=== PATIENT | female | born 1940 | race Caucasian/White ===

== ENCOUNTER → 2017-03-11 | Outpatient (CLI) | payer OTHER, MEDICARE ==
[~2017-03-11] MED LIST: ALL100 PO; ATEN-175 PO; FELO10TA2 PO; LISI40TA PO; LSX20 PO
--- NOTE | 2017-03-11 08:13 | MAMMOGRAPHY REPORT ---
BILATERAL DIGITAL SCREENING MAMMOGRAM WITH CAD: 03/11/2017 CLINICAL HISTORY: Routine screening. Patient has no complaints. TECHNIQUE: Bilateral CC and MLO views were obtained. Current study was also evaluated with a Compute r Aided Detection (CAD) system. COMPARISON: Comparison is made to exams dated: 03/10/2016 mammogram, 03/07/2015 mammogram, 02/24/2013 m ammogram, 02/23/2012 mammogram, 02/13/2011 mammogram, and 02/07/2010 mammogram - [facility]. BREAST COMPOSITION: There are scattered areas of fibroglandular density in both breasts. FINDINGS: There are benign coarse calcifications in the breasts, and a stable intramammary lymph node in the right upper outer quadrant. No new suspicious mass, architectural distortion or cluster of m icrocalcifications is seen. IMPRESSION: ACR BI-RADS CATEGORY 1: NEGATIVE There is no mammographic evidence of malignancy. A 1 year screening mammogram is recommended. The pa tient will receive written notification of the results. Approximately 10% of breast cancers are not detected with mammography. A negative mammographic report should not delay biopsy if a clinically suggestive mass is present. Dixie Romero M.D. ay/:03/11/2017 07:36:32 Intellectual Property Manager: Chrissy MCCRAY(R)(Xi), [facility] letter sent: Normal 1/2 BI-RADS Code: ACR BI-RADS Category 1: Negative
== END | disposition home or self-care (01) ==
LOC: C.MAMM 07:09
PROVIDERS: ATTEND Family Medicine
DX: Z12.31 Encounter for screening mammogram for malignant neoplasm of breast (principal)

== ENCOUNTER 2020-12-21 12:10 | Inpatient (IN) ==
[2020-12-21 14:36] LABS: Basophils # (auto) 0.03 K/uL (0-0.2); Basophils % (auto) 0.3 %; Eosinophils # (auto) 0.02 K/uL (0-0.5); Eosinophils % (auto) 0.2 %; Hematocrit (blood only) 38.6 % (37-47); Hemoglobin 13.1 g/dL (12.0-16.0); Immature Granulocytes # (auto) 0.02 K/uL (0.00-0.02); Immature Granulocytes % (auto) 0.2 %; Lymphocytes # (auto) 1.32 K/uL (1.2-3.4); Lymphocytes % (auto) 13.6 %; Mean Corpuscular Hgb Conc 33.9 g/dL (32-36); Mean Corpuscular Volume 97.2 fL (80-100); Mean Platelet Volume 10.3 fL (7.4-10.4); Monocytes # (auto) 1.03 K/uL (0.11-0.59); Monocytes % (auto) 10.6 %; Neutrophils # (auto) 7.32 K/uL (1.4-6.5); Neutrophils % (auto) 75.1 %; Platelet Count 167 K/uL (130-400); RDW Coefficient of Variation 14.5 % (11.5-14.5); RDW Standard Deviation 51.6 fL (36.4-46.3); Red Blood Count 3.97 M/uL (4.2-5.4); White Blood Count 9.74 K/uL (4.8-10.8)
[2020-12-21 15:02] LABS: Albumin Globulin Ratio 0.8 (0.9-2); BUN Creatinine Ratio 28.2 (10-20); Bilirubin,Total 0.5 mg/dl (0.2-1); Creatinine Clr Calc Pharmacy 26.8 ml/min; Est GFR (African American) 41.5 ml/min; Est GFR (Non-African American) 35.8 ml/min; Globulin 3.9 gm/dl (2.5-4.0); Total Protein 6.9 gm/dl (6.4-8.2)
--- NOTE | 2020-12-21 15:23 | Surgery Consultation ---
Date of Consultation December 21, 2020 Assessment & Plan (1) SBO (small bowel obstruction): 80 yo female with 1 month history of intermittent vomiting, decreased appetite, early satiety, and weight loss. Outpatient CT scan showing history of Billroth II procedure with distended stomach and distended efferent loop of bowel. - afebrile, vitals stable - abdomen is soft and benign Plan: Recommend medicine admit for conservative treatment with NGT decompression, bowel rest, and IV fluid hydration. She likely will feel much better with NGT insertion given amount of stomach distention She may need outpatient follow-up with Surgeon in [place] if her symptoms persists given her Billroth II procedure and complex abdominal history Will follow along. Dr. Obregon has seen and examined patient, discussed CT scan findings with patient. Please see addendum for further recommendations/plan. Supervising Physician Co-Signing Physician Notes Pt personally seen and examined. Agree with history and physical as per SUNIL Jules. Symptoms have been going on for last month, minimal pain but intermittent nausea and vomiting. CT scan done today (personally reviewed) shows partial SBO of efferent limb. She had quite a complicated course following her Billroth 2 with fistula formation, poor wound healing. Agree with medical admission, ng decompression, bowel rest. History of Present Illness Reason for Consultation: SBO Requesting Physician: Dr. Aguirre History of Present Illness Bette is a pleasant 80 yo female who presented to ED due to 1 month history of intermittent vomiting with associated low appetite and 15 pound weight loss. 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 difficile infection. She was seen at her pcp office earlier this week and had labs and CT scan of abdomen and pelvis with oral contrast only due to the intermittent vomiting and weight loss, fatigue, and anorexia. Bette states that these symptoms have been intermittent and no progressing. Some days are good some days are better. No vomiting blood. No significant abdominal pain with these symptoms either. CT scan of abdomen and pelvis showing postsurgical changes of Billroth II procedure with distended debris and fluid filled stomach and distention of efferent loop of bowel crossing over the abdominal aorta. There is contrast seen in distal bowel to this transition point likely a partial bowel obstruction. She has no leukocytosis. Her creatinine slightly elevated but improved compared to outpatient labs 1.6 two days ago. Allergies Allergy/AdvReac Type Severity Reaction Status Date / Time No Known Allergies Allergy Unknown Verified 12/21/20 15:16 Home Medications Medication Instructions Recorded Confirmed Type allopurinol 100 mg tablet 100 mg PO QAM 05/04/18 12/21/20 History clonidine HCl 0.1 mg tablet 0.1 mg PO QAM 05/04/18 12/21/20 History furosemide 20 mg tablet 20 mg PO QAM PRN 05/04/18 12/21/20 History lisinopril 40 mg tablet 40 mg PO QAM 05/04/18 12/21/20 History multivitamin 1 tab PO QAM 05/04/18 12/21/20 History vit C,E,zinc,copper-zmuhk4l 250 1 cap PO QAM 09/02/20 12/21/20 History mg-lutein 5 mg-zeaxanthin 1 mg capsule (Ocuvite Adult 50 Plus) Patient History Medical History (Updated 12/21/20 @ 15:20 by Perlita Armas PA-C) GI bleed Gout Hypertension Poor historian Surgical History (Updated 12/21/20 @ 15:15 by Perlita Armas PA-C) History of abdominal surgery R/T GI BLEED History of Billroth II operation History of cataract surgery RT History of cholecystectomy History of tooth extraction History of total knee replacement BL Social History (Updated 08/30/20 @ 15:22 by Ammon Delgadillo) Smoking Status: Never smoker Second Hand Exposure: No; Hx Alcohol Use: Yes Alcohol type: wine Hx Substance Use: No Preferred Language: Icelandic Communication Ability: Effective 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 Beliefs That Will Affect Care: None marital status: / Current Living Situation: Alone current occupational status: retired Feels Safe at Home: Yes Assistive Devices: Denture - Lower and Glasses Review of Systems Review of Systems: as per HPI Physical Exam Constitutional: well developed and well nourished; no acute distress in no acute distress Respiratory: normal respiratory effort, lungs clear to auscultation normal respiratory effort; no respiratory distress and no labored breathing Cardiovascular: Rate/Rhythm: regular rate and regular rhythm Gastrointestinal (Abdomen): Inspection/Auscultation: abdomen normal to inspection, + abdomen distended, normal bowel sounds and + abdominal surgical scar (cholecystectomy scar RUQ, upper midline scar) Percussion/Palpation: + abdomen tender (appropriate post op at incision sites), abdomen soft and + hernia (supraumbilical , reducible, defect measures about 2 cm) Skin: no rashes, warm and dry Neurologic: awake Psychiatric: A+Ox3, euthymic affect Results & Data ([place]) Vital Signs (Past 12 Hours) Vital Signs Temp Pulse Pulse Resp BP BP Pulse Ox 12/21/20 14:07 88 20 94 12/21/20 13:25 85 20 133/85 12/21/20 12:17 37 C 111 H 18 102/58 L 96 Laboratory Results 12/21/20 12/21/20 Range/Units 14:24 14:24 WBC 9.74 (4.8-10.8) K/uL RBC 3.97 L (4.2-5.4) M/uL Hgb 13.1 (12.0-16.0) g/dL Hct 38.6 (37-47) % MCV 97.2 (80-100) fL MCH 33.0 (25-34) pg MCHC 33.9 (32-36) g/dL RDW Std Deviation 51.6 H (36.4-46.3) fL RDW Coeff of Robert 14.5 (11.5-14.5) % Plt Count 167 (130-400) K/uL MPV 10.3 (7.4-10.4) fL Immature Gran % (Auto) 0.2 % Neut % (Auto) 75.1 % Lymph % (Auto) 13.6 % [place] % (Auto) 10.6 % Eos % (Auto) 0.2 % Baso % (Auto) 0.3 % Neut # (Auto) 7.32 H (1.4-6.5) K/uL Lymph # (Auto) 1.32 (1.2-3.4) K/uL [place] # (Auto) 1.03 H (0.11-0.59) K/uL Eos # (Auto) 0.02 (0-0.5) K/uL Baso # (Auto) 0.03 (0-0.2) K/uL Immature Gran # (Auto) 0.02 (0.00-0.02) K/uL Sodium 136 (136-145) mmol/L Potassium (3.5-5.1) mmol/L Chloride 105 (98-107) mmol/L Carbon Dioxide 24 (21-32) mmol/L Anion Gap 7.0 (3-11) BUN 39 H (7-18) mg/dl Creatinine 1.37 H (0.6-1.2) mg/dl Est Cr Clr Drug Dosing 26.8 ml/min Est GFR ( Amer) 41.5 ml/min Est GFR (Non-Af Amer) 35.8 ml/min BUN/Creatinine Ratio 28.2 H (10-20) Glucose 110 H (70-99) mg/dl Calcium 9.0 (8.5-10.1) mg/dl Total Bilirubin 0.5 (0.2-1) mg/dl AST (15-37) U/L ALT 18 (12-78) U/L Alkaline Phosphatase 90 (45-117) U/L Total Protein 6.9 (6.4-8.2) gm/dl Albumin 3.0 L (3.4-5.0) gm/dl Globulin 3.9 (2.5-4.0) gm/dl Albumin/Globulin Ratio 0.8 L (0.9-2) Lipase 230 (73-393) U/L Diagnostic Findings Ct scan of abdomen and pelvis with oral contrast only at [facility]: postsurgical changes of Billroth II procedure with distended fluid and debris filled stomach with distention of efferent limb of bowel which decompressed around aorta and contrast was seen in distal bowel.
--- NOTE | 2020-12-21 16:44 | History & Physical Report ---
Date of Service December 21, 2020 Assessment & Plan (1) SBO (small bowel obstruction): Plan: Pt is 80 y/o F with PMH HTN, dyslipidemia, LE edema, CKD III, gout presented to ER with complaint of intermittent nausea and vomiting x1 month. Outpatient CT abdomen pelvis with oral contrast Impression: 1. Postsurgical changes of Billroth II procedure. The stomach is distended with fluid and food debris. There is dilation of the efferent limb of the small bowel with focal transition point as the small bowel crosses anterior to the aorta and posterior to the stomach. This likely represents a partial obstruction. 2. 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 3. Partially visualized calcified mass arising from the coccyx incompletely evaluated on this exam. Dedicated pelvic radiographs are recommended for further evaluation In ER patient afebrile, no leukocytosis. NG tube was placed and over 500 mL output initially. KUB after NG tube placement shows NG tube within distal body of stomach N.p.o. Gentle IVF KUB in a.m. General surgery consult, saw patient in ER recommends conservative measures at this time CBC, BMP in a.m. (2) Hypertension: Plan: Will convert oral clonidine to clonidine patch while n.p.o. Hold lisinopril, Lasix (3) CKD (chronic kidney disease), stage III: Plan: Cr: 1.37. Baseline Cr: ~1.6 Monitor renal functions, avoid nephrotoxic agents when possible (4) Leg edema: Plan: Chronic BLE edema. Denies any worsening Hold Lasix currently (5) Gout: Plan: Hold allopurinol for now n.p.o. DVT Prophylaxis -SCDs Full Code as per discussion with pt Follows with Dr Love for routine care Pt was seen and care coordinated with Dr Tate. See addendum History of Present Illness Chief Complaint: Abnormal CT scan Primary Care Provider: Daniel Love, Pt is 80 y/o F with PMH HTN, dyslipidemia, LE edema, CKD III, gout presented to ER with complaint of intermittent nausea and vomiting x1 month. Reports episodes of vomiting after eating for the past month. Patient denies abdominal discomfort. Reports last bowel movement several days ago. Does not feel like she has been passing flatus. Denies fever, chills, hematemesis, diarrhea, melena, hematochezia, JASSO, dizziness, syncope, vision changes, neck pain, CP, SOB, orthopnea, palpitations, cough, sore throat, choking, otalgia, rhinorrhea, paresthesias, weakness, extremity weakness, extremity edema, rashes, urinary symptoms. Pt followed up with PCP had outpatient CT abdomen/pelvis today and was referred to ER. CT abdomen pelvis with oral contrast Impression: 1. Postsurgical changes of Billroth II procedure. The stomach is distended with fluid and food debris. There is dilation of the efferent limb of the small bowel with focal transition point as the small bowel crosses anterior to the aorta and posterior to the stomach. This likely represents a partial obstruction. 2. 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 3. Partially visualized calcified mass arising from the coccyx incompletely evaluated on this exam. Dedicated pelvic radiographs are recommended for further evaluation In ER patient afebrile, no leukocytosis. NG tube was placed and over 500 mL output initially. KUB after NG tube placement shows NG tube within distal body of stomach. Patient being admitted for further evaluation and treatment Allergies Allergy/AdvReac Type Severity Reaction Status Date / Time No Known Allergies Allergy Unknown Verified 12/21/20 15:16 Home Medications Medication Instructions Recorded Confirmed Type allopurinol 100 mg tablet 100 mg PO QAM 05/04/18 12/21/20 History clonidine HCl 0.1 mg tablet 0.1 mg PO QAM 05/04/18 12/21/20 History furosemide 20 mg tablet 20 mg PO QAM PRN 05/04/18 12/21/20 History lisinopril 40 mg tablet 40 mg PO QAM 05/04/18 12/21/20 History multivitamin 1 tab PO QAM 05/04/18 12/21/20 History vit C,E,zinc,copper-intpw4y 250 1 cap PO QAM 09/02/20 12/21/20 History mg-lutein 5 mg-zeaxanthin 1 mg capsule (Ocuvite Adult 50 Plus) Past Med/Surg History Medical History CKD (chronic kidney disease), stage III Dyslipidemia GI bleed Gout Hypertension Leg edema Poor historian Surgical History History of abdominal surgery R/T GI BLEED History of Billroth II operation History of cataract surgery RT History of cholecystectomy History of tooth extraction History of total knee replacement BL Family History (Updated 12/21/20 @ 20:29 by Carolina Cornell PA-C) Father Cancer Brother Heart disease Mother Hypertension Social History Smoking Status: Never smoker Second Hand Exposure: No; Do You Dip or Chew Tobacco: No; Hx Alcohol Use: No Hx Substance Use: No Preferred Language: P[place] Communication Ability: Effective 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 Beliefs That Will Affect Care: None marital status: / Current Living Situation: Alone current occupational status: retired Other Information That Helps Us Care for You: No Feels Safe at Home: Yes Safety Concerns: Feels Safe At This Time Assistive Devices: None and Walker Assistive Devices Comment: Cane out of house Medical History CKD (chronic kidney disease), stage III Dyslipidemia GI bleed Gout Hypertension Leg edema Poor historian Surgical History History of abdominal surgery R/T GI BLEED History of Billroth II operation History of cataract surgery RT History of cholecystectomy History of tooth extraction History of total knee replacement BL Family History (Updated 12/21/20 @ 20:29 by Carolina Cornell PA-C) Father Cancer Brother Heart disease Mother Hypertension Social History Smoking Status: Never smoker Second Hand Exposure: No; Do You Dip or Chew Tobacco: No; Hx Alcohol Use: No Hx Substance Use: No Preferred Language: P[place] Communication Ability: Effective 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 Beliefs That Will Affect Care: None marital status: / Current Living Situation: Alone current occupational status: retired Other Information That Helps Us Care for You: No Feels Safe at Home: Yes Safety Concerns: Feels Safe At This Time Assistive Devices: None and Walker Assistive Devices Comment: Cane out of house Review of Systems Review of Systems: All systems reviewed & are unremarkable except as noted in HPI & below Physical Exam Physical Exam: General: no distress, WDWN Head: normocephalic, atraumatic Eyes: conjunctiva non-injected, anicteric ENT: hard of hearing, normal inspection external ears, nose, mucous membranes moist, +NG tube in place Neck: supple, trachea midline Lungs: clear, no respiratory distress, no wheezing/rhonchi/rales CV: RRR, no murmur Abd: hypoactive BS, distended, soft, non-tender Ext: no cyanosis, no calf tenderness, +edema BLE Neuro: A&O x 3, no focal deficits noted, normal affect Skin: warm, dry Results & Data Results & Data ([facility]) Vital Signs (Past 12 Hours) Vital Signs Temp Pulse Pulse Resp BP BP Pulse Ox 12/21/20 15:00 86 20 159/93 H 99 12/21/20 14:07 88 20 94 12/21/20 13:25 85 20 133/85 12/21/20 12:17 37 C 111 H 18 102/58 L 96 Laboratory Results Short CBC 12/21/20 Range/Units 14:24 WBC 9.74 (4.8-10.8) K/uL Hgb 13.1 (12.0-16.0) g/dL Hct 38.6 (37-47) % Plt Count 167 (130-400) K/uL BMP 12/21/20 14:24 Sodium 136 Potassium Chloride 105 Carbon Dioxide 24 BUN 39 H Creatinine 1.37 H Glucose 110 H Calcium 9.0 Liver Function 12/21/20 Range/Units 14:24 Total Bilirubin 0.5 (0.2-1) mg/dl AST (15-37) U/L ALT 18 (12-78) U/L Alkaline Phosphatase 90 (45-117) U/L Albumin 3.0 L (3.4-5.0) gm/dl Diagnostic Findings KUB X-Ray 12/21/20 16:21 KUB CLINICAL HISTORY: assess NG tube placement COMPARISON STUDY: CT of the abdomen and pelvis September 02, 2020. FINDINGS: The tip of the nasogastric tube projects over the distal body of the stomach. Ingested contents within the stomach are incidentally noted. Visualized bowel gas pattern is normal. IMPRESSION: Tip of nasogastric tube within the distal body of the stomach. ACT 112: Negative or not required by law. Electronically signed by: Dick Lackey M.D. 12/21/2020 5:15 PM Code Status & VTE Plan VTE Prophylaxis Plan VTE Prophylaxis will be ordered: Yes Supervising Physician Co-Signing Physician Notes Pt was seen and examined. Agreed with Carolina GARCIA exam, assessment and Plan. 80 y/o F with PMH HTN, dyslipidemia, LE edema, CKD III, gout presented to ER with complaint of intermittent nausea and vomiting x1 month. Pt said that she has been having episodes of N/V after each meal. He said that she has not had a bowel movement for days. Denies fever, chills, hematemesis, diarrhea, melena, h ematochezia, JASSO, dizziness, syncope, vision changes, neck pain, CP, SOB, orthopnea, palpitations, cough, sore throat. In the ER CT abd/pelvis showed ilation of the efferent limb of the small bowel with focal transition point as the small bowel crosses anterior to the aorta and posterior to the stomach. This likely represents a partial obstruction. NGT was placed in the ER and over 500 mL output initially. KUB after NG tube placement shows NG tube within distal body of stomach. Surgery was consulted and recommended conservative management. Continue gently IVF hydration. Will keep NPO. Will check KUB in am. Continue monitor electrolytes. Will monitor closely during the hospital course. MD Bebeto
--- NOTE | 2020-12-21 17:17 | XRay Report ---
KUB CLINICAL HISTORY: assess NG tube placement COMPARISON STUDY: CT of the abdomen and pelvis September 02, 2020. FINDINGS: The tip of the nasogastric tube projects over the distal body of the stomach. Ingested cont ents within the stomach are incidentally noted. Visualized bowel gas pattern is normal. IMPRESSION: Tip of nasogastric tube within the distal body of the stomach. ACT 112: Negative or not required by law. Electronically signed by: Dick Lackey M.D. 12/21/2020 5:15 PM
[2020-12-21] MEDS ORDERED: cloNIDine HCL 0.1 MG/24 HR TRANSDERM SYS TD SCH (21:09)
[2020-12-21] MEDS ORDERED: ONDANSETRON INJ 2 MG/ML 2 ML VIAL IV PRN (21:09)
[2020-12-21] MEDS ORDERED: ACETAMINOPHEN 1000 MG/100 ML IV IV PRN (21:09)
[2020-12-21] MEDS ORDERED: SODIUM CHLORIDE 0.9% 1000ML 1,000 ML IV SCH (21:09)
[2020-12-22] MEDS: CHECK CLONIDINE PATCH PLACEMENT SCH ×3 (00:15→17:13)
[2020-12-22 07:46] LABS: Hematocrit (blood only) 39.4 % (37-47); Hemoglobin 13.4 g/dL (12.0-16.0); Mean Corpuscular Hemoglobin 33.3 pg (25-34); Mean Platelet Volume 10.2 fL (7.4-10.4); Platelet Count 172 K/uL (130-400); RDW Coefficient of Variation 14.4 % (11.5-14.5); RDW Standard Deviation 51.6 fL (36.4-46.3); Red Blood Count 4.02 M/uL (4.2-5.4)
[2020-12-22 08:16] LABS: BUN Creatinine Ratio 29.6 (10-20); Calcium 8.4 mg/dl (8.5-10.1); Creatinine Clr Calc Pharmacy 34.2 ml/min; Est GFR (African American) 54.7 ml/min; Est GFR (Non-African American) 47.2 ml/min; Potassium 3.9 mmol/L (3.5-5.1)
--- NOTE | 2020-12-22 08:35 | XRay Report ---
KUB HISTORY: Small bowel obstruction. Follow-up. COMPARISON: KUB 12/21/2020. FINDINGS: Nasogastric tube terminates in the stomach. This remains unchanged. Residual contrast withi n the colon. There is moderate well-formed stool seen within the colon and rectum. No dilated loops o f small bowel identified at this time. The lung bases are clear. No renal calculi. No ureteral calcu li. No pneumoperitoneum or pneumatosis. IMPRESSION: 1. Nasogastric tube terminates in the stomach. 2. No dilated loops of bowel. ACT 112: Negative or not required by law. Electronically signed by: Tyler Kaplan M.D. 12/22/2020 8:34 AM
--- NOTE | 2020-12-22 11:10 | Surgery Progress Note ---
Date of Service December 22, 2020 Assessment & Plan (1) SBO (small bowel obstruction): Plan: 80 yo female with 1 month history of intermittent vomiting, decreased appetite, early satiety, and weight loss. Outpatient CT scan showing history of Billroth II procedure with distended stomach and distended efferent loop of bowel. AXR following ng tube placement shows resolution of bowel dilation. Abdomen remains benign. Plan:Improving with conservative treatment. Continue ng decompression until tomorrow. If passes gas/ bowel movement, OK to remove ng and slowly advance diet. May benefit from small bowel followthrough at some point given chronicity of her symptoms. She may need outpatient follow-up with Surgeon in [place] if her symptoms persists given her Billroth II procedure and complex abdominal history Present on Admission?: Yes Admission and Anticipated Discharge Date Admission Date: December 21, 2020 Subjective Feels better. NG with 100 cc output overnight. No further nausea/ vomiting. No abdominal pain. No bowel movement yet. Physical Exam Constitutional: well developed and well nourished; no acute distress Respiratory: normal respiratory effort, lungs clear to auscultation normal respiratory effort; no respiratory distress and no labored breathing Cardiovascular: Rate/Rhythm: regular rate and regular rhythm Gastrointestinal (Abdomen): Inspection/Auscultation: abdomen normal to inspection, + abdomen distended, normal bowel sounds and + abdominal surgical scar (cholecystectomy scar RUQ, upper midline scar) Percussion/Palpation: + abdomen tender (appropriate post op at incision sites), abdomen soft and + hernia (supraumbilical , reducible, defect measures about 2 cm) Skin: no rashes, warm and dry Neurologic: awake Psychiatric: A+Ox3, euthymic affect Results & Data ([facility]) Vital Signs (Past 12 Hours) Vital Signs Temp Pulse Pulse Resp BP Pulse Ox 12/22/20 07:57 37 C 80 18 142/84 H 95 12/22/20 07:25 86 12/22/20 03:40 37.1 C 68 18 125/77 97 12/22/20 00:24 86 Laboratory Results Abnormal lab results 12/21/20 12/21/20 12/22/20 Range/Units 14:24 14:24 07:00 RBC 3.97 L 4.02 L (4.2-5.4) M/uL RDW Std Deviation 51.6 H 51.6 H (36.4-46.3) fL Neut # (Auto) 7.32 H (1.4-6.5) K/uL [place] # (Auto) 1.03 H (0.11-0.59) K/uL BUN 39 H (7-18) mg/dl Creatinine 1.37 H (0.6-1.2) mg/dl BUN/Creatinine Ratio 28.2 H (10-20) Glucose 110 H (70-99) mg/dl Calcium (8.5-10.1) mg/dl Albumin 3.0 L (3.4-5.0) gm/dl Albumin/Globulin Ratio 0.8 L (0.9-2) 12/22/20 Range/Units 07:00 RBC (4.2-5.4) M/uL RDW Std Deviation (36.4-46.3) fL Neut # (Auto) (1.4-6.5) K/uL [place] # (Auto) (0.11-0.59) K/uL BUN 32 H (7-18) mg/dl Creatinine (0.6-1.2) mg/dl BUN/Creatinine Ratio 29.6 H (10-20) Glucose (70-99) mg/dl Calcium 8.4 L (8.5-10.1) mg/dl Albumin (3.4-5.0) gm/dl Albumin/Globulin Ratio (0.9-2)
[2020-12-22] MEDS ORDERED: MICONAZOLE NITRATE POWDER 43 GM EXT PRN (13:52)
--- NOTE | 2020-12-22 15:25 | Hospitalist Progress Note ---
Date of Service December 22, 2020 Assessment & Plan (1) SBO (small bowel obstruction): Plan: Pt is 80 y/o F with PMH HTN, dyslipidemia, LE edema, CKD III, gout presented to ER with complaint of intermittent nausea and vomiting x1 month. Outpatient CT abdomen pelvis with oral contrast Impression: 1. Postsurgical changes of Billroth II procedure. The stomach is distended with fluid and food debris. There is dilation of the efferent limb of the small bowel with focal transition point as the small bowel crosses anterior to the aorta and posterior to the stomach. This likely represents a partial obstruction. 2. 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 3. Partially visualized calcified mass arising from the coccyx incompletely evaluated on this exam. Dedicated pelvic radiographs are recommended for further evaluation KUB showed the tip of the nasogastric tube projects over the distal body of the stomach. Ingested contents within the stomach are incidentally noted. Visualized bowel gas pattern is normal. Continue NGT tube with low suction Surgery on board recommended to continue ng decompression until tomorrow. If passes gas/ bowel movement, OK to remove ng and slowly advance diet. Will need outpatient follow-up with Surgeon in [place] if her symptoms persists given her Billroth II procedure and complex abdominal history Keep NPO for now Will continue gentle hydration (2) Hypertension: Plan: Continue clonidine patch while n.p.o. Continue to hold lisinopril, Lasix (3) CKD (chronic kidney disease), stage III: Plan: Creatinine 1.09, Baseline Cr: ~1.6 Monitor renal functions, avoid nephrotoxic agents when possible (4) Leg edema: Plan: Chronic BLE edema. Denies any worsening Continue to hold Lasix currently Will monitor closely (5) Gout: Plan: Continue to hold allopurinol for now while n.p.o. DVT Prophylaxis SCDs Full Code Admission and Anticipated Discharge Date Admission Date: December 21, 2020 Subjective Pt was seen and examined for follow of SBO Lying in bed with no distress Pt said that she feels a little better She said that she is not having any abdominal pain She said that her abdomen feels less distended today Denies any chest pain, palpitation, dizziness and SOB Physical Exam Physical Exam: General- No acute distress Head- atraumatic Eyes- PERRL, EOMI, ENT- NG tube in place Neck- supple, no JVD Lungs- clear to auscultation Heart- regular rhythm; no murmur Abdomen- abdomen soft and + hernia, hypoactive bowel sound Extremities- no calf tenderness Neuro- alert, oriented, PERRL, EOMI; no facial palsy; no dysarthria Skin- warm & dry Results & Data Results & Data ([facility]) Vital Signs (Past 12 Hours) Vital Signs Temp Pulse Pulse Resp BP Pulse Ox 12/22/20 12:00 37 C 67 18 132/60 100 12/22/20 07:57 37 C 80 18 142/84 H 95 12/22/20 07:25 86 12/22/20 03:40 37.1 C 68 18 125/77 97
--- NOTE | 2020-12-22 17:19 | Emergency Department Note ---
Impression & Plan SBO (small bowel obstruction), CKD (chronic kidney disease), stage III ED Provider Note NAME: ORA JARVIS AGE: 80 SEX: F : 1940 ARRIVES VIA: Walk-In INFORMANT: Patient, ED PROVIDER(S): Daryn Aguirre MD CHIEF COMPLAINT: Abnomal CT scan HPI: This is a 80-year-old female who was sent in by the primary care physician over concerns of an abnormal CAT scan. The patient reports she has been unable to eat a normal meal for the past month. She reports only eating small amounts unless she has to vomit. She reports a weight loss with this. She denies any abdominal pain. She went to her primary care doctor's office who had a CAT scan performed. She knows that she has some sort of bowel obstruction on the CAT scan . ROS: See above HPI for pertinent positives & negatives. A total of 10 systems reviewed and were otherwise negative. PAST MEDICAL HISTORY: See Below PAST SURGICAL HISTORY: See Below FAMILY HISTORY: See Below SOCIAL HISTORY: See Below HOME MEDICATIONS: See Below ALLERGIES: See Below VITALS: See Below PHYSICAL EXAMINATION: VITAL SIGNS - Vital signs and nursing notes were reviewed. GENERAL - 80-year-old female appearing stated age who is in no acute distress. Communicates well with provider and answers questions appropriately. SKIN - Without rashes. HEAD - NC/AT. EYES - PERRL with EOMI bilaterally. Sclera anicteric. Palpebral conjunctiva pink and moist with no injection noted. EARS - No deformities of external structures noted on gross examination bilaterally. NOSE - Midline and without cyanosis. No epistaxis or purulent drainage noted. Septum midline without deviation or septal hematoma noted. MOUTH/OROPHARYNX - Without perioral cyanosis. Buccal mucosa pink and moist and without leukoplakia. Tongue midline with equal elevation of palate bilaterally. No tonsillar hypertrophy, erythema, or exudates noted. NECK - Neck with FROM. Supple to palpation. No nuchal rigidity. LUNGS - Chest wall symmetric without accessory muscle use, intercostals retractions, or central cyanosis. Normal vesicular breath sounds CTA B/L. No wheezes, rales, or rhonchi appreciated. CARDIAC - RRR with S1/S2. No murmur, rubs, or gallops appreciated. ABDOMEN - Abdominal contour without pulsations or visible masses. BS normoactive all four quadrants. No tenderness, palpable masses, hepatosplenomegaly, or ascites noted. EXTREMITIES - No clubbing or peripheral cyanosis. No pretibial edema present. +3/5 radial, posterior tibial, and dorsalis pedis pulses palpated throughout. +5/5 strength noted in UE/LE bilaterally. NEUROLOGIC - Cranial nerves II through XII grossly intact. Sensory intact to light touch throughout. Patellar reflexes +2/4. PSYCH - A&Ox3 and cooperates fully with examiner. Pt is very pleasant and interacts well with examiner. MEDICAL DECISION MAKING: Patient was seen and evaluated as above in room B2. Review was performed of nursing notes and vital signs. I did review pertinent previous visits and patient history. After obtaining a thorough history and physical examination the above work up was performed. This is a 1-year-old female who presents emergency department over concerns that she has a bowel obstruction on the CAT scan of the abdomen pelvis. I did discuss the case with surgery who asked that the patient be admitted to the medicine service and that a NG tube be placed. In the meanwhile the patient was given a normal saline bolus. I did discuss the case with the medicine service who did agree to admit the patient. I will note that the patient does not have an elevation in her white blood cell count has a normal renal profile. An order was placed for continuous cardiac monitoring. The monitor shows a rate of 88 with NormalSinus rhythm. The patient was evaluated during a period of high volume and high acuity during the global COVID-19 pandemic, and that diagnosis was suspected/considered upon their initial presentation. Their evaluation, treatment and testing was consistent with current guidelines for patients who present with complaints or symptoms that may be related to COVID-19. Patient was seen while provider was wearing PPE. Triage Nursing notes reviewed. Prior medical records reviewed Vital Signs: reviewed and remarkable for no significant abnormalities Differential diagnosis: Appendicitis, ovarian cyst, ovarian torsion, ectopic , TOA, PID, infe ctions, diverticulitis, UTI, obstruction, mesenteric ischemia, aortic pathology, inflammatory bowel disease, renal colic, PUD, pancreatitis, biliary pathology, hernia, volvulus, constipation, as well as other pathologies. ER treatment provided: See below Laboratory studies: As stated above and show below. Imaging studies: See below Consultation(s): Gen Surgery InternalMedicine Past Med/Surg History Medical History CKD (chronic kidney disease), stage III Dyslipidemia GI bleed Gout Hypertension Leg edema Poor historian Surgical History History of abdominal surgery R/T GI BLEED History of Billroth II operation History of cataract surgery RT History of cholecystectomy History of tooth extraction History of total knee replacement BL Family History (Updated 12/21/20 @ 20:29 by Carolina Cornell PA-C) Father Cancer Brother Heart disease Mother Hypertension Social History Smoking Status: Never smoker Second Hand Exposure: No; Do You Dip or Chew Tobacco: No; Hx Alcohol Use: No Hx Substance Use: No Preferred Language: Tristanian Communication Ability: Effective Technical Services Specialist Required: No Beliefs That Will Affect Care: None marital status: / Current Living Situation: Alone current occupational status: retired Other Information That Helps Us Care for You: No Feels Safe at Home: Yes Safety Concerns: Feels Safe At This Time Assistive Devices: None Assistive Devices Comment: Cane out of house Allergies Allergies Allergy/AdvReac Type Severity Reaction Status Date / Time No Known Allergies Allergy Unknown Verified 12/21/20 15:16 Home Meds Home Medications Medication Instructions Recorded Confirmed allopurinol 100 mg tablet 100 mg PO QAM 05/04/18 12/21/20 clonidine HCl 0.1 mg tablet 0.1 mg PO QAM 05/04/18 12/21/20 furosemide 20 mg tablet 20 mg PO QAM PRN 05/04/18 12/21/20 lisinopril 40 mg tablet 40 mg PO QAM 05/04/18 12/21/20 multivitamin 1 tab PO QAM 05/04/18 12/21/20 vit C,E,zinc,copper-lcpxd7q 250 1 cap PO QAM 09/02/20 12/21/20 mg-lutein 5 mg-zeaxanthin 1 mg capsule (Ocuvite Adult 50 Plus) Results & Data (ED) Laboratory Data Result diagrams: 12/22/20 07:00 12/22/20 07:00 Lab Results 07/16/21 07/16/21 07/16/21 Range/Units 14:24 14:24 16:00 WBC 9.74 (4.8-10.8) K/uL RBC 3.97 L (4.2-5.4) M/uL Hgb 13.1 (12.0-16.0) g/dL Hct 38.6 (37-47) % MCV 97.2 (80-100) fL MCH 33.0 (25-34) pg MCHC 33.9 (32-36) g/dL RDW Std Deviation 51.6 H (36.4-46.3) fL RDW Coeff of Robert 14.5 (11.5-14.5) % Plt Count 167 (130-400) K/uL MPV 10.3 (7.4-10.4) fL Immature Gran % (Auto) 0.2 % Neut % (Auto) 75.1 % Lymph % (Auto) 13.6 % Terrell % (Auto) 10.6 % Eos % (Auto) 0.2 % Baso % (Auto) 0.3 % Neut # (Auto) 7.32 H (1.4-6.5) K/uL Lymph # (Auto) 1.32 (1.2-3.4) K/uL Terrell # (Auto) 1.03 H (0.11-0.59) K/uL Eos # (Auto) 0.02 (0-0.5) K/uL Baso # (Auto) 0.03 (0-0.2) K/uL Immature Gran # (Auto) 0.02 (0.00-0.02) K/uL Sodium 136 (136-145) mmol/L Potassium (3.5-5.1) mmol/L Chloride 105 (98-107) mmol/L Carbon Dioxide 24 (21-32) mmol/L Anion Gap 7.0 (3-11) BUN 39 H (7-18) mg/dl Creatinine 1.37 H (0.6-1.2) mg/dl Est Cr Clr Drug Dosing 26.8 ml/min Est GFR ( Amer) 41.5 ml/min Est GFR (Non-Af Amer) 35.8 ml/min BUN/Creatinine Ratio 28.2 H (10-20) Glucose 110 H (70-99) mg/dl Calcium 9.0 (8.5-10.1) mg/dl Total Bilirubin 0.5 (0.2-1) mg/dl AST (15-37) U/L ALT 18 (12-78) U/L Alkaline Phosphatase 90 (45-117) U/L Total Protein 6.9 (6.4-8.2) gm/dl Albumin 3.0 L (3.4-5.0) gm/dl Globulin 3.9 (2.5-4.0) gm/dl Albumin/Globulin Ratio 0.8 L (0.9-2) Lipase 230 (73-393) U/L COVID-19 Eval Order Covid19 at [facility] SARS-CoV-2 (PCR) (Negative) 12/21/20 Range/Units 16:00 WBC (4.8-10.8) K/uL RBC (4.2-5.4) M/uL Hgb (12.0-16.0) g/dL Hct (37-47) % MCV (80-100) fL MCH (25-34) pg MCHC (32-36) g/dL RDW Std Deviation (36.4-46.3) fL RDW Coeff of Robert (11.5-14.5) % Plt Count (130-400) K/uL MPV (7.4-10.4) fL Immature Gran % (Auto) % Neut % (Auto) % Lymph % (Auto) % Terrell % (Auto) % Eos % (Auto) % Baso % (Auto) % Neut # (Auto) (1.4-6.5) K/uL Lymph # (Auto) (1.2-3.4) K/uL Terrell # (Auto) (0.11-0.59) K/uL Eos # (Auto) (0-0.5) K/uL Baso # (Auto) (0-0.2) K/uL Immature Gran # (Auto) (0.00-0.02) K/uL Sodium (136-145) mmol/L Potassium (3.5-5.1) mmol/L Chloride (98-107) mmol/L Carbon Dioxide (21-32) mmol/L Anion Gap (3-11) BUN (7-18) mg/dl Creatinine (0.6-1.2) mg/dl Est Cr Clr Drug Dosing ml/min Est GFR ( Amer) ml/min Est GFR (Non-Af Amer) ml/min BUN/Creatinine Ratio (10-20) Glucose (70-99) mg/dl Calcium (8.5-10.1) mg/dl Total Bilirubin (0.2-1) mg/dl AST (15-37) U/L ALT (12-78) U/L Alkaline Phosphatase (45-117) U/L Total Protein (6.4-8.2) gm/dl Albumin (3.4-5.0) gm/dl Globulin (2.5-4.0) gm/dl Albumin/Globulin Ratio (0.9-2) Lipase (73-393) U/L COVID-19 Eval Order SARS-CoV-2 (PCR) NEGATIVE (Negative) Administered Medications Clonidine HCl (Clonidine Hcl 0.1 Mg/24 Hr Transderm Sys) 1 patch TD Q7D IRENE Stop: 01/20/21 21:08 Last Admin: 12/21/20 22:31 Dose: 1 patch Documented by: [id number] Miscellaneous (Remove Clonidine Patch) 1 ea N/A CQWK IRENE Stop: 01/20/21 21:08 Last Admin: 12/21/20 21:25 Dose: Not Given Documented by: [id number] Miscellaneous (Check Clonidine Patch Placement) 1 ea N/A QS IRENE Stop: 01/21/21 00:00 Last Admin: 12/22/20 17:13 Dose: 1 ea Documented by: [id number] Admin: 12/22/20 08:25 Dose: 1 ea Documented by: [id number] Admin: 12/22/20 00:15 Dose: 1 ea Documented by: [id number] Discontinued Medications Sodium Chloride (Nss 1000ml) 1,000 mls @ 80 mls/hr IV .[id number] IRENE Stop: 12/22/20 09:38 Last Infusion: 12/22/20 09:47 Dose: 0 mls/hr Documented by: [id number] Admin: 12/21/20 21:25 Dose: 80 mls/hr Documented by: [id number] Discharge Plan Visit Data Chief Complaint: GI Assessment Stated Complaint: CANT EAT, OBSTRUCTED BOWEL- DOC REF ED Provider: Daryn Aguirre Discharge Problem: SBO (small bowel obstruction), CKD (chronic kidney disease), stage III Patient Disposition: Admitted As Inpatient Discharge Instructions Interventions: ED Discharge Assessment Last Done: 12/21/20 20:45 Discharge Problem: CKD (chronic kidney disease), stage III Qualifiers: Chronic kidney disease stage 3 subtype: unspecified whether 3a or 3b Qualified Code(s): N18.30 - Chronic kidney disease, stage 3 unspecified
[2020-12-23] MEDS: CHECK CLONIDINE PATCH PLACEMENT SCH ×3 (01:05→16:13)
[2020-12-23 06:49] LABS: BUN Creatinine Ratio 29.4 (10-20); Creatinine Clr Calc Pharmacy 40.2 ml/min; Est GFR (Non-African American) 59.5 ml/min; Magnesium 1.8 mg/dl (1.8-2.4); Potassium 3.9 mmol/L (3.5-5.1)
[2020-12-23 06:50] LABS: Phosphorus 2.6 mg/dl (2.5-4.9)
--- NOTE | 2020-12-23 10:54 | Surgery Progress Note ---
Date of Service December 23, 2020 Assessment & Plan (1) SBO (small bowel obstruction): Plan: 80 yo female with 1 month history of intermittent vomiting, decreased appetite, early satiety, and weight loss. Outpatient CT scan showing history of Billroth II procedure with distended stomach and distended efferent loop of bowel. AXR following ng tube placement shows resolution of bowel dilation. Abdomen remains benign. Now with return of bowel function. Plan: Improved. OK to advance diet (clears and then advance as tolerated). If tolerates diet, can be discharged. If persistent/ recurrent symptoms in future, consider SBFT. Admission and Anticipated Discharge Date Admission Date: December 21, 2020 Subjective NG tube pulled out accidentally overnight. Feels well with no abdominal pain or nausea. She is hungry and thirsty. Tearful about possibly needing surgery to prevent this from occurring again. Review of Systems Review of Systems: All systems reviewed & are unremarkable except as noted in HPI & below Physical Exam Constitutional: well developed and well nourished; no acute distress Respiratory: no respiratory distress and no labored breathing Gastrointestinal (Abdomen): Inspection/Auscultation: abdomen normal to inspection, normal bowel sounds and + abdominal surgical scar (cholecystectomy s car RUQ, upper midline scar); abdomen not distended Percussion/Palpation: abdomen soft and + hernia (supraumbilical , reducible, defect measures about 2 cm); abdomen nontender Neurologic: awake; no focal motor deficits Psychiatric: Orientation: alert and oriented x 3 Results & Data ([facility]) Vital Signs (Past 12 Hours) Vital Signs Temp Pulse Pulse Resp BP Pulse Ox 12/23/20 07:49 37.1 C 88 18 150/82 H 97 12/23/20 07:10 87 12/23/20 03:03 37.2 C 86 18 125/76 94 12/23/20 01:00 85 Laboratory Results Abnormal lab results 12/23/20 Range/Units 05:53 Chloride 112 H (98-107) mmol/L BUN 27 H (7-18) mg/dl BUN/Creatinine Ratio 29.4 H (10-20) Calcium 8.0 L (8.5-10.1) mg/dl Diagnostic Findings KUB shows resolution of dilated loops of bowel
--- NOTE | 2020-12-23 15:14 | Hospitalist Progress Note ---
Date of Service December 23, 2020 Assessment & Plan (1) SBO (small bowel obstruction): Plan: Pt is 80 y/o F with PMH HTN, dyslipidemia, LE edema, CKD III, gout presented to ER with complaint of intermittent nausea and vomiting x1 month. Outpatient CT abdomen pelvis with oral contrast Impression: 1. Postsurgical changes of Billroth II procedure. The stomach is distended with fluid and food debris. There is dilation of the efferent limb of the small bowel with focal transition point as the small bowel crosses anterior to the aorta and posterior to the stomach. This likely represents a partial obstruction. 2. 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 3. Partially visualized calcified mass arising from the coccyx incompletely evaluated on this exam. Dedicated pelvic radiographs are recommended for further evaluation KUB showed the tip of the nasogastric tube projects over the distal body of the stomach. Ingested contents within the stomach are incidentally noted. Visualized bowel gas pattern is normal. Surgery on board recommended to continue ng decompression until tomorrow. NGT tube was clamped and accidentally removed yesterday Abdominal is soft today Started on clear liquid diet today and will advance in am if tolerated Will need outpatient follow-up with Surgeon in [place] if her symptoms persists given her Billroth II procedure and complex abdominal history (2) Hypertension: Plan: On clonidine patch, will transition to PO if able to tolerate clear liquid diet Continue to hold lisinopril, Lasix (3) CKD (chronic kidney disease), stage III: Plan: Creatinine 1.09, Baseline Cr: ~1.6 Monitor renal functions, avoid nephrotoxic agents when possible (4) Leg edema: Plan: Chronic BLE edema. Denies any worsening Lasix on hold, Will plan to resume Lasix in am Will monitor closely (5) Gout: Plan: Will resume in allopurinol if able to tolerate diet DVT Prophylaxis SCDs Full Code Admission and Anticipated Discharge Date Admission Date: December 21, 2020 Subjective Pt was seen and examined for follow of SBO Lying in bed with no distress NGT was clamped yesterday and NGT was removed accidentally She said that she is not having any abdominal pain and feels better Denies any chest pain, palpitation, dizziness and SOB Physical Exam Physical Exam: General- No acute distress Head- atraumatic Eyes- PERRL, EOMI, ENT- NG tube in place Neck- supple, no JVD Lungs- clear to auscultation Heart- regular rhythm; no murmur Abdomen- abdomen soft and + hernia, hypoactive bowel sound Extremities- no calf tenderness Neuro- alert, oriented, PERRL, EOMI; no facial palsy; no dysarthria Skin- warm & dry Results & Data Results & Data ([facility]) Vital Signs (Past 12 Hours) Vital Signs Temp Pulse Pulse Resp BP Pulse Ox 12/23/20 11:53 36.7 C 87 18 149/86 H 96 12/23/20 07:49 37.1 C 88 18 150/82 H 97 12/23/20 07:10 87 12/23/20 03:03 37.2 C 86 18 125/76 94 (1) CKD (chronic kidney disease), stage III Chronic kidney disease stage 3 subtype: unspecified whether 3a or 3b Qualified Code(s): N18.30 - Chronic kidney disease, stage 3 unspecified
[2020-12-24] MEDS: CHECK CLONIDINE PATCH PLACEMENT SCH ×3 (01:03→15:31)
[2020-12-24 07:22] LABS: BUN Creatinine Ratio 24.1 (10-20); Creatinine Clr Calc Pharmacy 41.3 ml/min; Est GFR (African American) 70.9 ml/min; Est GFR (Non-African American) 61.2 ml/min; Magnesium 1.8 mg/dl (1.8-2.4); Potassium 3.7 mmol/L (3.5-5.1)
[2020-12-24] MEDS: cloNIDine HCL 0.1 MG TAB PO SCH (12:04)
[2020-12-24] MEDS: allopurinoL 100 MG TAB PO SCH (12:05)
--- NOTE | 2020-12-24 13:17 | Progress Note ---
Date of Service December 24, 2020 F/U SBO, pt is doing fine, no abdominal pain, no nausea, no vomiting, tolerated clear diet, Assessment & Plan (1) SBO (small bowel obstruction): Plan: 80 yo female with 1 month history of intermittent vomiting, decreased appetite, early satiety, and weight loss. Outpatient CT scan showing history of Billroth II procedure with distended stomach and distended efferent loop of bowel. AXR following ng tube placement shows resolution of bowel dilation. Abdomen remains benign. Now with return of bowel function. Plan: Improved. OK to advance diet (clears and then advance as tolerated). If tolerates diet, can be discharged. If persistent/ recurrent symptoms in future, consider SBFT. 12/24/2020 1:16PM. SBO resolved advance diet, possible go home tomorrow, Admission and Anticipated Discharge Date Admission Date: December 21, 2020 Supervising Physician Co-Signing Physician Notes Pt personally seen and examined. Agree with history and physical as per SUNIL Patterson. Symptoms have been going on for last month, minimal pain but intermittent nausea and vomiting. CT scan done today (personally reviewed) shows partial SBO of efferent limb. She had quite a complicated course following her Billroth 2 with fistula formation, poor wound healing. Agree with medical admission, ng decompression, bowel rest. Subjective Pt was seen and examined for follow of SBO Lying in bed with no distress NGT was clamped yesterday and NGT was removed accidentally She said that she is not having any abdominal pain and feels better Denies any chest pain, palpitation, dizziness and SOB Review of Systems Review of Systems: as per HPI Physical Exam Respiratory: normal respiratory effort, lungs clear to auscultation Chest (Breasts): Additional Comments: soft, NT, ND, BS + Musculoskeletal: no edema on legs Neurologic: patellar DTR's 2+ bilat, sensation intact Psychiatric: A+Ox3, euthymic affect Results & Data ([facility]) Vital Signs (Past 12 Hours) Vital Signs Temp Pulse Pulse Resp BP BP Pulse Ox 12/24/20 12:08 36.8 C 80 18 118/82 98 12/24/20 12:04 78 143/90 H 12/24/20 07:00 36.9 C 95 H 81 16 130/84 95 12/24/20 03:36 37.1 C 84 18 127/85 96
--- NOTE | 2020-12-24 15:19 | Hospitalist Progress Note ---
Date of Service December 24, 2020 Assessment & Plan (1) SBO (small bowel obstruction): Plan: Pt is 80 y/o F with PMH HTN, dyslipidemia, LE edema, CKD III, gout presented to ER with complaint of intermittent nausea and vomiting x1 month. Outpatient CT abdomen pelvis with oral contrast Impression: 1. Postsurgical changes of Billroth II procedure. The stomach is distended with fluid and food debris. There is dilation of the efferent limb of the small bowel with focal transition point as the small bowel crosses anterior to the aorta and posterior to the stomach. This likely represents a partial obstruction. 2. 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 3. Partially visualized calcified mass arising from the coccyx incompletely evaluated on this exam. Dedicated pelvic radiographs are recommended for further evaluation KUB showed the tip of the nasogastric tube projects over the distal body of the stomach. Ingested contents within the stomach are incidentally noted. Visualized bowel gas pattern is normal. Surgery on board recommended to continue ng decompression until tomorrow. NGT tube was clamped and accidentally removed yesterday Abdominal is soft and non tender Tolerated clear liquid diet early, will advance to low fiber soft diet ) Will need outpatient follow-up with Surgeon in [place] if her symptoms persists given her Billroth II procedure and complex abdominal history (2) Hypertension: Plan: Discontinued clonidine patch Transition to PO if able to tolerate clear liquid diet Continue to hold lisinopril, Lasix (3) CKD (chronic kidney disease), stage III: Plan: Doubt about Acute kidney failure since Baseline Cr: ~btw 1.4 to 1.6 for the last few months Creatinine 0.88 Monitor renal functions, avoid nephrotoxic agents when possible (4) Leg edema: Plan: Chronic BLE edema. Denies any worsening Lasix on hold, Will plan to resume Lasix in am Will monitor closely (5) Gout: Plan: Allopurinol resumed DVT Prophylaxis SCDs Full Code Disposition Will discharge home tomorrow Admission and Anticipated Discharge Date Admission Date: December 21, 2020 Subjective Pt was seen and examined for follow of SBO Lying in bed with no distress Pt said that she feels fine She tolerates full liquid diet She said that she is passing gas Denies any chest pain, palpitation, dizziness, SOB, N/V Physical Exam Physical Exam: General- No acute distress Head- atraumatic Eyes- PERRL, EOMI, ENT- NG tube in place Neck- supple, no JVD Lungs- clear to auscultation Heart- regular rhythm; no murmur Abdomen- abdomen soft , Nontender, +BS Extremities- no calf tenderness Neuro- alert, oriented, PERRL, EOMI; no facial palsy; no dysarthria Skin- warm & dry Results & Data Results & Data ([facility]) Vital Signs (Past 12 Hours) Vital Signs Temp Pulse Pulse Resp BP BP Pulse Ox 12/24/20 15:15 36.6 C 88 18 124/68 98 12/24/20 12:08 36.8 C 80 18 118/82 98 12/24/20 12:04 78 143/90 H 12/24/20 07:00 36.9 C 95 H 81 16 130/84 95 12/24/20 03:36 37.1 C 84 18 127/85 96 (1) CKD (chronic kidney disease), stage III Chronic kidney disease stage 3 subtype: unspecified whether 3a or 3b Qualified Code(s): N18.30 - Chronic kidney disease, stage 3 unspecified
[2020-12-25] MEDS: CHECK CLONIDINE PATCH PLACEMENT SCH ×2 (00:44→08:13)
[2020-12-25] MEDS: cloNIDine HCL 0.1 MG TAB PO SCH (08:11)
[2020-12-25] MEDS: allopurinoL 100 MG TAB PO SCH (08:11)
[2020-12-25] MEDS ORDERED: POTASSIUM CHLORIDE CRTAB 20 MEQ TABCR PO STA (08:37)
[2020-12-25] MEDS: FUROSEMIDE 20 MG in SYRINGE 0 ML IV ONE ×2 (09:35→10:14)
[2020-12-25] MEDS ORDERED: FUROSEMIDE 40 MG TAB PO ONE (10:13)
--- NOTE | 2020-12-25 14:33 | Discharge Summary ---
Date of Service December 25, 2020 Admission HPI Per Admitting Provider Pt is 80 y/o F with PMH HTN, dyslipidemia, LE edema, CKD III, gout presented to ER with complaint of intermittent nausea and vomiting x1 month. Reports episodes of vomiting after eating for the past month. Patient denies abdominal discomfort. Reports last bowel movement several days ago. Does not feel like she has been passing flatus. Denies fever, chills, hematemesis, diarrhea, melena, hematochezia, JASSO, dizziness, syncope, vision changes, neck pain, CP, SOB, orthopnea, palpitations, cough, sore throat, choking, otalgia, rhinorrhea, paresthesias, weakness, extremity weakness, extremity edema, rashes, urinary symptoms. Pt followed up with PCP had outpatient CT abdomen/pelvis today and was referred to ER. CT abdomen pelvis with oral contrast Impression: 1. Postsurgical changes of Billroth II procedure. The stomach is distended with fluid and food debris. There is dilation of the efferent limb of the small bowel with focal transition point as the small bowel crosses anterior to the aorta and posterior to the stomach. This likely represents a partial obstruction. 2. 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 3. Partially visualized calcified mass arising from the coccyx incompletely evaluated on this exam. Dedicated pelvic radiographs are recommended for further evaluation In ER patient afebrile, no leukocytosis. NG tube was placed and over 500 mL output initially. KUB after NG tube placement shows NG tube within distal body of stomach. Patient being admitted for further evaluation and treatment Admission Exam Per Admitting Provider General: no distress, WDWN Head: normocephalic, atraumatic Eyes: conjunctiva non-injected, anicteric ENT: hard of hearing, normal inspection external ears, nose, mucous membranes moist, +NG tube in place Neck: supple, trachea midline Lungs: clear, no respiratory distress, no wheezing/rhonchi/rales CV: RRR, no murmur Abd: hypoactive BS, distended, soft, non-tender Ext: no cyanosis, no calf tenderness, +edema BLE Neuro: A&O x 3, no focal deficits noted, normal affect Skin: warm, dry Principal Diagnosis 35 minutes Discharge Exam General- No acute distress Head- atraumatic Eyes- PERRL, EOMI, ENT- NG tube in place Neck- supple, no JVD Lungs- clear to auscultation Heart- regular rhythm; no murmur Abdomen- abdomen soft , Nontender, +BS Extremities- no calf tenderness Neuro- alert, oriented, PERRL, EOMI; no facial palsy; no dysarthria Skin- warm & dry Discharge Data Allergies Allergy/AdvReac Type Severity Reaction Status Date / Time No Known Allergies Allergy Unknown Verified 12/21/20 15:16 Consultations 12/21/20 15:30 Consult General Surgery Stat 12/21/20 15:50 ED Decision to Admit Stat 12/21/20 21:09 Consult General Surgery Routine Ordered Studies KUB CLINICAL HISTORY: assess NG tube placement COMPARISON STUDY: CT of the abdomen and pelvis September 02, 2020. FINDINGS: The tip of the nasogastric tube projects over the distal body of the stomach. Ingested contents within the stomach are incidentally noted. Visualized bowel gas pattern is normal. IMPRESSION: Tip of nasogastric tube within the distal body of the stomach. ACT 112: Negative or not required by law. Electronically signed by: Dick Lackey M.D. 12/21/2020 5:15 PM Dictated: 12/21/201713Transcribed: 12/21/201713 KUB HISTORY: Small bowel obstruction. Follow-up. COMPARISON: KUB 12/21/2020. FINDINGS: Nasogastric tube terminates in the stomach. This remains unchanged. Residual contrast within the colon. There is moderate well-formed stool seen within the colon and rectum. No dilated loops of small bowel identified at this time. The lung bases are clear. No renal calculi. No ureteral calculi. No pneumoperitoneum or pneumatosis. IMPRESSION: 1. Nasogastric tube terminates in the stomach. 2. No dilated loops of bowel. ACT 112: Negative or not required by law. Electronically signed by: Tyler Kaplan M.D. 12/22/2020 8:34 AM Dictated: 12/22/20 08Transcribed: 12/22/20832 Hospital Course (1) SBO (small bowel obstruction): Pt is 80 y/o F with PMH HTN, dyslipidemia, LE edema, CKD III, gout presented to ER with complaint of intermittent nausea and vomiting x1 month. Outpatient CT abdomen pelvis with oral contrast Impression: 1. Postsurgical changes of Billroth II procedure. The stomach is distended with fluid and food debris. There is dilation of the efferent limb of the small bowel with focal transition point as the small bowel crosses anterior to the aorta and posterior to the stomach. This likely represents a partial obstruction. 2. 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 3. Partially visualized calcified mass arising from the coccyx incompletely evaluated on this exam. Dedicated pelvic radiographs are recommended for f urther evaluation KUB showed the tip of the nasogastric tube projects over the distal body of the stomach. Ingested contents within the stomach are incidentally noted. Visualized bowel gas pattern is normal. Surgery on board recommended to continue ng decompression until tomorrow. NGT tube was clamped and accidentally removed yesterday Abdominal is soft and non tender Tolerated clear liquid diet early, will advance to low fiber soft diet Tolerated Low fiber soft diet Will need outpatient follow-up with Surgeon in [place] if her symptoms persists given her Billroth II procedure and complex abdominal history (2) Hypertension: Discontinued clonidine patch Transition to PO if able to tolerate clear liquid diet Continue to hold lisinopril, Lasix (3) CKD (chronic kidney disease), stage III: Doubt about Acute kidney failure since Baseline Cr: ~btw 1.4 to 1.6 for the last few months Creatinine 0.88 Monitor renal functions, avoid nephrotoxic agents when possible (4) Leg edema: Chronic BLE edema. Denies any worsening Lasix on hold, Will plan to resume Lasix in am Will monitor closely (5) Gout: Allopurinol resumed DVT Prophylaxis SCDs Full Code Disposition Will discharge home Total Time Total Time Spent Total Time Spent (In Minutes): 35 minutes Discharge Plan Discharge Items Patient Disposition: Home - Self-Care Reason For Visit: SBO Discharge Diagnosis: SBO (small bowel obstruction): Hypertension: CKD (chronic kidney disease), stage III: Leg edema: Gout: Activity: Resume your previous activity Non-emergency contact: Primary Care Provider Call non-emergency contact if: you have any medication questions Follow-up/Referrals: Daniel Love DO [Primary Care Provider] - (Date & Time 12/31/2020 2:00 PM Provider Daniel Love DO Department [facility] ) Diet: Low Fiber Diet Texture: Easy to Chew Addtl Attending Provider Instructions: Follow up with your primary care provider Dr. Love on 12/31/2020 at 2:00 PM at the [facility] Continue low fiber and soft food for now Fall precaution Pending Studies at Discharge: No Stand-Alone Forms: My [facility], Smoking Cessation Medications and DC Order Prescriptions: Continued clonidine HCl 0.1 mg Tablet 0.1 mg PO QAM RF: 0 allopurinol 100 mg Tablet 100 mg PO QAM RF: 0 furosemide 20 mg Tablet 20 mg PO QAM PRN (Reason: swelling) RF: 0 lisinopril 40 mg Tablet 40 mg PO QAM RF: 0 multivitamin Tablet 1 tab PO QAM RF: 0 Ocuvite Adult 50 Plus 250-5-1 mg Capsule 1 cap PO QAM RF: 0 Discharge Orders: Discharge Order (Routine); Ordered 12/25/20 Ordered By: Jovanna Tate Admission Data Admit Date/Time: 12/21/20 16:21 Attending Provider: Jovanna Tate Admit Provider: Jovanna Tate Primary Care Provider: Daniel Love Other Providers: Luz Obregon ; Shravan Muñoz
== END 2020-12-25 15:06 | disposition home or self-care (01) | DRG 390 ==
LOC: ED 12:10 → 2N 16:21

== ENCOUNTER 2021-02-27 20:50 | Inpatient (IN) ==
[2021-02-27] MEDS ORDERED: SODIUM CHLORIDE 0.9% 1000ML 1,000 ML IV ONE ×2 (20:57→22:28)
[2021-02-27] MEDS ORDERED: STAT IV Infusion **Titration per Protocol STA ×2 (20:57→23:51)
[2021-02-27] MEDS ORDERED: dilTIAZem HCL 125 MG in DEXTROSE 5% 100 ML IV SCH (21:00)
--- NOTE | 2021-02-27 21:23 | Emergency Department Note ---
History of Present Illness General Chief complaint: Unresponsive Stated complaint: UNRESPONSIVE Time Seen by Provider: 02/27/21 20:57 Source: EMS Mode of arrival: EMS Limitations: altered mental status History of Present Illness Provider complaint: Unresponsive episode This is an 80-year-old female who presents via EMS for an unresponsive episode. Patient is from [facility] and staff there stated they found her in the bathroom, unresponsive. No evidence of trauma. They called 911 and when EMS arrived patient was tachycardic, hypotensive, and hypoxic. Concern based on abnormal EKGs for sinus tach versus A. fib. No known history based on limited paperwork that was sent with EMS. Patient was placed on oxygen via nonrebreather and oxygen saturations did improve and patient began to be slightly more alert by arrival here. Patient was able to answer some simple questions on arrival here, blood pressure was improved as EMS had started IV fluids. Pt seen during a time of high acuity and national emergency pandemic while wearing PPE. Home Medications Medication Instructions Recorded Confirmed Type allopurinol 100 mg tablet 100 mg PO QAM 05/04/18 02/27/21 History clonidine HCl 0.1 mg tablet 0.1 mg PO QAM 05/04/18 02/27/21 History vit C,E,zinc,copper-[id number] 250 1 cap PO QAM 09/02/20 02/27/21 History mg-lutein 5 mg-zeaxanthin 1 mg capsule (Ocuvite Adult 50 Plus) ascorbic acid (vitamin C) 1,000 mg 1 g PO QAM 02/27/21 02/27/21 History tablet (Vitamin C) cyanocobalamin (vitamin B-12) 500 500 mcg PO QAM 02/27/21 02/27/21 History mcg tablet (Vitamin B-12) melatonin 3 mg tablet 3 mg PO HS PRN 02/27/21 02/27/21 History metoclopramide HCl 5 mg tablet 5 mg PO ACHS 02/27/21 02/27/21 History mirtazapine 15 mg tablet 15 mg PO HS 02/27/21 02/27/21 History omeprazole 40 mg capsule,delayed 40 mg PO DAILYBB 02/27/21 02/27/21 History release ondansetron HCl 4 mg tablet 4 mg PO Q6H PRN 02/27/21 02/27/21 History polyethylene glycol 3350 17 gram 17 g PO BID 02/27/21 02/27/21 History oral powder packet (Miralax) Allergies Allergy/AdvReac Type Severity Reaction Status Date / Time No Known Allergies Allergy Unknown Verified 02/27/21 21:38 Past Med/Surg History Medical History CKD (chronic kidney disease), stage III Dyslipidemia GI bleed Gout Hypertension Leg edema Poor historian Surgical History History of abdominal surgery R/T GI BLEED History of [place] II operation History of cataract surgery RT History of cholecystectomy History of tooth extraction History of total knee replacement BL Family History (Updated 12/21/20 @ 20:29 by Carolina Cornell PA-C) Father Cancer Brother Heart disease Mother Hypertension Social History Smoking Status: Never smoker Second Hand Exposure: No; Hx Alcohol Use: No Hx Substance Use: No Preferred Language: Burkinan Communication Ability: Effective Slicing Machine Feeder Required: No Beliefs That Will Affect Care: None marital status: / Current Living Situation: Alone current occupational status: retired Feels Safe at Home: Yes Assistive Devices: None and Walker Review of Systems A total of 10 systems reviewed and were otherwise negative All systems reviewed & are unremarkable except as noted in HPI & below Physical Exam Vital Signs Vital Signs - 24 hr 02/27/21 20:44 02/27/21 20:55 02/27/21 21:12 Temperature 37.1 C Temperature Source Rectal Pulse Rate 154 H 162 H Pulse Rate [Forehead] Pulse Rate from SpO2 Sensor 74 Pulse Rhythm [Forehead] Respiratory Rate 24 24 Respiratory Effort / Characteristics Spontaneous Respiratory Depth Blood Pressure 154/46 H 154/46 H Blood Pressure [Left Arm] Blood Pressure Mean 82 82 Blood Pressure Mean [Left Arm] Blood Pressure Position Lying Blood Pressure Position [Left Arm] Pulse Oximetry 97 100 97 Oxygen Delivery Method Non-rebreather Non-rebreather Non-rebreather Oxygen Flow Rate 15 15 Sepsis Recent Fever Within 48 Hours No Sepsis New/Unexplained Change in Mental Status No Sepsis Action Taken by Nursing Physician Notified Oxygen Flow Rate - Titration Pulse Oximetry Post Tiitration 02/27/21 21:17 02/27/21 21:31 02/27/21 21:46 Temperature Temperature Source Pulse Rate 141 H 133 H 146 H Pulse Rate [Forehead] Pulse Rate from SpO2 Sensor 76 97 H Pulse Rhythm [Forehead] Respiratory Rate 22 24 21 Respiratory Effort / Characteristics Respiratory Depth Blood Pressure 95/74 L 93/53 L 101/71 Blood Pressure [Left Arm] Blood Pressure Mean 81 66 81 Blood Pressure Mean [Left Arm] Blood Pressure Position Blood Pressure Position [Left Arm] Pulse Oximetry 100 99 95 Oxygen Delivery Method Non-rebreather Non-rebreather Non-rebreather Oxygen Flow Rate 15 15 15 Sepsis Recent Fever Within 48 Hours Sepsis New/Unexplained Change in Mental Status Sepsis Action Taken by Nursing Oxygen Flow Rate - Titration Pulse Oximetry Post Tiitration 02/27/21 22:01 02/27/21 22:16 02/27/21 22:20 Temperature Temperature Source Pulse Rate 129 H 124 H 126 H Pulse Rate [Forehead] Pulse Rate from SpO2 Sensor Pulse Rhythm [Forehead] Respiratory Rate 19 19 19 Respiratory Effort / Characteristics Respiratory Depth Blood Pressure 80/62 L Blood Pressure [Left Arm] Blood Pressure Mean 68 Blood Pressure Mean [Left Arm] Blood Pressure Position Blood Pressure Position [Left Arm] Pulse Oximetry 97 100 100 Oxygen Delivery Method Non-rebreather Non-rebreather Non-rebreather Oxygen Flow Rate 15 15 15 Sepsis Recent Fever Within 48 Hours Sepsis New/Unexplained Change in Mental Status Sepsis Action Taken by Nursing Oxygen Flow Rate - Titration Pulse Oximetry Post Tiitration 02/27/21 22:28 02/27/21 22:31 02/27/21 22:50 Temperature Temperature Source Pulse Rate 151 H 127 H Pulse Rate [Forehead] 131 H Pulse Rate from SpO2 Sensor 62 Pulse Rhythm [Forehead] Irregular Respiratory Rate 15 18 18 Respiratory Effort / Characteristics Spontaneous Respiratory Depth Blood Pressure 97/56 L Blood Pressure [Left Arm] 99/57 L Blood Pressure Mean 69 Blood Pressure Mean [Left Arm] 71 Blood Pressure Position Blood Pressure Position [Left Arm] Lying Pulse Oximetry 100 100 100 Oxygen Delivery Method Nasal Cannula Nasal Cannula Nasal Cannula Oxygen Flow Rate 6 6 6 Sepsis Recent Fever Within 48 Hours Sepsis New/Unexplained Change in Mental Status Sepsis Action Taken by Nursing Oxygen Flow Rate - Titration Pulse Oximetry Post Tiitration 02/27/21 23:01 02/27/21 23:16 02/27/21 23:24 Temperature Temperature Source Pulse Rate 126 H 135 H Pulse Rate [Forehead] Pulse Rate from SpO2 Sensor 65 Pulse Rhythm [Forehead] Respiratory Rate 22 19 Respiratory Effort / Characteristics Respiratory Depth Blood Pressure 125/57 L 92/43 L Blood Pressure [Left Arm] Blood Pressure Mean 79 59 Blood Pressure Mean [Left Arm] Blood Pressure Position Blood Pressure Position [Left Arm] Pulse Oximetry 97 100 100 Oxygen Delivery Method Nasal Cannula Nasal Cannula Oxygen Flow Rate 6 6 6 Sepsis Recent Fever Within 48 Hours Sepsis New/Unexplained Change in Mental Status Sepsis Action Taken by Nursing Oxygen Flow Rate - Titration 4 Pulse Oximetry Post Tiitration 97 02/27/21 23:26 02/27/21 23:30 02/27/21 23:37 Temperature Temperature Source Pulse Rate 119 H 116 H Pulse Rate [Forehead] 118 H Pulse Rate from SpO2 Sensor Pulse Rhythm [Forehead] Respiratory Rate 20 19 18 Respiratory Effort / Characteristics Non-Labored Spontaneous Respiratory Depth Normal Blood Pressure 87/60 L 77/50 L Blood Pressure [Left Arm] 95/63 L Blood Pressure Mean 69 59 Blood Pressure Mean [Left Arm] 73 Blood Pressure Position Blood Pressure Position [Left Arm] Pulse Oximetry 96 100 100 Oxygen Delivery Method Nasal Cannula Nasal Cannula Nasal Cannula Oxygen Flow Rate 4 4 4 Sepsis Recent Fever Within 48 Hours Sepsis New/Unexplained Change in Mental Status Sepsis Action Taken by Nursing Oxygen Flow Rate - Titration Pulse Oximetry Post Tiitration 02/27/21 23:45 02/28/21 00:01 02/28/21 00:16 Temperature Temperature Source Pulse Rate 123 H 119 H 119 H Pulse Rate [Forehead] Pulse Rate from SpO2 Sensor 71 Pulse Rhythm [Forehead] Respiratory Rate 17 17 17 Respiratory Effort / Characteristics Respiratory Depth Blood Pressure 95/58 L 102/61 Blood Pressure [Left Arm] Blood Pressure Mean 70 86 74 Blood Pressure Mean [Left Arm] Blood Pressure Position Blood Pressure Position [Left Arm] Pulse Oximetry 100 95 95 Oxygen Delivery Method Nasal Cannula Nasal Cannula Oxygen Flow Rate 4 4 Sepsis Recent Fever Within 48 Hours Sepsis New/Unexplained Change in Mental Status Sepsis Action Taken by Nursing Oxygen Flow Rate - Titration Pulse Oximetry Post Tiitration GENERAL: alert, ill appearing, well nourished, no distress, non-toxic EYE EXAM: normal conjunctiva, PERRL and EOM's grossly intact OROPHARYNX: no exudate, no erythema, lips, buccal mucosa, and tongue normal and mucous membranes are dry, no mucocutaneous lesions NECK: supple, no nuchal rigidity, no adenopathy, non-tender LUNGS: Clear to auscultation. Normal chest wall mechanics, no w/r/r HEART: no murmurs, S1 normal and S2 normal, no chest wall tenderness with percussion ABDOMEN: abdomen soft, non-tender, normo-active bowel sounds, no masses, no rebound or guarding. BACK: Back is symmetrical on inspection and there is no deformity, no midline tenderness, no CVA tenderness. SKIN: no rashes and no bruising UPPER EXTREMITIES: upper extremities are grossly normal. FROM, nml pulses b/l. LOWER EXTREMITIES: No pitting edema. FROM, nml pulses b/l. Well-healed vertical midline incisions consistent with prior knee replacements. NEURO EXAM: Normal sensorium, cranial nerves II-XII grossly intact, normal speech, no gross weakness of arms, no gross weakness of legs. Gross sensation intact. Course Course 2106: Bp improved, HR elevated. 2114: BP holding, pt awake. 2119: Discussed with Pallavi Wooten, sister. States recent vomiting. Prior admit in [place] for bowel obstruction. Remote hx of stomach surgery. Hx of htn, no other cardiac history. Advises to call the [id number], Hanane, who is the POA. 2124: Left message for the sister in law/POA. 2129: Heart rate slightly improved on Cardizem drip, and updated the patient. She seems more alert and awake, answering questions. Has no complaints at this time. States she does not recall feeling dizzy or lightheaded earlier today. 2144: Heart rate slowly improving on Cardizem drip. Second IV established. 2210: Patient's sister now at bedside. Patient's range of heart rate continues to improve. Blood pressures slightly low but stable, patient awake and alert. We will begin titrating down oxygen. Difficulty maintaining oxygen reading, pulse ox has been moved to various sites to try and improve this. 5: Pt HR continues to improve. Blood pressure borderline. Patient maintaining oxygen saturations down to 4 L/min on nasal cannula. Administered Medications Lactated Ringer's (Lr) 1,000 mls @ 250 mls/hr IV .Q4H STA Stop: 02/28/21 04:04 Last Admin: 02/28/21 00:21 Dose: 250 mls/hr Documented by: [id number] Discontinued Medications Sodium Chloride (Nss 1000ml) 1,000 mls @ 999 mls/hr IV .Q1H1M ONE Stop: 02/27/21 21:57 Last Infusion: 02/27/21 22:54 Dose: 0 mls/hr Documented by: [id number] Admin: 02/27/21 21:40 Dose: 999 mls/hr Documented by: [id number] Diltiazem HCl 125 mg/ Dextrose 125 mls @ 5 mls/hr IV .Q24H IRENE; Protocol Stop: 03/29/21 20:59 Last Titration: 02/28/21 00:21 Dose: 0 mg/hr, 0 mls/hr Documented by: [id number] Cosigned by: [id number] Titration: 02/27/21 23:35 Dose: 5 mg/hr, 5 mls/hr Documented by: [id number] Cosigned by: [id number] Titration: 02/27/21 23:07 Dose: 7.5 mg/hr, 7.5 mls/hr Documented by: [id number] Cosigned by: [id number] Admin: 02/27/21 21:20 Dose: 5 mg/hr, 5 mls/hr Documented by: [id number] Cosigned by: [id number] Sodium Chloride (Nss 1000ml) 1,000 mls @ 999 mls/hr IV .Q1H1M ONE Stop: 02/27/21 23:28 Last Infusion: 02/28/21 00:06 Dose: 0 mls/hr Documented by: [id number] Admin: 02/27/21 23:05 Dose: 999 mls/hr Documented by: [id number] Magnesium Sulfate/Dextrose (Magnesium Sulfate / D5w) 1 gm in 100 mls @ 100 mls/hr IV NOW STA Stop: 02/27/21 23:28 Last Infusion: 02/28/21 00:04 Dose: 0 mls/hr Documented by: [id number] Admin: 02/27/21 23:04 Dose: 100 mls/hr Documented by: [id number] Cefepime HCl (Maxipime) 2,000 mg in 20 mls @ 5 mls/min IV NOW STA; Protocol Stop: 02/27/21 23:39 Last Admin: 02/28/21 00:12 Dose: 5 mls/min Documented by: [id number] Amiodarone HCl/Dextrose (Nexterone / D5w) 150 mg in 100 mls @ 600 mls/hr IV NOW STA Stop: 02/28/21 00:00 Last Admin: 02/28/21 00:20 Dose: 600 mls/hr Documented by: [id number] Cosigned by: [id number] Miscellaneous (Stat Iv Infusion Titration Per Protocol) 1 ea N/A NOW STA Stop: 02/27/21 20:58 Last Admin: 02/27/21 23:06 Dose: Not Given Documented by: [id number] Critical Care Time Critical Care Time: Yes Total Critical Care Time: 62 Critical care of 62 min performed to assess and manage high likelihood of life- threatening unresponsive episode and dysrhythmia, involving labs and imaging performed with assessment to evaluate unresponsive episode and dysrhythmia diagnosis with frequent reassessment. This time includes bedside time, treatment discussions with patient/family/consultants, documentation time and excludes procedure time. Medical Decision Making Differential Diagnosis Differential diagnoses includes but is not limited to toxic, metabolic, infectious, traumatic, cardiac, neurologic, hematologic, psychiatric and inflammatory etiologies. Medical Records Attestation: I reviewed the patient's medical records. Home Medications Current Medication List: was personally reviewed by me Laboratory Data Attestation: I reviewed the patient's lab results. Result diagrams: 02/27/21 21:35 02/27/21 21:35 Lab Results 02/27/21 02/27/21 02/27/21 Range/Units 21:35 21:35 21:36 WBC 15.90 H (4.8-10.8) K/uL RBC 3.53 L (4.2-5.4) M/uL Hgb 11.8 L (12.0-16.0) g/dL Hct 35.1 L (37-47) % MCV 99.4 (80-100) fL MCH 33.4 (25-34) pg MCHC 33.6 (32-36) g/dL RDW Std Deviation 61.5 H (36.4-46.3) fL RDW Coeff of Robert 16.9 H (11.5-14.5) % Plt Count 114 L (130-400) K/uL MPV 9.6 (7.4-10.4) fL Immature Gran % (Auto) 0.9 % Neut % (Auto) 89.1 % Lymph % (Auto) 4.5 % [place] % (Auto) 5.4 % Eos % (Auto) 0.0 % Baso % (Auto) 0.1 % Neut # (Auto) 14.16 H (1.4-6.5) K/uL Lymph # (Auto) 0.72 L (1.2-3.4) K/uL [place] # (Auto) 0.86 H (0.11-0.59) K/uL Eos # (Auto) 0.00 (0-0.5) K/uL Baso # (Auto) 0.01 (0-0.2) K/uL Immature Gran # (Auto) 0.15 H (0.00-0.02) K/uL Polychromasia 1+ Echinocytes 2+ Sodium 139 (136-145) mmol/L Potassium 4.0 (3.5-5.1) mmol/L Chloride 108 H (98-107) mmol/L Carbon Dioxide 17 L (21-32) mmol/L Anion Gap 14.0 H (3-11) BUN 85 H (7-18) mg/dl Creatinine 2.37 H (0.6-1.2) mg/dl Est Cr Clr Drug Dosing 16.1 ml/min Est GFR ( Amer) 21.4 ml/min Est GFR (Non-Af Amer) 18.5 ml/min BUN/Creatinine Ratio 35.9 H (10-20) Glucose 133 H (70-99) mg/dl Calcium 7.4 L (8.5-10.1) mg/dl Magnesium 1.6 L (1.8-2.4) mg/dl Total Bilirubin 0.7 (0.2-1) mg/dl AST 28 (15-37) U/L ALT 25 (12-78) U/L Alkaline Phosphatase 98 (45-117) U/L Troponin I 0.243 H* (0-0.045) ng/ml NT-Pro-B Natriuret Pep 9221 H (0-1800) pg/ml Total Protein 4.0 L (6.4-8.2) gm/dl Albumin 1.3 L (3.4-5.0) gm/dl Globulin 2.7 (2.5-4.0) gm/dl Albumin/Globulin Ratio 0.5 L (0.9-2) Lipase 40 L (73-393) U/L Procalcitonin 1.12 H (0-0.5) ng/ml TSH 2.330 (0.300-4.500) uIu/ml COVID-19 Eval Order SARS-CoV-2 (PCR) (Negative) 02/27/21 02/27/21 Range/Units 23:15 23:15 WBC (4.8-10.8) K/uL RBC (4.2-5.4) M/uL Hgb (12.0-16.0) g/dL Hct (37-47) % MCV (80-100) fL MCH (25-34) pg MCHC (32-36) g/dL RDW Std Deviation (36.4-46.3) fL RDW Coeff of Robert (11.5-14.5) % Plt Count (130-400) K/uL MPV (7.4-10.4) fL Immature Gran % (Auto) % Neut % (Auto) % Lymph % (Auto) % [place] % (Auto) % Eos % (Auto) % Baso % (Auto) % Neut # (Auto) (1.4-6.5) K/uL Lymph # (Auto) (1.2-3.4) K/uL [place] # (Auto) (0.11-0.59) K/uL Eos # (Auto) (0-0.5) K/uL Baso # (Auto) (0-0.2) K/uL Immature Gran # (Auto) (0.00-0.02) K/uL Polychromasia Echinocytes Sodium (136-145) mmol/L Potassium (3.5-5.1) mmol/L Chloride (98-107) mmol/L Carbon Dioxide (21-32) mmol/L Anion Gap (3-11) BUN (7-18) mg/dl Creatinine (0.6-1.2) mg/dl Est Cr Clr Drug Dosing ml/min Est GFR ( Amer) ml/min Est GFR (Non-Af Amer) ml/min BUN/Creatinine Ratio (10-20) Glucose (70-99) mg/dl Calcium (8.5-10.1) mg/dl Magnesium (1.8-2.4) mg/dl Total Bilirubin (0.2-1) mg/dl AST (15-37) U/L ALT (12-78) U/L Alkaline Phosphatase (45-117) U/L Troponin I (0-0.045) ng/ml NT-Pro-B Natriuret Pep (0-1800) pg/ml Total Protein (6.4-8.2) gm/dl Albumin (3.4-5.0) gm/dl Globulin (2.5-4.0) gm/dl Albumin/Globulin Ratio (0.9-2) Lipase (73-393) U/L Procalcitonin (0-0.5) ng/ml TSH (0.300-4.500) uIu/ml COVID-19 Eval Order Covid19 at [facility] SARS-CoV-2 (PCR) NEGATIVE (Negative) Imaging Data My Impression: X-ray: I interpreted the following studies. Chest: A single view study of the chest was reviewed and was negative for cardiomegaly, focal infiltrate, effusion, pulmonary edema, or wide mediastinum. Radiologist's Impression: CT head: No ICH, mass-effect or edema. No skull fracture. Involutional changes with small vessel disease. 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 Radiologist: Yumiko Strange MD ECG Data Attestation: I personally reviewed and interpreted this ECG as follows: Indication: + syncope Rate (beats per minute): 148 Rhythm: + atrial fibrillation ECG Intervals/blocks: + Normal QRS and + Normal QT ECG [place]: + Left axis deviation ECG ST segments: + Nonspecific ST abnormalities MDM Narrative This is an ill-appearing 80-year-old female who is brought in by EMS following an unresponsive episode. Patient initially found to be hypotensive, hypoxic, tachycardic. On arrival here patient was improving per EMS report, although found to be in atrial fibrillation with RVR. Initial blood pressure was stable, labs drawn and sent, chest x-ray performed, patient started on Cardene drip only. Bolus not given due to initial report by EMS of hypotension. Patient was started on IV fluids, as staff they reported to them she typically does not eat or drink much, patient did appear clinically dry. There was no reported trauma as patient remained seated on the toilet during this entire episode. Patient here complained of pain or dizziness. Patient denied any cardiac history other than high blood pressure. I did contact staff at [facility] as well as the patient's sister. I left a message for her [id number] in addition. I did review patient's EMR from prior visits here. Patient's blood pressure did remain stable while she was rehydrated, and Cardizem did seem to be helping her overall range of heart rate. Patient continued to report feeling improved. I discussed with patient risk of possible need for electrocardioversion and she stated she would not want this done. Patient's labs continue to return and patient found to have a leukocytosis of 15, at that point a procalcitonin was also added. Patient found to be in TIFFANY with a new elevated creatinine greater than 2 compared to her prior baseline of 1.6. Given this finding, patient's Cardizem cannot be converted to digoxin for better rate control and blood pressure stabilization. Patient's blood pressures continued to hover in the upper 90s and low 100s. After additional IV fluids patient's Cardizem was cautiously increased to 7.5. Patient's magnesium was also repleted. Patient was reexamined multiple times and denied any new or evolving symptoms. Patient sister eventually came to bedside and she was updated also. Case discussed with hospitalist for additional evaluation and management. Patient was able to be weaned down off to the 15 L on a nonrebreather that EMS had initially put her on down to 4 L/min on nasal cannula at time of my discussion with the hospitalist. UA was still pending at that time. Blood cultures and empiric cefepime were added after procalcitonin resulted elevated also. An order was placed for continuous cardiac monitoring. The monitor shows a rate of _136_ with _atrial fibrillation_ rhythm. Impression & Plan Unresponsive episode, Atrial fibrillation with RVR, TIFFANY (acute kidney injury), Hypomagnesemia Discharge Plan Visit Data Chief Complaint: Unresponsive Stated Complaint: UNRESPONSIVE ED Provider: Brenda Caruso Discharge Problem: Unresponsive episode, Atrial fibrillation with RVR, TIFFANY (acute kidney injury), Hypomagnesemia Forms Stand Alone Forms: My [facility] Prescriptions Prescriptions: No Action clonidine HCl 0.1 mg Tablet 0.1 mg PO QAM RF: 0 allopurinol 100 mg Tablet 100 mg PO QAM RF: 0 ascorbic acid (vitamin C) [Vitamin C] 1,000 mg Tablet 1 g PO QAM RF: 0 polyethylene glycol 3350 [Miralax] 17 gram powder in packet 17 g PO BID RF: 0 ondansetron HCl 4 mg tablet 4 mg PO Q6H PRN (Reason: Nausea) RF: 0 melatonin 3 mg Tablet 3 mg PO HS PRN (Reason: Insomnia) RF: 0 omeprazole 40 mg capsule,delayed release(DR/EC) 40 mg PO DAILYBB RF: 0 metoclopramide HCl 5 mg tablet 5 mg PO ACHS RF: 0 cyanocobalamin (vitamin B-12) [Vitamin B-12] 500 mcg Tablet 500 mcg PO QAM RF: 0 mirtazapine 15 mg tablet 15 mg PO HS RF: 0 Ocuvite Adult 50 Plus 250-5-1 mg Capsule 1 cap PO QAM RF: 0 Referrals Referrals: Daniel Love DO [Primary Care Provider] -
[2021-02-27 21:56] LABS: Hematocrit (blood only) 35.1 % (37-47); Hemoglobin 11.8 g/dL (12.0-16.0); Mean Corpuscular Hemoglobin 33.4 pg (25-34); Mean Corpuscular Hgb Conc 33.6 g/dL (32-36); Mean Corpuscular Volume 99.4 fL (80-100); Mean Platelet Volume 9.6 fL (7.4-10.4); Platelet Count 114 K/uL (130-400); RDW Coefficient of Variation 16.9 % (11.5-14.5); RDW Standard Deviation 61.5 fL (36.4-46.3); Red Blood Count 3.53 M/uL (4.2-5.4)
[2021-02-27 22:06] LABS: Albumin Level 1.3 gm/dl (3.4-5.0); BUN Creatinine Ratio 35.9 (10-20); Calcium 7.4 mg/dl (8.5-10.1); Creatinine Clr Calc Pharmacy 16.1 ml/min; Est GFR (African American) 21.4 ml/min; Est GFR (Non-African American) 18.5 ml/min; Magnesium 1.6 mg/dl (1.8-2.4)
[2021-02-27 22:24] LABS: Albumin Globulin Ratio 0.5 (0.9-2); Bilirubin,Total 0.7 mg/dl (0.2-1); Globulin 2.7 gm/dl (2.5-4.0); Thyroid Stimulating Hormone 2.33 uIu/ml (0.300-4.500); Troponin I 0.243 ng/ml (0-0.045)
[2021-02-27] MEDS ORDERED: MAGNESIUM SULFATE / D5W 1 GM/100 ML BAG IV STA (22:29)
[2021-02-27 22:43] LABS: Basophils # (auto) 0.01 K/uL (0-0.2); Basophils % (auto) 0.1 %; Echinocytes 2+; Immature Granulocytes # (auto) 0.15 K/uL (0.00-0.02); Immature Granulocytes % (auto) 0.9 %; Lymphocytes # (auto) 0.72 K/uL (1.2-3.4); Lymphocytes % (auto) 4.5 %; Monocytes # (auto) 0.86 K/uL (0.11-0.59); Monocytes % (auto) 5.4 %; Neutrophils # (auto) 14.16 K/uL (1.4-6.5); Neutrophils % (auto) 89.1 %; Polychromasia 1+
[2021-02-27] MEDS ORDERED: CEFEPIME 2,000 MG/20 ML VIAL IV STA (23:36)
[2021-02-27] MEDS ORDERED: AMIODARONE IV BOLUS & DRIP IV STA (23:51)
[2021-02-27] MEDS ORDERED: 0.2 MICRON FILTER SET 1 EA IV ONE (23:51)
[2021-02-27] MEDS ORDERED: AMIODARONE / D5W 150 MG/100 ML BAG IV STA (23:51)
[2021-02-28] MEDS ORDERED: AMIODARONE / D5W 360 MG/200 ML BAG IV ONE (00:01)
[2021-02-28] MEDS ORDERED: LACTATED RINGER'S 1,000 ML IV STA (00:05)
[2021-02-28 00:45] LABS: Partial Thromboplastin Ratio 1.3; Partial Thromboplastin Time 33.3 Seconds (21.0-31.0)
--- NOTE | 2021-02-28 00:50 | History & Physical Report ---
Date of Service February 28, 2021 Assessment & Plan (1) Atrial fibrillation with RVR: Plan: New onset Secondary to sepsis, ARF on CKD Rule out UTI, obstructive uropathy given abdominal pain complaints/kidney dysfunction Syncope likely secondary to hypotension secondary to illness chronic anemia, hemoglobin at baseline Hyperglycemia rule out DM cognitive dysfunction as per records. PCU IV amiodarone for rate control given hypotension IV Heparin for thromboembolic prophylaxis if no bleeding on imaging Hold clonidine for now TTE, Cardiology consult Re: New onset A. fib Baseline UA, monitor creatinine response to IVF CT abdomen pelvis RE abdominal pain, kidney dysfunction CS, Cefepime Check hemoglobin A1c Social service RE discharge planning (Patient does not want to go back to [facility] upon discharge.) DVT prophylaxis. IV Heparin Full code Patient's family requesting updates from providers. Ms. Pallavi Wooten (sister), contact #[phone]. Ms. Oksana Sutton ([id number]), contact #[phone]. Text document was generated using [employer] voice recognition software. It may contain grammatical or spelling errors. Kindly contact undersigned for clarification of any documentation item in question. History of Present Illness Chief Complaint: Unresponsiveness as per records Primary Care Provider: Daniel Love DO History obtained from patient, family, and records. Patient is a fair historian. History somewhat limited from patient secondary to hearing impairment. Medical history significant for hypertension, hyperlipidemia, gout, CRI (baseline creatinine 1.5), chronic anemia (baseline hemoglobin of 11 ), cognitive dysfunction as per records. Last confinement December 2020 for small bowel obstruction. Patient admitted to [facility] for rehab 01/18/21. Patient discharged to [facility] 02/04/21. Patient unhappy at current [facility] care [facility] residence. Patient not eating much. Poor appetite. Denies depression. Intermittent abdominal discomfort with occasional nausea/emesis. No constipation/diarrhea. Patient yelled for personal care facility staff to take her to the bathroom last night. Transient unresponsiveness while on the toilet. No witnessed seizures. Patient SBP noted to be 70s. Patient tachycardic. A. fib on the monitor upon EMS arrival. Patient more conscious in the ambulance. Patient denies headache, chest pain, S OB. IV Cardizem infusion initiated at the ER for rapid A. fib. IV Cefepime administered for possible sepsis. 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 Allergies Allergy/AdvReac Type Severity Reaction Status Date / Time No Known Allergies Allergy Unknown Verified 02/27/21 21:38 Home Medications Medication Instructions Recorded Confirmed Type allopurinol 100 mg tablet 100 mg PO QAM 05/04/18 02/27/21 History clonidine HCl 0.1 mg tablet 0.1 mg PO QAM 05/04/18 02/27/21 History vit C,E,zinc,copper-mdauh1a 250 1 cap PO QAM 09/02/20 02/27/21 History mg-lutein 5 mg-zeaxanthin 1 mg capsule (Ocuvite Adult 50 Plus) ascorbic acid (vitamin C) 1,000 mg 1 g PO QAM 02/27/21 02/27/21 History tablet (Vitamin C) cyanocobalamin (vitamin B-12) 500 500 mcg PO QAM 02/27/21 02/27/21 History mcg tablet (Vitamin B-12) melatonin 3 mg tablet 3 mg PO HS PRN 02/27/21 02/27/21 History metoclopramide HCl 5 mg tablet 5 mg PO ACHS 02/27/21 02/27/21 History mirtazapine 15 mg tablet 15 mg PO HS 02/27/21 02/27/21 History omeprazole 40 mg capsule,delayed 40 mg PO DAILYBB 02/27/21 02/27/21 History release ondansetron HCl 4 mg tablet 4 mg PO Q6H PRN 02/27/21 02/27/21 History polyethylene glycol 3350 17 gram 17 g PO BID 02/27/21 02/27/21 History oral powder packet (Miralax) Past Med/Surg History Medical History CKD (chronic kidney disease), stage III Dyslipidemia GI bleed Gout Hypertension Leg edema Poor historian Surgical History History of abdominal surgery R/T GI BLEED History of [place] II operation History of cataract surgery RT History of cholecystectomy History of tooth extraction History of total knee replacement BL Family History (Updated 12/21/20 @ 20:29 by Carolina Cornell PA-C) Father Cancer Brother Heart disease Mother Hypertension Social History Smoking Status: Never smoker Second Hand Exposure: No; Hx Alcohol Use: No Hx Substance Use: No Preferred Language: Malay Communication Ability: Effective 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 Required: No Beliefs That Will Affect Care: None marital status: / Current Living Situation: Personal Care Facility current occupational status: retired Other Information That Helps Us Care for You: No Feels Safe at Home: Yes Safety Concerns: Feels Safe At This Time Assistive Devices: None and Walker Review of Systems Review of Systems: As per HPI, all 10 systems reviewed, all other ROS negative Physical Exam Physical Exam: GENERAL: Comfortable, slightly hard of hearing, slow response to some questions (chronic as per sister), no respiratory distress SKIN: Normal color, warm HEENT: [place] palpebral conjunctivae, no ptosis, dry buccal mucosa NECK : Supple, no tenderness CHEST : CTA, no tenderness HEART : Irregular, tachycardic ABDOMEN: Some distention, nontender EXTREMITIES : Bilateral LE swelling, no LE tenderness, no other conspicuous deformities noted NEUROLOGIC : Coherent, no facial asymmetry, slightly hard of hearing, slow response to some questions, no other gross focality Results & Data Results & Data ([facility]) Vital Signs (Past 12 Hours) Vital Signs Temp Pulse Pulse Resp BP BP Pulse Ox 02/28/21 00:16 119 H 17 102/61 95 02/28/21 00:01 119 H 17 95 02/27/21 23:45 123 H 17 95/58 L 100 02/27/21 23:37 118 H 18 95/63 L 100 02/27/21 23:30 116 H 19 77/50 L 100 02/27/21 23:26 119 H 20 87/60 L 96 02/27/21 23:24 100 02/27/21 23:16 135 H 19 92/43 L 100 02/27/21 23:01 126 H 22 125/57 L 97 02/27/21 22:50 127 H 18 100 02/27/21 22:31 151 H 18 97/56 L 100 02/27/21 22:28 131 H 15 99/57 L 100 02/27/21 22:20 126 H 19 100 02/27/21 22:16 124 H 19 100 02/27/21 22:01 129 H 19 80/62 L 97 02/27/21 21:46 146 H 21 101/71 95 02/27/21 21:31 133 H 24 93/53 L 99 02/27/21 21:17 141 H 22 95/74 L 100 02/27/21 21:12 97 02/27/21 20:55 162 H 24 154/46 H 100 02/27/21 20:44 37.1 C 154 H 24 154/46 H 97 Laboratory Results Laboratory Results WBC 15.90 K/uL (4.8-10.8) H 02/27/21 21:35 RBC 3.53 M/uL (4.2-5.4) L 02/27/21 21:35 Hgb 11.8 g/dL (12.0-16.0) L 02/27/21 21:35 Hct 35.1 % (37-47) L 02/27/21 21:35 MCV 99.4 fL (80-100) 02/27/21 21:35 MCH 33.4 pg (25-34) 02/27/21 21:35 MCHC 33.6 g/dL (32-36) 02/27/21 21:35 RDW Std Deviation 61.5 fL (36.4-46.3) H 02/27/21 21:35 RDW Coeff of Robert 16.9 % (11.5-14.5) H 02/27/21 21:35 Plt Count 114 K/uL (130-400) L 02/27/21 21:35 MPV 9.6 fL (7.4-10.4) 02/27/21 21:35 Immature Gran % (Auto) 0.9 % 02/27/21 21:35 Neut % (Auto) 89.1 % 02/27/21 21:35 Lymph % (Auto) 4.5 % 02/27/21 21:35 [place] % (Auto) 5.4 % 02/27/21 21:35 Eos % (Auto) 0.0 % 02/27/21 21:35 Baso % (Auto) 0.1 % 02/27/21 21:35 Neut # (Auto) 14.16 K/uL (1.4-6.5) H 02/27/21 21:35 Lymph # (Auto) 0.72 K/uL (1.2-3.4) L 02/27/21 21:35 [place] # (Auto) 0.86 K/uL (0.11-0.59) H 02/27/21 21:35 Eos # (Auto) 0.00 K/uL (0-0.5) 02/27/21 21:35 Baso # (Auto) 0.01 K/uL (0-0.2) 02/27/21 21:35 Immature Gran # (Auto) 0.15 K/uL (0.00-0.02) H 02/27/21 21:35 Polychromasia 1+ 02/27/21 21:35 Echinocytes 2+ 02/27/21 21:35 APTT 33.3 Seconds (21.0-31.0) H 02/27/21 21:36 PTT Ratio 1.3 02/27/21 21:36 Sodium 139 mmol/L (136-145) 02/27/21 21:35 Potassium 4.0 mmol/L (3.5-5.1) 02/27/21 21:35 Chloride 108 mmol/L (98-107) H 02/27/21 21:35 Carbon Dioxide 17 mmol/L (21-32) L 02/27/21 21:35 Anion Gap 14.0 (3-11) H 02/27/21 21:35 BUN 85 mg/dl (7-18) H 02/27/21 21:35 Creatinine 2.37 mg/dl (0.6-1.2) H 02/27/21 21:35 Est Cr Clr Drug Dosing 16.1 ml/min 02/27/21 21:35 Est GFR ( Amer) 21.4 ml/min 02/27/21 21:35 Est GFR (Non-Af Amer) 18.5 ml/min 02/27/21 21:35 BUN/Creatinine Ratio 35.9 (10-20) H 02/27/21 21:35 Glucose 133 mg/dl (70-99) H 02/27/21 21:35 Calcium 7.4 mg/dl (8.5-10.1) L 02/27/21 21:35 Magnesium 1.6 mg/dl (1.8-2.4) L 02/27/21 21:35 Total Bilirubin 0.7 mg/dl (0.2-1) 02/27/21 21:35 AST 28 U/L (15-37) 02/27/21 21:35 ALT 25 U/L (12-78) 02/27/21 21:35 Alkaline Phosphatase 98 U/L (45-117) 02/27/21 21:35 Troponin I 0.243 ng/ml (0-0.045) H* 02/27/21 21:35 NT-Pro-B Natriuret Pep 9221 pg/ml (0-1800) H 02/27/21 21:35 Total Protein 4.0 gm/dl (6.4-8.2) L 02/27/21 21:35 Albumin 1.3 gm/dl (3.4-5.0) L 02/27/21 21:35 Globulin 2.7 gm/dl (2.5-4.0) 02/27/21 21:35 Albumin/Globulin Ratio 0.5 (0.9-2) L 02/27/21 21:35 Lipase 40 U/L (73-393) L 02/27/21 21:35 Procalcitonin 1.12 ng/ml (0-0.5) H 02/27/21 21:36 TSH 2.330 uIu/ml (0.300-4.500) 02/27/21 21:35 COVID-19 Eval Order Covid19 at [facility] 02/27/21 23:15 SARS-CoV-2 (PCR) NEGATIVE (Negative) 02/27/21 23:[address] head initial read: No ICH, mass-effect or edema. No skull fracture. Involutional changes with small vessel disease. Encephalomalacia left parietal lobe. Chest x-ray as per my interpretation: No congestion, atelectasis EKG as per my interpretation : Rate 150, A. fib, LAD, LAFB, T wave abnormalities lateral leads, low voltage
[2021-02-28] MEDS ORDERED: MAGNESIUM SULFATE / D5W 1 GM/100 ML BAG IV ONE (01:14)
[2021-02-28 01:17] LABS: BUN Creatinine Ratio 41.5 (10-20); Calcium 6.7 mg/dl (8.5-10.1); Creatinine Clr Calc Pharmacy 19.5 ml/min; Est GFR (African American) 26.9 ml/min; Est GFR (Non-African American) 23.2 ml/min; Potassium 3.4 mmol/L (3.5-5.1)
[2021-02-28 01:29] LABS: Troponin I 0.488 ng/ml (0-0.045)
[2021-02-28] MEDS ORDERED: POTASSIUM CHLORIDE CRTAB 20 MEQ TABCR PO STA ×2 (02:09→02:14)
[2021-02-28] MEDS ORDERED: POTASSIUM CHLORIDE 40 MEQ in LACTATED RINGER'S 1,000 ML IV STA (02:14)
[2021-02-28] MEDS ORDERED: Heparin IV Adult Wt-Based Standard *NO* Bolus Protocol IV STA (02:59)
[2021-02-28 03:26] LABS: Appearance Urine Turbid (Clear); Bacteria Urine Automated 1+ (Negative); Bilirubin Urine Negative (Negative); Blood Urine Negative (Negative); Color Urine Dark Yellow; Epithelial Cell Urine Auto >30 /lpf (0-5); Glucose Urine UA Negative (Negative); Ketones Urine Trace (Negative); Leukocyte Esterase Urine Trace (Negative); Nitrite Urine Negative (Negative); Protein Urine 2+ (Negative); Urobilinogen Urine Negative (Negative)
[2021-02-28] MEDS ORDERED: PROMETHAZINE HCL 6.25 MG in SODIUM CHLORIDE 0.9% 50 ML IV PRN (03:37)
[2021-02-28] MEDS ORDERED: traMADol HCL 50 MG TABLET PO PRN (03:37)
[2021-02-28] MEDS ORDERED: MELATONIN 3 MG TAB PO PRN (03:37)
[2021-02-28] MEDS ORDERED: ACETAMINOPHEN 325 MG TAB PO PRN (03:37)
[2021-02-28 03:46] LABS: Cast Urine Automated >30 /lpf (0-5); RBC Urine Automated 0-4 /hpf (0-4)
[2021-02-28] MEDS: HEPARIN SODIUM/DEXTROSE 25,000 UNITS/500 ML BAG IV SCH (04:26)
[2021-02-28] MEDS ORDERED: CEFEPIME CONSULT ACTIVE PRN (05:08)
[2021-02-28] MEDS: AMIODARONE / D5W 360 MG/200 ML BAG IV SCH ×2 (06:17→16:56)
[2021-02-28] MEDS: PANTOprazole 40 MG TAB PO SCH (06:18)
[2021-02-28 06:52] LABS: Basophils # (auto) 0.02 K/uL (0-0.2); Basophils % (auto) 0.1 %; Hematocrit (blood only) 36.8 % (37-47); Hemoglobin 12.5 g/dL (12.0-16.0); Immature Granulocytes # (auto) 0.14 K/uL (0.00-0.02); Immature Granulocytes % (auto) 0.7 %; Lymphocytes # (auto) 1.08 K/uL (1.2-3.4); Lymphocytes % (auto) 5.5 %; Mean Corpuscular Hemoglobin 33.6 pg (25-34); Mean Corpuscular Volume 98.9 fL (80-100); Mean Platelet Volume 9.7 fL (7.4-10.4); Monocytes # (auto) 1.08 K/uL (0.11-0.59); Monocytes % (auto) 5.5 %; Neutrophils # (auto) 17.29 K/uL (1.4-6.5); Neutrophils % (auto) 88.2 %; Platelet Count 104 K/uL (130-400); RDW Coefficient of Variation 16.9 % (11.5-14.5); RDW Standard Deviation 61.1 fL (36.4-46.3); Red Blood Count 3.72 M/uL (4.2-5.4); White Blood Count 19.61 K/uL (4.8-10.8)
--- NOTE | 2021-02-28 07:00 | XRay Report ---
XR chest 1V portable INDICATION: MN ^syncope . TECHNIQUE: Single frontal radiograph of the chest was obtained. Comparison: None available at the time of this dictation. FINDINGS: No lines and tubes are seen. Calcified aortic knob is seen. The lungs are clear. No evidence of pleur al effusion or pneumothorax. IMPRESSION: No acute chest disease. ACT 112: Negative or not required by law. Electronically signed by: Valente Frey M.D. 02/28/2021 6:59 AM
--- NOTE | 2021-02-28 07:09 | CT Scan Report ---
CT head/brain wo con Clinical Indication: MN ^CTR B1 ^syncope. Technique: Contiguous axial CT images of the head were acquired from the base of the skull to the tashi beverley without intravenous contrast administration. Images were viewed in brain, subdural and bone [facility]. Automated dose lowering techniques and/or adjustment according to patient size were utilized for this exam. Comparison: None available at the time of this dictation. Findings: Areas of decreased attenuation are present in the periventricular and subcortical white matter bilate rally consistent with small vessel ischemic disease. Generalized cerebral atrophy with commensurate e nlargement of the ventricles, sulci, and cisterns is also present. There is no acute intracranial hem orrhage or evidence of acute territorial infarction. No shift of the midline structures, mass effect, or extra-axial abnormalities are shown. Atherosclerotic calcifications are present in the intracran ial segments of the internal carotid arteries. Focal encephalomalacia is noted in the left parietal l obe which may result from a prior infarct. Imaged portions of the paranasal sinuses and mastoid air cells are clear. The orbits appear normal. There are no acute fractures of the calvaria or scalp swelling. Impression: No acute intracranial hemorrhage, evidence of acute territorial infarction, or other acute intracrani al disease process. ACT 112: Negative or not required by law. Electronically signed by: Valente Frey M.D. 02/28/2021 7:07 AM
[2021-02-28 07:25] LABS: BUN Creatinine Ratio 37.4 (10-20); Calcium 7.9 mg/dl (8.5-10.1); Creatinine Clr Calc Pharmacy 17.8 ml/min; Est GFR (African American) 24.1 ml/min; Est GFR (Non-African American) 20.8 ml/min; Magnesium 1.9 mg/dl (1.8-2.4); Potassium 4.1 mmol/L (3.5-5.1)
[2021-02-28 08:08] LABS: Troponin I 0.507 ng/ml (0-0.045)
[2021-02-28] MEDS: allopurinoL 100 MG TAB PO SCH (08:57)
[2021-02-28] MEDS: CYANOCOBALAMIN 500 MCG TABLET (VITAMIN B-12) PO SCH ×2 (08:57→09:00)
[2021-02-28] MEDS: CEROVITE ADV FORMULA TAB PO SCH ×2 (08:57→09:00)
--- NOTE | 2021-02-28 11:01 | Cardiology Consultation ---
Date of Consultation February 28, 2021 Assessment & Plan (1) Atrial fibrillation with RVR: (2) Unresponsive episode: (3) TIFFANY (acute kidney injury): (4) Pulmonary hypertension: As previously outlined, the patient's echocardiogram suggests pulmonary hypertension and severe right ventricular dysfunction consistent with strain. Given the patient's presentation with atrial fibrillation and a syncopal event I believe pulmonary emboli needs to be excluded. The patient is currently anticoa gulated with heparin which should be continued until work-up can be completed. The patient should remain on amiodarone intravenously. She is currently not taking any medications p.o. Her heart rate is controlled and it appears to be sinus mechanism on the telemetry. History of Present Illness Attending Physician: Shravan Muñoz MD History of Present Illness This is an elderly 80-year-old female who was admitted from a snf. She can provide no history and therefore the history is taken from nursing as well as the medical record. Apparently, she was recently admitted to her new residence and was not doing well. She was refusing to eat. Last night she was on the toilet and had an unresponsive event. She was brought to the emergency department where she was found to be in atrial fibrillation with RVR along with hypotension. She was started on amiodarone intravenously as well as IV fluids in the emergency department which improved her tachycardia and hypotension. She now appears to be a sinus mechanism. Blood pressure has stabilized. She does not have any significant cardiac history. An echocardiogram was obtained this admission and shows a dilated right ventricle with severe hypokinesis and evidence of pulmonary hypertension. I think given her presentation of syncope and atrial fibrillation along with hypotension we have to exclude a pulmonary emboli. She is currently on heparin. Her renal function has declined since her most recent hospital admission and therefore a CT with contrast to rule out pulmonary emboli is not possible. She should have a work-up which would include Dopplers of the lower extremities and perhaps a perfusion study. Allergies Allergy/AdvReac Type Severity Reaction Status Date / Time No Known Allergies Allergy Unknown Verified 02/27/21 21:38 Home Medications Medication Instructions Recorded Confirmed Type allopurinol 100 mg tablet 100 mg PO QAM 05/04/18 02/27/21 History clonidine HCl 0.1 mg tablet 0.1 mg PO QAM 05/04/18 02/27/21 History vit C,E,zinc,copper-qjuya3u 250 1 cap PO QAM 09/02/20 02/27/21 History mg-lutein 5 mg-zeaxanthin 1 mg capsule (Ocuvite Adult 50 Plus) ascorbic acid (vitamin C) 1,000 mg 1 g PO QAM 02/27/21 02/27/21 History tablet (Vitamin C) cyanocobalamin (vitamin B-12) 500 500 mcg PO QAM 02/27/21 02/27/21 History mcg tablet (Vitamin B-12) melatonin 3 mg tablet 3 mg PO HS PRN 02/27/21 02/27/21 History metoclopramide HCl 5 mg tablet 5 mg PO ACHS 02/27/21 02/27/21 History mirtazapine 15 mg tablet 15 mg PO HS 02/27/21 02/27/21 History omeprazole 40 mg capsule,delayed 40 mg PO DAILYBB 02/27/21 02/27/21 History release ondansetron HCl 4 mg tablet 4 mg PO Q6H PRN 02/27/21 02/27/21 History polyethylene glycol 3350 17 gram 17 g PO BID 02/27/21 02/27/21 History oral powder packet (Miralax) Patient History Medical History CKD (chronic kidney disease), stage III Dyslipidemia GI bleed Leg edema Poor historian SBO (small bowel obstruction) Surgical History History of abdominal surgery R/T GI BLEED History of [place] II operation History of cataract surgery RT History of cholecystectomy History of tooth extraction History of total knee replacement BL Family History Father Cancer Brother Heart disease Mother Hypertension Social History Smoking Status: Never smoker Second Hand Exposure: No; Hx Alcohol Use: No Hx Substance Use: No Preferred Language: Wolof Communication Ability: Effective Valance Cutter Required: No Beliefs That Will Affect Care: None marital status: / Current Living Situation: Personal Care Facility current occupational status: retired How many Children do You have: 0 Other Information That Helps Us Care for You: No Feels Safe at Home: Yes Safety Concerns: Feels Safe At This Time Assistive Devices: None Review of Systems Review of Systems: Not obtainable Physical Exam Physical Exam: General: no acute distress and stated age Head: normocephalic, no masses, lesions, tenderness or abnormalities Eyes: conjunctiva are pink and non-injected, sclera clear Neck: supple, no adenopathy, no bruits, normal jugular venous pulse, no hepato jugular reflux Chest: normal shape and normal respiratory effort Lungs: clear to auscultation and percussion Cardiac Exam: - regular rate & rhythm, no murmurs gallops or rubs - normal S1, normal S2 Pulses: 2(+) throughout Abdomen: abdomen soft, non-tender, no abnormal masses and no hepatosplenomegaly Musculoskeletal: no gait disturbance, no joint inflammation, no deforming arthritis Extremities: no edema and no cyanosis Neuro: grossly normal exam Results & Data ([facility]) Vital Signs (Past 12 Hours) Vital Signs Temp Pulse Pulse Pulse Resp BP BP 02/28/21 07:21 85 16 115/84 02/28/21 03:15 36.4 C L 119 H 20 111/61 02/28/21 02:01 95 H 17 111/65 02/28/21 01:12 104 H 17 02/28/21 00:49 114 H 18 92/68 L 02/28/21 00:30 98 H 17 100/61 02/28/21 00:16 119 H 17 102/61 02/28/21 00:01 119 H 17 02/27/21 23:45 123 H 17 95/58 L 02/27/21 23:37 118 H 18 95/63 L 02/27/21 23:30 116 H 19 77/50 L 02/27/21 23:26 119 H 20 87/60 L 02/27/21 23:24 02/27/21 23:16 135 H 19 92/43 L 02/27/21 23:01 126 H 22 125/57 L Pulse Ox 02/28/21 07:21 92 02/28/21 03:15 95 02/28/21 02:01 100 02/28/21 01:12 100 02/28/21 00:49 100 02/28/21 00:30 99 02/28/21 00:16 95 02/28/21 00:01 95 09/22/21 23:45 100 02/27/21 23:37 100 02/27/21 23:30 100 02/27/21 23:26 96 02/27/21 23:24 100 02/27/21 23:16 100 02/27/21 23:01 97 Laboratory Results Laboratory Results - last 24 hr 02/27/21 02/27/21 02/27/21 21:35 21:35 21:36 WBC 15.90 H RBC 3.53 L Hgb 11.8 L Hct 35.1 L MCV 99.4 MCH 33.4 MCHC 33.6 RDW Std Deviation 61.5 H RDW Coeff of Robert 16.9 H Plt Count 114 L MPV 9.6 Immature Gran % (Auto) 0.9 Neut % (Auto) 89.1 Lymph % (Auto) 4.5 Mccracken % (Auto) 5.4 Eos % (Auto) 0.0 Baso % (Auto) 0.1 Neut # (Auto) 14.16 H Lymph # (Auto) 0.72 L Mccracken # (Auto) 0.86 H Eos # (Auto) 0.00 Baso # (Auto) 0.01 Immature Gran # (Auto) 0.15 H Polychromasia 1+ Echinocytes 2+ APTT PTT Ratio Sodium 139 Potassium 4.0 Chloride 108 H Carbon Dioxide 17 L Anion Gap 14.0 H BUN 85 H Creatinine 2.37 H Est Cr Clr Drug Dosing 16.1 Est GFR ( Amer) 21.4 Est GFR (Non-Af Amer) 18.5 BUN/Creatinine Ratio 35.9 H Glucose 133 H Lactate Calcium 7.4 L Magnesium 1.6 L Total Bilirubin 0.7 AST 28 ALT 25 Alkaline Phosphatase 98 Total Creatine Kinase Troponin I 0.243 H* NT-Pro-B Natriuret Pep 9221 H Total Protein 4.0 L Albumin 1.3 L Globulin 2.7 Albumin/Globulin Ratio 0.5 L Lipase 40 L Procalcitonin 1.12 H TSH 2.330 Urine Color Urine Appearance Urine pH Ur Specific [place] Urine Protein Urine Glucose (UA) Urine Ketones Urine Blood Urine Nitrite Urine Bilirubin Urine Urobilinogen Ur Leukocyte Esterase Urine WBC (Auto) Urine RBC (Auto) U Hyaline Cast (Auto) U Epithel Cells (Auto) Urine Bacteria (Auto) Granular Casts Urine Yeast COVID-19 Eval Order SARS-CoV-2 (PCR) 02/27/21 02/27/21 02/27/21 21:36 23:15 23:15 WBC RBC Hgb Hct MCV MCH MCHC RDW Std Deviation RDW Coeff of Robert Plt Count MPV Immature Gran % (Auto) Neut % (Auto) Lymph % (Auto) M[place]racken % (Auto) Eos % (Auto) Baso % (Auto) Neut # (Auto) Lymph # (Auto) M[place]racken # (Auto) Eos # (Auto) Baso # (Auto) Immature Gran # (Auto) Polychromasia Echinocytes APTT 33.3 H PTT Ratio 1.3 Sodium Potassium Chloride Carbon Dioxide Anion Gap BUN Creatinine Est Cr Clr Drug Dosing Est GFR ( Amer) Est GFR (Non-Af Amer) BUN/Creatinine Ratio Glucose Lactate Calcium Magnesium Total Bilirubin AST ALT Alkaline Phosphatase Total Creatine Kinase Troponin I NT-Pro-B Natriuret Pep Total Protein Albumin Globulin Albumin/Globulin Ratio Lipase Procalcitonin TSH Urine Color Urine Appearance Urine pH Ur Specific [place] Urine Protein Urine Glucose (UA) Urine Ketones Urine Blood Urine Nitrite Urine Bilirubin Urine Urobilinogen Ur Leukocyte Esterase Urine WBC (Auto) Urine RBC (Auto) U Hyaline Cast (Auto) U Epithel Cells (Auto) Urine Bacteria (Auto) Granular Casts Urine Yeast COVID-19 Eval Order Covid19 at [facility] SARS-CoV-2 (PCR) NEGATIVE 02/28/21 02/28/21 02/28/21 00:39 00:39 03:08 WBC RBC Hgb Hct MCV MCH MCHC RDW Std Deviation RDW Coeff of Robert Plt Count MPV Immature Gran % (Auto) Neut % (Auto) Lymph % (Auto) [place]rack[place] % (Auto) Eos % (Auto) Baso % (Auto) Neut # (Auto) Lymph # (Auto) M[place]racken # (Auto) Eos # (Auto) Baso # (Auto) Immature Gran # (Auto) Polychromasia Echinocytes APTT PTT Ratio Sodium 140 Potassium 3.4 L Chloride 111 H Carbon Dioxide 16 L Anion Gap 13.0 H BUN 81 H Creatinine 1.96 H D Est Cr Clr Drug Dosing 19.5 Est GFR ( Amer) 26.9 Est GFR (Non-Af Amer) 23.2 BUN/Creatinine Ratio 41.5 H Glucose 156 H Lactate 1.9 Calcium 6.7 L Magnesium Total Bilirubin AST ALT Alkaline Phosphatase Total Creatine Kinase 82 Troponin I 0.488 H* NT-Pro-B Natriuret Pep Total Protein Albumin Globulin Albumin/Globulin Ratio Lipase Procalcitonin TSH Urine Color Dark Yellow Urine Appearance Turbid A Urine pH 5.0 Ur Specific [place] 1.020 Urine Protein 2+ H Urine Glucose (UA) Negative Urine Ketones Trace H Urine Blood Negative Urine Nitrite Negative Urine Bilirubin Negative Urine Urobilinogen Negative Ur Leukocyte Esterase Trace H Urine WBC (Auto) 10-30 H Urine RBC (Auto) 0-4 U Hyaline Cast (Auto) >30 H U Epithel Cells (Auto) >30 H Urine Bacteria (Auto) 1+ H Granular Casts 5-10 H Urine Yeast Not Reportable COVID-19 Eval Order SARS-CoV-2 (PCR) 02/28/21 02/28/21 06:45 06:45 WBC 19.61 H RBC 3.72 L Hgb 12.5 Hct 36.8 L MCV 98.9 MCH 33.6 MCHC 34.0 RDW Std Deviation 61.1 H RDW Coeff of Robert 16.9 H Plt Count 104 L MPV 9.7 Immature Gran % (Auto) 0.7 Neut % (Auto) 88.2 Lymph % (Auto) 5.5 M[place]racken % (Auto) 5.5 Eos % (Auto) 0.0 Baso % (Auto) 0.1 Neut # (Auto) 17.29 H Lymph # (Auto) 1.08 L [place] # (Auto) 1.08 H Eos # (Auto) 0.00 Baso # (Auto) 0.02 Immature Gran # (Auto) 0.14 H Polychromasia Echinocytes APTT PTT Ratio Sodium 137 Potassium 4.1 D Chloride 106 Carbon Dioxide 18 L Anion Gap 13.0 H BUN 80 H Creatinine 2.15 H Est Cr Clr Drug Dosing 17.8 Est GFR ( Amer) 24.1 Est GFR (Non-Af Amer) 20.8 BUN/Creatinine Ratio 37.4 H Glucose 110 H Lactate Calcium 7.9 L D Magnesium 1.9 Total Bilirubin AST ALT Alkaline Phosphatase Total Creatine Kinase Troponin I 0.507 H* NT-Pro-B Natriuret Pep Total Protein Albumin Globulin Albumin/Globulin Ratio Lipase Procalcitonin TSH Urine Color Urine Appearance Urine pH Ur Specific [place] Urine Protein Urine Glucose (UA) Urine Ketones Urine Blood Urine Nitrite Urine Bilirubin Urine Urobilinogen Ur Leukocyte Esterase Urine WBC (Auto) Urine RBC (Auto) U Hyaline Cast (Auto) U Epithel Cells (Auto) Urine Bacteria (Auto) Granular Casts Urine Yeast COVID-19 Eval Order SARS-CoV-2 (PCR) Medications Administered Current Inpatient Medications Acetaminophen (Acetaminophen 325 Mg Tab) 650 mg PO Q4H PRN PRN Reason: Pain or Fever Stop: 03/30/21 03:36 Allopurinol (Allopurinol 100 Mg Tab) 100 mg PO QAM IRENE Stop: 03/30/21 08:59 Last Admin: 02/28/21 08:57 Dose: 100 mg Documented by: Cyanocobalamin (Cyanocobalamin 500 Mcg Tablet (Vitamin B-12)) 500 mcg PO QAM IRENE Stop: 03/30/21 08:59 Last Admin: 02/28/21 09:00 Dose: Not Given Documented by: Amiodarone HCl/Dextrose (Nexterone / D5w) 360 mg in 200 mls @ 16.667 mls/hr IV .Q12H IRENE Stop: 03/30/21 05:59 Last Infusion: 02/28/21 07:09 Dose: 0.5 mg/min, 16.7 mls/hr Documented by: Potassium Chloride 40 meq/ (Lactated Ringer's) 1,020 mls @ 100 mls/hr IV .[id number] STA Stop: 02/28/21 12:25 Last Admin: 02/28/21 04:25 Dose: 100 mls/hr Documented by: Heparin Sodium/Dextrose (Heparin Sodium/Dextrose) 25,000 units in 500 mls @ 20 mls/hr IV .Q24H IRENE; Protocol Stop: 03/30/21 03:14 Last Titration: 02/28/21 07:09 Dose: 1,000 units/hr, 20 mls/hr Documented by: Promethazine HCl 6.25 mg/ (Sodium Chloride) 50.25 mls @ 201 mls/hr IV Q6H PRN PRN Reason: Nausea And Vomiting Stop: 03/30/21 03:36 Cefepime HCl 2,000 mg/ Syringe 20 mls @ 5 mls/min IV Q24H IRENE; Protocol Stop: 03/02/21 23:59 Melatonin (Melatonin 3 Mg Tab) 3 mg PO HS PRN PRN Reason: Insomnia Stop: 03/30/21 03:36 Miscellaneous Information (Cefepime Consult Active) 1 ea N/A UD PRN PRN Reason: Consult Stop: 03/30/21 05:07 Multivitamins/Minerals (Cerovite Adv Formula Tab) 1 [facility] Stop: 03/30/21 08:59 Last Admin: 02/28/21 09:00 Dose: Not Given Documented by: Pantoprazole Sodium (Pantoprazole 40 Mg Tab) [facility] Stop: 03/30/21 06:29 Last Admin: 02/28/21 06:18 Dose: 40 mg Documented by: Tramadol HCl (Tramadol Hcl 50 Mg Tablet) 25 - 50 mg PO Q4H PRN PRN Reason: Pain Stop: 03/30/21 03:36
[2021-02-28 11:39] LABS: Partial Thromboplastin Ratio > 5.3
[2021-02-28 11:40] LABS: Partial Thromboplastin Time > 139.0 Seconds (21.0-31.0)
--- NOTE | 2021-02-28 12:57 | Electrocardiogram Report ---
Test Reason : Blood Pressure : / mmHG Vent. Rate : 148 BPM Atrial Rate : 150 BPM P-R Int : 000 ms QRS Dur : 080 ms QT Int : 284 ms P-R-T Axes : 000 -54 092 degrees QTc Int : 445 ms Atrial fibrillation with rapid ventricular response Left axis deviation Low voltage QRS Abnormal ECG When compared with ECG of 02-SEP-2020 14:25, Atrial fibrillation has replaced Sinus rhythm Vent. rate has increased BY 81 BPM Confirmed by Rahul Richter ([id number]) on 02/28/2021 12:57:04 PM Referred By: REFERRED SELF Confirmed By:Rahul Richter
[2021-02-28 14:25] LABS: Partial Thromboplastin Ratio 1.4; Partial Thromboplastin Time 37.3 Seconds (21.0-31.0)
--- NOTE | 2021-02-28 16:04 | CT Scan Report ---
CT SCAN OF THE ABDOMEN AND PELVIS WITHOUT CONTRAST CLINICAL HISTORY: abd pain COMPARISON STUDY: September 02, 2020 TECHNIQUE: CT scan of the abdomen and pelvis was performed from the lung bases to the proximal femurs . Images are reviewed in the axial, sagittal, and coronal planes. IV contrast was not administered fo r this examination. A dose lowering technique was utilized adhering to the principles of ALARA. CT DOSE: 861.53 mGycm FINDINGS: Lower chest: Small bilateral pleural effusion. Tree-in-bud opacities within left lower lobe. Patchy a reas of groundglass attenuation within bilateral basis. Compressive atelectasis at dependent portions of bilateral lower lobes. Overall study is suboptimal due to beam hardening artifact from patient's arms and anasarca. Liver: The unenhanced liver is normal in size and attenuation. Slightly lobulated liver contour is se en which might represent cirrhosis. Gallbladder: Is not well seen, could be surgically absent. Spleen: Normal in size and attenuation. Pancreas: Is severely atrophic. Adrenal glands: Bilateral adrenal glands are slightly enlarged since prior study. Kidneys: The unenhanced kidneys are normal in size without hydronephrosis. There is no contour deform ing renal mass lesion. No renal calculi are identified. Bowel: Dilated fluid-filled portion of the distal esophagus is seen. Mild hiatal hernia is demonstrat ed. Bowel loops are nondilated. Fluid filled loops of small bowel are seen. Few focal areas of gas co llection within small bowel loops might represent fecalization sign due to long-standing intraluminal content. Appendix is not well visualized. Diverticulosis of sigmoid colon is seen. Evaluation for diverticulit is is limited due to diffuse mesenteric edema. Peritoneum: No definite free intraperitoneal gas. Diffuse peritoneal edema and anasarca is seen. Vasculature: Abdominal aorta is normal in caliber, extremely tortuous with heavy calcifications of it s wall. Adenopathy: None. Pelvic viscera: Urinary bladder is decompressed with Segura balloon within its lumen. Uterus is not we ll seen. Skeletal structures: Severe diffuse osteopenia and multilevel degenerative changes of the spine. Diffuse subcutaneous soft tissue edema. Coarse calcifications within posterior inferior right pelvic wall is again seen. IMPRESSION: 1. Nondilated loops of small and large bowel. No evidence of bowel obstruction. Suboptimal exam due to lack of IV contrast, beam hardening artifact from overlying patient's arms and anasarca. 2. Interval enlargement of bilateral adrenal glands. Suboptimal evaluation at this nonenhanced exam. Please correlate this findings with clinical presentation of adrenal abnormalities. 3. Diverticulosis. 4. Small bilateral pleural effusion. Tree-in-bud opacities within left base. Above-mentioned finding s might represent infectious/inflammatory etiology. Please correlate above-mentioned findings with cl inical presentation and prior history of pneumonia. 5. Extremely tortuous calcified aorta. 6. The rest of findings as above. ACT 112: Negative or not required by law. The above report was generated using voice recognition software. It may contain grammatical, syntax o r spelling errors. Electronically signed by: Betzaida Regan DO 02/28/2021 4:02 PM
--- NOTE | 2021-02-28 16:14 | Hospitalist Progress Note ---
Date of Service February 28, 2021 Assessment & Plan (1) Atrial fibrillation with RVR: Plan: Atrial fibrillation with RVR Syncopal episode Pulmonary hypertension Can not rule out PE -CXR: No acute process -Normal TSH -ECHO: Left ventricular cavity small. Severe concentric LVH. EF 50-55%. Right ventricle is severely dilated. Right ventricle systolic function is severely reduced. Left atrial size is normal. Right atrium is severely dilated. Aortic valve sclerosis moderate, without significant aortic valvular stenosis. Severe tricuspid regurgitation. Moderate pulmonary hypertension with estimated pulmonary artery pressure being 45 mmHg. Continue amiodarone, heparin drip Appreciate cardiology input Can not obtain CTA due to renal failure Will Obtain V/Q scan Acute Kidney Injury on CKD III Baseline Cr ~1.6 Cr:2.15 CT ABD pending Monitor renal function Avoid nephrotoxic agents as able Abnormal urine analysis Rule out UTI Urine culture pending Empirically started on Cefepime Chronic anemia Hb at baseline Monitor Dysphagia We will request speech evaluation Aspiration precautions Clear liquids for now Continue PPI DVT Px: IV Heparin Code Status Full Code Admission and Anticipated Discharge Date Admission Date: February 28, 2021 Subjective Patient is seen and examined at bedside Dysphagia with swallowing pills this morning Denies chest pain, dyspnea, dysuria, nausea, vomiting, abdominal pain Offers no other complaints Review of Systems Review of Systems: All systems reviewed & are unremarkable except as noted in Subjective Physical Exam Physical Exam: Physical Exam: Vitals signs as noted above General Appearance:Moderately built and nourished, no apparent distress Head: normocephalic, Atraumatic Eyes: normal inspection, EOMI Neck: supple, Trachea midline Respiratory/Chest: Coarse breath sounds, No accessory muscle use Cardiovascular:Irregular, No murmur Abdomen/GI:Soft, Non tender, Bowel sounds present Extremities/Musculoskeletal:normal inspection, B/L LE edema Neurologic/Psych:AAOX3, grossly no focal neurological deficits, +Hearing impairment Skin: normal color, warm Results & Data Results & Data ([facility]) Vital Signs (Past 12 Hours) Vital Signs Temp Pulse Resp BP Pulse Ox 02/28/21 12:00 36.5 C 79 15 100/69 95 02/28/21 07:21 85 16 115/84 92 Laboratory Results Short CBC 02/27/21 02/28/21 Range/Units 21:35 06:45 WBC 15.90 H 19.61 H (4.8-10.8) K/uL Hgb 11.8 L 12.5 (12.0-16.0) g/dL Hct 35.1 L 36.8 L (37-47) % Plt Count 114 L 104 L (130-400) K/uL BMP 02/27/21 02/28/21 02/28/21 21:35 00:39 06:45 Sodium 139 140 137 Potassium 4.0 3.4 L 4.1 D Chloride 108 H 111 H 106 Carbon Dioxide 17 L 16 L 18 L BUN 85 H 81 H 80 H Creatinine 2.37 H 1.96 H D 2.15 H Glucose 133 H 156 H 110 H Calcium 7.4 L 6.7 L 7.9 L D Cardiac Enzymes 02/27/21 02/28/21 02/28/21 Range/Units 21:35 00:39 06:45 Total Creatine Kinase 82 (26-192) U/L Troponin I 0.243 H* 0.488 H* 0.507 H* (0-0.045) ng/ml Liver Function 02/27/21 Range/Units 21:35 Total Bilirubin 0.7 (0.2-1) mg/dl AST 28 (15-37) U/L ALT 25 (12-78) U/L Alkaline Phosphatase 98 (45-117) U/L Albumin 1.3 L (3.4-5.0) gm/dl Urine 02/28/21 Range/Units 03:08 Urine Color Dark Yellow Urine Appearance Turbid A (Clear) Urine pH 5.0 (4.5-7.5) Ur Specific [place] 1.020 (1.000-1.030) Urine Protein 2+ H (Negative) Urine Glucose (UA) Negative (Negative)
--- NOTE | 2021-02-28 18:59 | Nuclear Medicine Report ---
NM pul perfusion HISTORY: 80 years-old Female R/O PE . Acute shortness of breath COMPARISON: Chest radiograph 02/27/2021, CT abdomen and pelvis 02/28/2021. TECHNIQUE: Pulmonary perfusion study was obtained following the intravenous administration of 5.1 mCi technetium 99 MAA administered via the right upper extremity. Ventilation images were not obtained s econdary to underlying droplet precautions. FINDINGS: Chest radiograph obtained on 02/27/2021 demonstrates mild cardiomegaly with questioned right upper eyad g zone opacities. Layering pleural effusions were seen on the CT abdomen and pelvis from 02/28/2021 al shena with bibasilar densities. There is heterogeneous tracer accumulation which is most pronounced centrally with numerous mostly sm all to moderate perfusion defects of the bilateral lungs, most of which are nonsegmental. These are s een within the upper, mid and lower lung grande. Decreased tracer activity within the lung bases. IMPRESSION: Numerous bilateral perfusion defects with decreased tracer activity of the lung bases. Th anibal findings may be secondary to layering pleural effusions with bilateral pulmonary opacities as see n on the CT study from earlier today. The study is intermediate probability for pulmonary embolus. Co rrelation with lower extremity Doppler recommended. ACT 112: Negative or not required by law. The above report was generated using voice recognition software. It may contain grammatical, syntax o r spelling errors. Electronically signed by: Jonathan Sky M.D. 02/28/2021 6:58 PM
[2021-02-28 21:29] LABS: Partial Thromboplastin Ratio 2.4
[2021-03-01] MEDS ORDERED: CEFEPIME 1,000 MG in SYRINGE 0 ML IV SCH
[2021-03-01] MEDS ORDERED: CEFEPIME 2,000 MG in SYRINGE 0 ML IV SCH
[2021-03-01] MEDS: AMIODARONE / D5W 360 MG/200 ML BAG IV SCH ×2 (05:10→16:49)
[2021-03-01] MEDS: PANTOprazole 40 MG TAB PO SCH (05:52)
[2021-03-01] MEDS: allopurinoL 100 MG TAB PO SCH (08:15)
[2021-03-01 08:19] LABS: Hemoglobin 12.9 g/dL (12.0-16.0); Mean Corpuscular Hemoglobin 34.2 pg (25-34); Mean Corpuscular Hgb Conc 34.9 g/dL (32-36); Mean Corpuscular Volume 98.1 fL (80-100); Mean Platelet Volume 10.5 fL (7.4-10.4); Platelet Count 103 K/uL (130-400); RDW Coefficient of Variation 16.9 % (11.5-14.5); RDW Standard Deviation 60.8 fL (36.4-46.3); Red Blood Count 3.77 M/uL (4.2-5.4)
[2021-03-01 08:31] LABS: BUN Creatinine Ratio 33.8 (10-20); Calcium 7.8 mg/dl (8.5-10.1); Creatinine Clr Calc Pharmacy 15.6 ml/min; Est GFR (African American) 20.6 ml/min; Est GFR (Non-African American) 17.7 ml/min; Magnesium 1.7 mg/dl (1.8-2.4); Potassium 5.1 mmol/L (3.5-5.1)
[2021-03-01 08:37] LABS: Partial Thromboplastin Ratio 4.5
[2021-03-01 08:48] LABS: Basophils # (auto) 0.03 K/uL (0-0.2); Basophils % (auto) 0.1 %; Immature Granulocytes # (auto) 0.21 K/uL (0.00-0.02); Immature Granulocytes % (auto) 0.9 %; Lymphocytes % (auto) 6.9 %; Monocytes # (auto) 1.15 K/uL (0.11-0.59); Monocytes % (auto) 4.9 %; Neutrophils # (auto) 20.31 K/uL (1.4-6.5); Neutrophils % (auto) 87.2 %; Toxic Granulation 1+
[2021-03-01] MEDS ORDERED: PIPERACILL/TAZOBAC CONSULT ACTIVE PRN (08:49)
[2021-03-01] MEDS ORDERED: PIPERACILLIN/TAZOBACTAM 4.5 GM in DEXTROSE 5% 100 ML IV ONE (09:00)
[2021-03-01] MEDS ORDERED: MAGNESIUM SULFATE / D5W 1 GM/100 ML BAG IV ONE (09:00)
--- NOTE | 2021-03-01 10:42 | CT Scan Report ---
CT OF THE CHEST WITHOUT IV CONTRAST CLINICAL HISTORY: ? Pneumonia COMPARISON STUDY: Chest radiograph February 27, 2021. CT DOSE: 222.35 mGy.cm TECHNIQUE: Axial images of the chest were obtained without IV contrast. Images were reviewed in the axial, sagittal, and coronal planes. IV contrast was not administered for this examination. Automat ed exposure control was utilized for the study. A dose lowering technique was utilized adhering to t he principles of ALARA. FINDINGS: Moderate cardiomegaly and coronary artery calcification is present. There is no pericardia l effusion. Anasarca is noted. There are small bilateral pleural effusions. No pneumothorax is presen t. Note is made of a 5.9 x 3 cm focus of dense consolidation within the posterior segment of the righ t upper lobe. This contains a few lucencies which could reflect minimal cavitation or dilated airways . Scattered additional mild groundglass opacities within the lungs are noted. The esophagus is mildly dilated and fluid-filled. No significant abnormalities are identified within visualized portions of the upper abdomen on this unenhanced examination. No thoracic lymphadenopathy. IMPRESSION: 1. 5.9 x 3 cm focus of dense consolidation within the right upper lobe suggestive of pneumonia. This contains a few lucencies which could reflect minimal cavitation or dilated airways. An underlying preet plastic process is considered unlikely however a follow-up chest CT in 3 months to ensure resolution is recommended. 2. Small bilateral pleural effusions. 3. Mildly dilated fluid-filled esophagus. 4. Anasarca. ACT 112: Negative or not required by law. Electronically signed by: Dick Lackey M.D. 03/01/2021 10:40 AM
--- NOTE | 2021-03-01 11:40 | Cardiology Progress Note ---
Date of Service March 01, 2021 Assessment & Plan (1) Atrial fibrillation with RVR: (2) Unresponsive episode: (3) TIFFANY (acute kidney injury): (4) Pulmonary hypertension: Plan: Patient is currently not taking oral intake very well. She is on amiodarone infusion and has not had any additional atrial fibrillation. At some point she will have to be switched over to oral amiodarone. Imaging studies of the chest are sort of nonconclusive. Dopplers of the lower extremities are pending. I would recommend continuing heparin at this time. Admission and Anticipated Discharge Date Admission Date: February 28, 2021 Subjective The patient is status quo. Review of Systems Review of Systems: Not obtainable Physical Exam Physical Exam: General: no acute distress and stated age Head: normocephalic, no masses, lesions, tenderness or abnormalities Eyes: conjunctiva are pink and non-injected, sclera clear Neck: supple, no adenopathy, no bruits, normal jugular venous pulse, no hepatojugular reflux Chest: normal shape and normal respiratory effort Lungs: clear to auscultation and percussion Cardiac Exam: - regular rate & rhythm, no murmurs gallops or rubs - normal S1, normal S2 Pulses: 2(+) throughout Abdomen: abdomen soft, non-tender, no abnormal masses and no hepatosplenomegaly Musculoskeletal: no gait disturbance, no joint inflammation, no deforming arthritis Extremities: no edema and no cyanosis Neuro: grossly normal exam Results & Data ([facility]) Vital Signs (Past 12 Hours) Vital Signs Temp Pulse Pulse Pulse Resp BP Pulse Ox 03/01/21 10:50 85 03/01/21 07:54 36.4 C L 56 L 21 124/78 97 03/01/21 05:27 36.4 C L 56 L 20 118/82 98 03/01/21 02:37 100 03/01/21 00:42 36.4 C L 76 20 112/74 03/01/21 00:00 91 H Laboratory Results Laboratory Results - last 24 hr 02/28/21 02/28/21 03/01/21 13:56 20:59 07:55 WBC 23.30 H RBC 3.77 L Hgb 12.9 Hct 37.0 MCV 98.1 MCH 34.2 H MCHC 34.9 RDW Std Deviation 60.8 H RDW Coeff of Robert 16.9 H Plt Count 103 L MPV 10.5 H Immature Gran % (Auto) 0.9 Neut % (Auto) 87.2 Lymph % (Auto) 6.9 [place] % (Auto) 4.9 Eos % (Auto) 0.0 Baso % (Auto) 0.1 Neut # (Auto) 20.31 H Lymph # (Auto) 1.60 [place] # (Auto) 1.15 H Eos # (Auto) 0.00 Baso # (Auto) 0.03 Immature Gran # (Auto) 0.21 H Toxic Granulation 1+ APTT 37.3 H 64.0 H* PTT Ratio 1.4 2.4 Sodium Potassium Chloride Carbon Dioxide Anion Gap BUN Creatinine Est Cr Clr Drug Dosing Est GFR ( Amer) Est GFR (Non-Af Amer) BUN/Creatinine Ratio Glucose Calcium Magnesium Specimen Hemolysis 03/01/21 03/01/21 07:55 07:55 WBC RBC Hgb Hct MCV MCH MCHC RDW Std Deviation RDW Coeff of Robert Plt Count MPV Immature Gran % (Auto) Neut % (Auto) Lymph % (Auto) [place] % (Auto) Eos % (Auto) Baso % (Auto) Neut # (Auto) Lymph # (Auto) [place] # (Auto) Eos # (Auto) Baso # (Auto) Immature Gran # (Auto) Toxic Granulation APTT 118.0 H* PTT Ratio 4.5 Sodium 132 L Potassium 5.1 D Chloride 105 Carbon Dioxide 16 L Anion Gap 11.0 BUN 83 H Creatinine 2.45 H D Est Cr Clr Drug Dosing 15.6 Est GFR ( Amer) 20.6 Est GFR (Non-Af Amer) 17.7 BUN/Creatinine Ratio 33.8 H Glucose 157 H Calcium 7.8 L Magnesium 1.7 L Specimen Hemolysis Diagnostic Findings Imaging studies are available and frankly nonconclusive. Medications Administered Current Inpatient Medications Acetaminophen (Acetaminophen 325 Mg Tab) 650 mg PO Q4H PRN PRN Reason: Pain or Fever Stop: 03/30/21 03:36 Allopurinol (Allopurinol 100 Mg Tab) [facility] [place]: 03/30/21 08:59 Last Admin: 03/01/21 08:15 Dose: 100 mg Documented by: Cyanocobalamin (Cyanocobalamin 500 Mcg Tablet (Vitamin B-12)) 500 mcg [facility] [place] Stop: 03/30/21 08:59 Last Admin: 02/28/21 09:00 Dose: Not Given Documented by: Amiodarone HCl/Dextrose (Nexterone / D5w) 360 mg in 200 mls @ 16.667 mls/hr IV .Q12H [facility] Stop: 03/30/21 05:59 Last Admin: 03/01/21 05:10 Dose: 0.5 mg/min, 16.7 mls/hr Documented by: Heparin Sodium/Dextrose (Heparin Sodium/Dextrose) 25,000 units in 500 mls @ 11 mls/hr IV .Q24H [facility]; Protocol Stop: 03/30/21 03:14 Last Titration: 03/01/21 10:28 Dose: 550 units/hr, 11 mls/hr Documented by: Promethazine HCl 6.25 mg/ (Sodium Chloride) 50.25 mls @ 201 mls/hr IV Q6H PRN PRN Reason: Nausea And Vomiting Stop: 03/30/21 03:36 Piperacillin Sod/Tazobactam (Sod 3.375 gm/ Dextrose) 115 mls @ 28.75 mls/hr IV Q12H [facility]; Protocol Stop: 03/08/21 16:59 Melatonin (Melatonin 3 Mg Tab) 3 mg PO HS PRN PRN Reason: Insomnia Stop: 03/30/21 03:36 Miscellaneous Information (Piperacill/Tazobac Consult Active) 1 ea N/A UD PRN PRN Reason: Consult Stop: 03/31/21 08:48 Multivitamins/Minerals (Cerovite Adv Formula Tab) 1 tab PO QAM [facility] Stop: 03/30/21 08:59 Last Admin: 02/28/21 09:00 Dose: Not Given Documented by: Pantoprazole Sodium (Pantoprazole 40 Mg Tab) 40 mg PO DAILYBB [facility] Stop: 03/30/21 06:29 Last Admin: 03/01/21 05:52 Dose: 40 mg Documented by: Tramadol HCl (Tramadol Hcl 50 Mg Tablet) 25 - 50 mg PO Q4H PRN PRN Reason: Pain Stop: 03/30/21 03:36
--- NOTE | 2021-03-01 12:12 | Ultrasound Report ---
US venous doppler LE BI INDICATION: MN ^Y ^Rule out DVT ^Pt to come by bed or liter. Comparison: None available at the time of this dictation. Procedure: Bilateral lower extremity real-time compression venous ultrasound with Color Doppler imagi ng. Utilizing real-time ultrasonic imaging multiple real time high-resolution ultrasonic images with comp ression and noncompression maneuvers of the deep venous system in addition to color doppler imaging w ere performed from the common femoral vein through the proximal calf veins. On the left, and occlusive deep venous thrombosis seen in the posterior tibial vein. The anterior tib ial vein is not seen. Intermittent flow is seen in the peroneal vein. On the right, there is a nonocclusive thrombus in the superficial femoral vein and nonocclusive throm bus in the popliteal vein. Intermittent flow is seen in the posterior tibial and peroneal veins. Impression: Bilateral deep venous thrombus as above. ACT 112: Negative or not required by law. Electronically signed by: Valente Frey M.D. 03/01/2021 12:10 PM
[2021-03-01] MEDS: HEPARIN SODIUM/DEXTROSE 25,000 UNITS/500 ML BAG IV SCH ×2 (13:12→18:58)
--- NOTE | 2021-03-01 14:54 | Consultation Report ---
NEPHROLOGY CONSULTATION NOTE DATE OF CONSULTATION: 03/01/2021 REASON FOR CONSULTATION: Acute renal failure. HISTORY OF PRESENT ILLNESS: The patient is an 80-year-old female who was admitted from a snf. She is unable to give any history in any meaningful way and history has been constructed from the medical records available. She was sent over to the hospital yesterday because of syncopal episode while in the bathroom. In the emergency department, she was found to be in atrial fibrillation with rapid ventricular response with hypotension. She was started on IV amiodarone intravenously as well as IV fluids, which did improve her tachycardia and hypotension. At this point, blood pressure is not low anymore. She does have acute renal failure. She was found to have very dilated right ventricle with severe hypokinesis and evidence of pulmonary hypertension. At this time, she is also getting heparin drip for presumptive pulmonary embolism. Did have duplex of the lower extremity as well as ventilation perfusion scan, which shows pulmonary embolus intermediate probability. Duplex of the lower extremity did show bilateral DVT. Her white cell count is also rising from 16,000, it is up to 23,000 at this time. The patient has normal creatinine at baseline as of December 2020. On admission, it was 2.37, and this morning it is 2.45. She has a Segura catheter, but it does not look like there is much urine. Yesterday, there was only 100 mL of urine charted in the computer. PAST MEDICAL AND SURGICAL HISTORY: Includes dyslipidemia, GI bleed, small-bowel obstruction, abdominal surgery to rule out GI bleed, history of Billroth II operation, cataract surgery, cholecystectomy, tooth extraction, total knee replacement. FAMILY HISTORY: Negative for renal disease or dialysis. SOCIAL HISTORY: Never smoked. No alcohol. She is currently living in a personal care. She is a . She is retired. ALLERGIES: List reviewed and no allergies. MEDICATIONS: Home medication list was reviewed in detail and as per the reconciliation list does not appear she was on any CAROL inhibitor, ARB, diuretics, or any NSAIDs. REVIEW OF SYSTEMS: Unable to obtain as the patient is not verbal. PHYSICAL EXAMINATION: GENERAL: Elderly white female who appears to be chronically ill and weak. She is in some respiratory distress too. VITAL SIGNS: Blood pressure is 110/69, pulse rate 53, temperature 36.3, oxygen saturation 98% on 2 liter nasal cannula. NECK: Jugular venous distention present. CHEST: Bilateral decreased breath sounds, occasional crackles. HEART: S1 and S2, tachycardic. Soft systolic murmur heard. ABDOMEN: Soft, nontender. EXTREMITIES: Shows bilateral 1+ edema. NEUROLOGIC: She is awake and alert, but I could not test the orientation as she is not following commands. LABORATORY TESTS: Blood work on admission showed a creatinine of 2.37, now in about 2 days' span it is still about the same with a creatinine of 2.45. This morning BUN is 83, bicarbonate is 16, sodium 132, potassium 5.1, troponin 0.5. BNP 9200. VQ scanning shows perfusion defects. Bilateral DVT was noted on the duplex of the lower extremity. Chest x-ray shows unremarkable finding, but CT chest does show significant pleural effusion as well as anasarca. ASSESSMENT AND PLAN: An 80-year-old female, now admitted with bilateral pulmonary embolus with bilateral deep venous thrombosis, associated with atrial fibrillation with rapid ventricular response and hypotension at the time of presentation. Not surprisingly, she has acute renal failure with all the hemodynamic issues going on for which I have been consulted. 1. Acute renal failure. Creatinine was 2.37 on admission and in about 36-hour time span it is still about the same at 2.45. The etiology of acute renal failure is all the hemodynamic changes going on with bilateral pulmonary embolism, deep venous thrombosis, atrial fibrillation with rapid ventricular response and hypotension prior to hospitalization. Considering what all is happening, it is actually remarkable that her creatinine has not really gone up significantly, but she is not making a lot of urine, which is concerning. It is very hard to assess her fluid status. She has severe rt heart strain, so giving diuretics will be very challenging, but she does have evidence of fluid retention. I will defer diuretics management if felt needed to cardiology. 2. Atrial fibrillation with rapid ventricular response with bilateral pulmonary embolism and rt heart strain----. This is the primary problem and will be complicated to manage, defer to cardiology. As long as her cardiac status and hemodynamic stability is maintained, I expect the kidney function to get better in the coming days. We will continue to follow the patient. Avoid nephrotoxic agents. Avoid CAROL or ARB at this time. Daily labs. Job ID: [id number] [facility]
--- NOTE | 2021-03-01 14:58 | Hospitalist Progress Note ---
Date of Service March 01, 2021 Assessment & Plan (1) Atrial fibrillation with RVR: Plan: Atrial fibrillation with RVR Syncopal episode Pulmonary hypertension Can not rule out PE -CXR: No acute process -Normal TSH -ECHO: Left ventricular cavity small. Severe concentric LVH. EF 50-55%. Right ventricle is severely dilated. Right ventricle systolic function is severely reduced. Left atrial size is normal. Right atrium is severely dilated. Aortic valve sclerosis moderate, without significant aortic valvular stenosis. Severe tricuspid regurgitation. Moderate pulmonary hypertension with estimated pulmonary artery pressure being 45 mmHg. -Continue amiodarone, heparin drip Appreciate cardiology input Acute B/L DVT -POA Presumed PE --V/Q scan :Numerous bilateral perfusion defects with decreased tracer activity of the lung bases. These findings may be secondary to layering pleural effusions with bilateral pulmonary opacities as seen on the CT study from earlier today. The study is intermediate probability for pulmonary embolus. --Venous Doppler:On the left, and occlusive deep venous thrombosis seen in the posterior tibial vein. The anterior tibial vein is not seen. Intermittent flow is seen in the peroneal vein. On the right, there is a nonocclusive thrombus in the superficial femoral vein and nonocclusive thrombus in the popliteal vein. Intermittent flow is seen in the posterior tibial and peroneal veins. -Can not obtain CTA due to renal failure -Continue IV Heparin for now Pneumonia Likely due to aspiration -CT Chest:5.9 x 3 cm focus of dense consolidation within the right upper lobe suggestive of pneumonia. This contains a few lucencies which could reflect minimal cavitation or dilated airways. An underlying neoplastic process is considered unlikely however a follow-up chest CT in 3 months to ensure resolution is recommended. Small bilateral pleural effusions. Mildly dilated fluid-filled esophagus. -Blood Cx: Negative to date -Cefepime changed to Zosyn -Speech Eval completed -Persistent leukocytosis -Consider Pulm eval if needed Acute Kidney Injury on CKD III Baseline Cr ~1.6 Cr:2.15>2.45 -CT ABD :The unenhanced kidneys are normal in size without hydronephrosis. There is no contour deforming renal mass lesion. No renal calculi are identified. Monitor renal function Avoid nephrotoxic agents as able Appreciate Nephrology Input Monitor volume status BL Adrenal enlargement Incidental finding on CT scan Needs further evaluation as outpatient Abnormal urine analysis UTI can not be ruled out Urine culture:Not confirmatory Likely contaminated sample Cefepime transitioned to Zosyn as above Chronic anemia Hb at baseline Monitor Dysphagia Mildly dilated fluid-filled esophagus on CT Aspiration precautions Speech eval Pureed diet for now May need GI eval if doesn't tolerate diet DVT Px: IV Heparin Code Status Full Code Admission and Anticipated Discharge Date Admission Date: February 28, 2021 Subjective Patient is seen and examined at bedside Discussed with Nephrology and Cardiology today No new complaints Denies chest pain, dyspnea, dysuria, nausea, vomiting, abdominal pain Review of Systems Review of Systems: All systems reviewed & are unremarkable except as noted in Subjective Physical Exam Physical Exam: Physical Exam: Vitals signs as noted above General Appearance:Moderately built and nourished, no apparent distress Head: normocephalic, Atraumatic Eyes: normal inspection, EOMI Neck: supple, Trachea midline Respiratory/Chest: Coarse breath sounds, No accessory muscle use Cardiovascular:Irregular, No murmur Abdomen/GI:Soft, Non tender, Bowel sounds present Extremities/Musculoskeletal:normal inspection, B/L LE edema Neurologic/Psych:AAOX3, grossly no focal neurological deficits, +Hearing impairment Skin: normal color, warm Results & Data Results & Data ([facility]) Vital Signs (Past 12 Hours) Vital Signs Temp Pulse Pulse Pulse Resp BP Pulse Ox 03/01/21 12:11 36.3 C L 53 L 22 110/69 98 03/01/21 10:50 85 03/01/21 07:54 36.4 C L 56 L 21 124/78 97 03/01/21 05:27 36.4 C L 56 L 20 118/82 98 Laboratory Results Short CBC 03/01/21 Range/Units 07:55 WBC 23.30 H (4.8-10.8) K/uL Hgb 12.9 (12.0-16.0) g/dL Hct 37.0 (37-47) % Plt Count 103 L (130-400) K/uL BMP 03/01/21 07:55 Sodium 132 L Potassium 5.1 D Chloride 105 Carbon Dioxide 16 L BUN 83 H Creatinine 2.45 H D Glucose 157 H Calcium 7.8 L
[2021-03-01] MEDS: PIPERACILLIN/TAZOBACTAM 3.375 GM in DEXTROSE 5% 100 ML IV SCH (16:42)
[2021-03-01 18:54] LABS: Partial Thromboplastin Ratio 1.6; Partial Thromboplastin Time 42.6 Seconds (21.0-31.0)
[2021-03-02 03:13] LABS: Basophils # (auto) 0.01 K/uL (0-0.2); Hematocrit (blood only) 33.4 % (37-47); Hemoglobin 11.7 g/dL (12.0-16.0); Immature Granulocytes # (auto) 0.12 K/uL (0.00-0.02); Immature Granulocytes % (auto) 0.6 %; Lymphocytes # (auto) 0.85 K/uL (1.2-3.4); Lymphocytes % (auto) 4.1 %; Mean Corpuscular Hemoglobin 34.3 pg (25-34); Mean Corpuscular Volume 97.9 fL (80-100); Mean Platelet Volume 9.8 fL (7.4-10.4); Monocytes # (auto) 0.91 K/uL (0.11-0.59); Monocytes % (auto) 4.4 %; Neutrophils # (auto) 18.91 K/uL (1.4-6.5); Neutrophils % (auto) 90.9 %; Platelet Count 111 K/uL (130-400); RDW Coefficient of Variation 16.6 % (11.5-14.5); RDW Standard Deviation 59.6 fL (36.4-46.3); Red Blood Count 3.41 M/uL (4.2-5.4)
[2021-03-02 03:33] LABS: Partial Thromboplastin Ratio 2.1
[2021-03-02 03:40] LABS: Partial Thromboplastin Time 55.2 Seconds (21.0-31.0)
[2021-03-02 03:41] LABS: BUN Creatinine Ratio 33.5 (10-20); Calcium 7.7 mg/dl (8.5-10.1); Creatinine Clr Calc Pharmacy 14.4 ml/min; Est GFR (African American) 18.6 ml/min; Est GFR (Non-African American) 16.1 ml/min; Magnesium 1.8 mg/dl (1.8-2.4)
[2021-03-02] MEDS: AMIODARONE / D5W 360 MG/200 ML BAG IV SCH ×2 (05:05→18:06)
[2021-03-02] MEDS: PIPERACILLIN/TAZOBACTAM 3.375 GM in DEXTROSE 5% 100 ML IV SCH ×2 (05:23→18:07)
[2021-03-02] MEDS: PANTOprazole 40 MG TAB PO SCH (05:52)
[2021-03-02] MEDS: allopurinoL 100 MG TAB PO SCH (08:19)
--- NOTE | 2021-03-02 09:31 | Cardiology Progress Note ---
Date of Service March 02, 2021 Assessment & Plan (1) Atrial fibrillation with RVR: (2) Unresponsive episode: (3) TIFFANY (acute kidney injury): (4) Pulmonary hypertension: (5) DVT of lower extremity, bilateral: Plan: Lower extremity venous Doppler study positive for bilateral DVT, which correlates well with the clinical suspicion of venous thrombotic event with acute RV strain on echocardiogram, pulmonary perfusion defects on nuclear medicine imaging. CT angiogram not performed due to acute kidney injury. Chest CT notable for a 5.9 x 3 cm dense consolidation of the right upper lobe consistent with pneumonia. Small bilateral pleural effusions noted. From a perspective, patient remains in sinus rhythm on amiodarone infusion. She is not tolerating oral medications well, and I think it is most prudent to maintain the amiodarone infusion at present as she is certainly at risk for recurrent symptomatic atrial arrhythmias. We will start low-dose oral metoprolol. Continue heparin infusion for stroke prophylaxis as well as treatment for DVT, suspected pulmonary embolism. Given recent initiation of Zosyn, will defer timing of starting Coumadin to the primary team. With regards to her acute kidney injury, creatinine continues to rise, 2.66 toda y, perhaps related to ATN from renal hypoperfusion related to acute pulmonary embolism, right ventricular dysfunction, hemodynamic effects of transient atrial fibrillation. Continue to hold both diuretics and IV fluids. Admission and Anticipated Discharge Date Admission Date: February 28, 2021 Subjective Patient in in cardiology follow-up. She is thin and frail in appearance. No acute distress. Supplemental oxygen is being provided. Telemetry reveals sinus rhythm with premature atrial contractions, heart rate in the 90s. IV amiodarone and IV heparin are currently infusing. Review of Systems Review of Systems: All systems reviewed & are unremarkable except as noted in HPI & below Physical Exam Physical Exam: Temp Pulse Resp BP Pulse Ox 36.8 C 89 20 115/63 100 03/02/21 08:00 03/02/21 08:00 03/02/21 08:00 03/02/21 08:00 03/02/21 08:00 Constitutional: no acute distress and not thin Respiratory: normal respiratory effort, lungs clear to auscultation Cardiovascular: Rate/Rhythm: regular rate Heart Sounds: no murmur Extremities: no edema Gastrointestinal (Abdomen): normal bowel sounds, soft, nontender, no hepatosplenomegaly Neurologic: PERRL, EOMI, accommodation nl, no face palsy, no dysarthria Results & Data ([facility]) Vital Signs (Past 12 Hours) Vital Signs Temp Pulse Pulse Resp BP Pulse Ox 03/02/21 08:00 36.8 C 89 20 115/63 100 03/02/21 07:47 78 03/02/21 03:39 36.3 C L 59 L 20 100/66 99 03/01/21 23:34 79 03/01/21 22:45 36 C L 63 20 106/63 97 Laboratory Results Coagulation 03/01/21 03/02/21 Range/Units 18:37 02:47 APTT 42.6 H 55.2 H* (21.0-31.0) Seconds CBC 03/02/21 Range/Units 02:47 WBC 20.80 H (4.8-10.8) K/uL RBC 3.41 L (4.2-5.4) M/uL Hgb 11.7 L (12.0-16.0) g/dL Hct 33.4 L (37-47) % Plt Count 111 L (130-400) K/uL Neut # (Auto) 18.91 H (1.4-6.5) K/uL Lymph # (Auto) 0.85 L (1.2-3.4) K/uL [place] # (Auto) 0.91 H (0.11-0.59) K/uL Eos # (Auto) 0.00 (0-0.5) K/uL Baso # (Auto) 0.01 (0-0.2) K/uL Comprehensive Metabolic Panel 03/02/21 Range/Units 02:47 Sodium 132 L (136-145) mmol/L Potassium 5.0 (3.5-5.1) mmol/L Chloride 107 (98-107) mmol/L Carbon Dioxide 17 L (21-32) mmol/L BUN 89 H (7-18) mg/dl Creatinine 2.66 H (0.6-1.2) mg/dl Glucose 90 (70-99) mg/dl Calcium 7.7 L (8.5-10.1) mg/dl Intake and Output 03/01/21 03/02/21 03/02/21 22:59 06:59 14:59 Intake Total 492.988 / 1569.555 426.2 / 1569.555 39.4 / 39.4 Output Total 50 / 175 100 / 175 Balance 442.988 / 1394.555 326.2 / 1394.555 39.4 / 39.4 Intake: IV 372.988 / 1089.555 306.2 / 1089.555 39.4 / 39.4 Amiodarone / D5w 360 mg In 200 194.555 / 394.555 200 / 394.555 ml @ 0.5 MG/MIN 16.667 mls/hr IV .Q12H [facility] Rx#:[id number] Heparin Sodium/Dextrose 25,000 63.433 / 360.000 106.2 / 360.000 39.4 / 39.4 units In 500 ml @ 600 UNITS/HR 12 mls/hr IV .Q24H [facility] Rx#: [id number] Piperacillin/Tazobactam 3.375 115 / 115 gm In Dextrose 5% 100 ml @ 28. 75 mls/hr IV Q12H [facility] Rx#: [id number] Oral 120 / 480 120 / 480 Output: Urine 100 / 100 Urine Amount (Catheter) 50 / 75 Segura/Indwelling 50 / 75 Other: Weight 64.5 kg
--- NOTE | 2021-03-02 12:34 | Nephrology Progress Note ---
Date of Service March 02, 2021 Assessment & Plan (1) TIFFANY (acute kidney injury): Plan: Creatinine was 2.37 on admission, it has been slowly creeping up Likely 2/ to hemodynamic changes going on with bilateral pulmonary embolism, deep venous thrombosis, atrial fibrillation with rapid ventricular response and hypotension prior to hospitalization. -Urine output has been marginally better, although I do not know how accurate this is, however her lytes are within normal range she is not in respiratory distress. - considering what all is happening, it is actually remarkable that her creatinine has not really gone up significantly - I will defer diuretics management if felt needed to cardiology (2) Atrial fibrillation with RVR: Admission and Anticipated Discharge Date Admission Date: February 28, 2021 Subjective Thin cachectic lady, not in distress. Bilateral pedal edema. Review of Systems Review of Systems: All systems reviewed & are unremarkable except as noted in Subjective Physical Exam Physical Exam: GENERAL: Elderly white female who appears to be chronically ill and weak. She is in some respiratory distress too. NECK: Jugular venous distention present. CHEST: Bilateral decreased breath sounds, occasional crackles. HEART: S1 and S2, tachycardic. Soft systolic murmur heard. ABDOMEN: Soft, nontender. EXTREMITIES: Shows bilateral 1+ edema. NEUROLOGIC: She is awake and alert Results & Data ([facility]) Vital Signs (Past 12 Hours) Vital Signs Temp Pulse Pulse Resp BP Pulse Ox 03/02/21 11:53 36.5 C 78 22 104/72 100 03/02/21 08:00 36.8 C 89 20 115/63 100 03/02/21 07:47 78 03/02/21 03:39 36.3 C L 59 L 20 100/66 99 Laboratory Results 03/02/21 02:47 03/02/21 02:47
--- NOTE | 2021-03-02 17:12 | Hospitalist Progress Note ---
Date of Service March 02, 2021 Assessment & Plan (1) Atrial fibrillation with RVR: Plan: Atrial fibrillation with RVR Syncopal episode Pulmonary hypertension Can not rule out PE -CXR: No acute process -Normal TSH -ECHO: Left ventricular cavity small. Severe concentric LVH. EF 50-55%. Right ventricle is severely dilated. Right ventricle systolic function is severely reduced. Left atrial size is normal. Right atrium is severely dilated. Aortic valve sclerosis moderate, without significant aortic valvular stenosis. Severe tricuspid regurgitation. Moderate pulmonary hypertension with estimated pulmonary artery pressure being 45 mmHg. -Continue amiodarone, heparin drip Appreciate cardiology input Start on Coumadin Monitor INR Acute B/L DVT -POA Presumed PE --V/Q scan :Numerous bilateral perfusion defects with decreased tracer activity of the lung bases. These findings may be secondary to layering pleural effusions with bilateral pulmonary opacities as seen on the CT study from earlier today. The study is intermediate probability for pulmonary embolus. --Venous Doppler:On the left, and occlusive deep venous thrombosis seen in the posterior tibial vein. The anterior tibial vein is not seen. Intermittent flow is seen in the peroneal vein. On the right, there is a nonocclusive thrombus in the superficial femoral vein and nonocclusive thrombus in the popliteal vein. Intermittent flow is seen in the posterior tibial and peroneal veins. -Can not obtain CTA due to renal failure -Continue IV Heparin till INR is therapeutic -Started on Coumadin Pneumonia Likely due to aspiration -CT Chest:5.9 x 3 cm focus of dense consolidation within the right upper lobe suggestive of pneumonia. This contains a few lucencies which could reflect minimal cavitation or dilated airways. An underlying neoplastic process is considered unlikely however a follow-up chest CT in 3 months to ensure resolution is recommended. Small bilateral pleural effusions. Mildly dilated fluid-filled esophagus. -Blood Cx: Negative to date -Cefepime changed to Zosyn -Speech Eval completed -Consider Pulm eval if needed Continue Zosyn Leukocytosis slowly improving Acute Kidney Injury on CKD III ? ATN Baseline Cr ~1.6 Cr:2.15>2.45>2.6 -CT ABD :The unenhanced kidneys are normal in size without hydronephrosis. There is no contour deforming renal mass lesion. No renal calculi are identified. Monitor renal function Avoid nephrotoxic agents as able Appreciate Nephrology Input Monitor volume status B/L Adrenal enlargement Incidental finding on CT scan Needs further evaluation as outpatient Abnormal urine analysis UTI can not be ruled out Urine culture:Not confirmatory Likely contaminated sample Cefepime transitioned to Zosyn as above Chronic anemia Hb at baseline Monitor Dysphagia Mildly dilated fluid-filled esophagus on CT Aspiration precautions Speech eval Pureed diet for now May need GI eval if doesn't tolerate diet DVT Px: IV Heparin Coumadin Code Status Full Code Admission and Anticipated Discharge Date Admission Date: February 28, 2021 Subjective Patient is seen and examined at bedside Intermittently confused Has cough Denies chest pain, dyspnea, dysuria, nausea, vomiting, abdominal pain Review of Systems Review of Systems: All systems reviewed & are unremarkable except as noted in Subjective Physical Exam Physical Exam: Physical Exam: Vitals signs as noted above General Appearance:Moderately built and nourished, no apparent distress Head: normocephalic, Atraumatic Eyes: normal inspection, EOMI Neck: supple, Trachea midline Respiratory/Chest: Coarse breath sounds, No accessory muscle use Cardiovascular:Irregular, No murmur Abdomen/GI:Soft, Non tender, Bowel sounds present Extremities/Musculoskeletal:normal inspection, B/L LE edema Neurologic/Psych:AAOX3, grossly no focal neurological deficits, +Hearing impairment Skin: normal color, warm Results & Data Results & Data ([facility]) Vital Signs (Past 12 Hours) Vital Signs Temp Pulse Pulse Resp BP Pulse Ox 03/02/21 16:03 36.6 C 87 22 84/60 L 94 03/02/21 11:53 36.5 C 78 22 104/72 100 03/02/21 08:00 36.8 C 89 20 115/63 100 03/02/21 07:47 78 Laboratory Results Short CBC 03/02/21 Range/Units 02:47 WBC 20.80 H (4.8-10.8) K/uL Hgb 11.7 L (12.0-16.0) g/dL Hct 33.4 L (37-47) % Plt Count 111 L (130-400) K/uL BMP 03/02/21 02:47 Sodium 132 L Potassium 5.0 Chloride 107 Carbon Dioxide 17 L BUN 89 H Creatinine 2.66 H Glucose 90 Calcium 7.7 L
[2021-03-02 18:11] LABS: INR 1.2 (0.9-1.1); Prothrombin Time 11.8 Seconds (9.0-12.0)
[2021-03-02] MEDS: WARFARIN SOD 5 MG TAB PO SCH (18:45)
[2021-03-02 23:26] LABS: Partial Thromboplastin Ratio 1.8
[2021-03-02 23:32] LABS: Partial Thromboplastin Time 46.1 Seconds (21.0-31.0)
[2021-03-03] MEDS: AMIODARONE / D5W 360 MG/200 ML BAG IV SCH (05:25)
[2021-03-03] MEDS: PIPERACILLIN/TAZOBACTAM 3.375 GM in DEXTROSE 5% 100 ML IV SCH ×2 (05:28→17:12)
[2021-03-03] MEDS: PANTOprazole 40 MG TAB PO SCH (06:06)
[2021-03-03] MEDS: HEPARIN SODIUM/DEXTROSE 25,000 UNITS/500 ML BAG IV SCH (08:16)
[2021-03-03] MEDS: allopurinoL 100 MG TAB PO SCH (08:16)
[2021-03-03 08:44] LABS: INR 1.3 (0.9-1.1); Partial Thromboplastin Ratio 1.7; Partial Thromboplastin Time 44.6 Seconds (21.0-31.0); Prothrombin Time 13.2 Seconds (9.0-12.0)
[2021-03-03 08:47] LABS: Hemoglobin 12.6 g/dL (12.0-16.0); Mean Corpuscular Hemoglobin 33.3 pg (25-34); Mean Corpuscular Volume 95.2 fL (80-100); RDW Coefficient of Variation 16.7 % (11.5-14.5); RDW Standard Deviation 58.3 fL (36.4-46.3); Red Blood Count 3.78 M/uL (4.2-5.4); White Blood Count 25.11 K/uL (4.8-10.8)
[2021-03-03 09:01] LABS: BUN Creatinine Ratio 30.5 (10-20); Creatinine Clr Calc Pharmacy 13.3 ml/min; Est GFR (African American) 16.2 ml/min; Magnesium 1.8 mg/dl (1.8-2.4); Potassium 4.7 mmol/L (3.5-5.1)
[2021-03-03 09:11] LABS: Basophils # (auto) 0.04 K/uL (0-0.2); Basophils % (auto) 0.2 %; Immature Granulocytes % (auto) 0.8 %; Lymphocytes % (auto) 4.8 %; Monocytes # (auto) 0.92 K/uL (0.11-0.59); Monocytes % (auto) 3.7 %; Neutrophils # (auto) 22.75 K/uL (1.4-6.5); Neutrophils % (auto) 90.5 %; Platelet Count 89 K/uL (130-400); Platelet Estimate Decreased (Normal)
--- NOTE | 2021-03-03 09:30 | Nephrology Progress Note ---
Date of Service March 03, 2021 Assessment & Plan (1) TIFFANY (acute kidney injury): Plan: Creatinine was 2.37 on admission, it has been slowly creeping up Likely 2/ to hemodynamic changes going on with bilateral pulmonary embolism, deep venous thrombosis, atrial fibrillation with rapid ventricular response and hypotension prior to hospitalization. -Urine output has been marginally better, however her lytes are within normal range she is in respiratory distress. -I think she needs to be started on diuretics , will leave this to cardiology. -She appears to be more confused today , urine output continues to be borderline , urea and creatinine has been climbing. -She does not need dialysis today , but there are high chances that she would require soon .Nevertheless I do not think she is a candidate for chronic dialysis. -Informed by nursing staff that she is been considered for palliative, which I think is the best way forward. -However we will continue to follow this (2) Atrial fibrillation with RVR: Admission and Anticipated Discharge Date Admission Date: February 28, 2021 Subjective More confused today, Has non productive cough Bilateral pedal edema. Review of Systems Review of Systems: All systems reviewed & are unremarkable except as noted in Subjective Physical Exam Physical Exam: GENERAL: Elderly white female who appears to be chronically ill and weak. She is in some respiratory distress too. NECK: Jugular venous distention present. CHEST: Bilateral decreased breath sounds, occasional crackles. HEART: S1 and S2, tachycardic. Soft systolic murmur heard. ABDOMEN: Soft, nontender. EXTREMITIES: Shows bilateral 1+ edema. NEUROLOGIC: She is awake and alert Results & Data ([facility]) Vital Signs (Past 12 Hours) Vital Signs Temp Pulse Pulse Resp BP Pulse Ox 03/03/21 07:30 88 03/03/21 06:53 36.6 C 80 20 101/67 95 03/03/21 03:22 36.4 C L 93 H 20 104/91 95 03/02/21 23:33 83 03/02/21 22:00 36.8 C 89 20 99/65 L 98 Laboratory Results 03/03/21 08:23 03/03/21 08:23
--- NOTE | 2021-03-03 09:44 | Pulmonary Consultation ---
Date of Consultation March 03, 2021 Assessment & Plan (1) Abnormal chest CT: (2) Pulmonary hypertension: (3) DVT of lower extremity, bilateral: CT chest 03/01/2021 personally reviewed: 3 x 6 cm right apical lobe consolidative process appreciated Bilateral pleural effusion Dilated esophagus No mediastinal lymphadenopathy VQ scan: Only perfusion images show some defect bilaterally especially at the bases. Intermediate probability --Abnormal chest CT Likely represents right upper lobe consolidative process Treat as if the patient has pneumonia with antibiotics Possibility of cancer is there was low in the differential COVID-19 PCR negative Procalcitonin 1.[address] chest in 8 weeks --Acute DVT Bilateral lower extremity --Pulmonary hypertension PASP 45 mmHg Severely reduced RV function Acute PE is high in the differential given acute DVT Plan: In/out: +7 L since coming to the hospital Continue with antibiotics for 10 days. Add atypical coverage with doxycycline. Repeat CT chest without contrast in 8 weeks In a 80-year-old patient with TIFFANY on CKD, acute pulmonary hypertension likely from PE, acute DVT I think conservative approach will be more appropriate Palliative care consult should be considered Recommend swallow eval given the dilated esophagus. Please note the above document was generated using voice recognition software. It may contain grammatical, syntax or spelling errors.Any formal questions or concerns about the content, text or information contained within the body of this dictation should be directly addressed to the provider for clarification. History of Present Illness Attending Physician: Shravan Muñoz MD History of Present Illness 80-year-old female past medical history of CKD, hypertension, dyslipidemia, go ut, dementia was admitted to the hospital because of poor appetite and hypotension In the ED patient was found to be in A. fib with RVR She had a CT chest done which showed right upper lobe infiltrate Pulmonary were consulted for the same Please make note patient is a very poor historian. History was obtained from previous records and ER chart At the time of examination patient was on room air saturating well. She was not in any respiratory distress She was continuously saying '' help me". On asking what she needed help with she was not able to answer. She denied any pain. She denied any leg or back pain. Denied any chest pain. No headache, no nausea or vomiting Has been afebrile. Social history: Non-smoker Allergies Allergy/AdvReac Type Severity Reaction Status Date / Time No Known Allergies Allergy Unknown Verified 02/27/21 21:38 Home Medications Medication Instructions Recorded Confirmed Type allopurinol 100 mg tablet 100 mg PO QAM 05/04/18 02/27/21 History clonidine HCl 0.1 mg tablet 0.1 mg PO QAM 05/04/18 02/27/21 History vit C,E,zinc,copper-[id number] 250 1 cap PO QAM 09/02/20 02/27/21 History mg-lutein 5 mg-zeaxanthin 1 mg capsule (Ocuvite Adult 50 Plus) ascorbic acid (vitamin C) 1,000 mg 1 g PO QAM 02/27/21 02/27/21 History tablet (Vitamin C) cyanocobalamin (vitamin B-12) 500 500 mcg PO QAM 02/27/21 02/27/21 History mcg tablet (Vitamin B-12) melatonin 3 mg tablet 3 mg PO HS PRN 02/27/21 02/27/21 History metoclopramide HCl 5 mg tablet 5 mg PO ACHS 02/27/21 02/27/21 History mirtazapine 15 mg tablet 15 mg PO HS 02/27/21 02/27/21 History omeprazole 40 mg capsule,delayed 40 mg PO DAILYBB 02/27/21 02/27/21 History release ondansetron HCl 4 mg tablet 4 mg PO Q6H PRN 02/27/21 02/27/21 History polyethylene glycol 3350 17 gram 17 g PO BID 02/27/21 02/27/21 History oral powder packet (Miralax) Patient History Medical History CKD (chronic kidney disease), stage III Dyslipidemia GI bleed Leg edema Poor historian SBO (small bowel obstruction) Surgical History History of abdominal surgery R/T GI BLEED History of [place] II operation History of cataract surgery RT History of cholecystectomy History of tooth extraction History of total knee replacement BL Family History Father Cancer Brother Heart disease Mother Hypertension Social History Smoking Status: Never smoker Second Hand Exposure: No; Hx Alcohol Use: No Hx Substance Use: No Preferred Language: Serbian Communication Ability: Effective Medical Claims Examiner Required: No Beliefs That Will Affect Care: None marital status: / Current Living Situation: Personal Care Facility current occupational status: retired How many Children do You have: 0 Other Information That Helps Us Care for You: No Feels Safe at Home: Yes Safety Concerns: Feels Safe At This Time Review of Systems Review of Systems: All systems reviewed & are unremarkable except as noted in HPI & below Physical Exam Physical Exam: Constitutional: No acute distress HEENT: EOMI, PERRLA, arcus senilis bilaterally Respiratory system: Decreased air entry bilaterally, no wheeze, rhonchi, pos itive crackles bilateral lower lobes as well as right upper anteriorly CVS: S1-S2 positive, no murmurs or gallops Abdomen: Soft, nontender, nondistended, positive bowel sounds x4 Extremities: +2 pulses bilaterally radialis/ dorsalis pedis, no cyanosis, +2 pitting edema bilateral lower extremity Neuro: Awake alert oriented to self Psych: Restless mood and affect G/U: Positive Segura Skin: no rashes, warm and dry Lymphatic: no cervical or axillary lymphadenopathy Results & Data Results & Data ([facility]) Vital Signs (Past 12 Hours) Vital Signs Temp Pulse Pulse Resp BP Pulse Ox 03/03/21 07:30 88 03/03/21 06:53 36.6 C 80 20 101/67 95 03/03/21 03:22 36.4 C L 93 H 20 104/91 95 03/02/21 23:33 83 03/02/21 22:00 36.8 C 89 20 99/65 L 98 03/03/21 08:23 03/03/21 08:23 PG Care Time/CCT Total # of Minutes Spent Total Time Spent with Patient: Total time spent is greater than 50% in coordination of care (as documented) at patient's floor/unit and/or counseling patient: Coding Level of Care Code 43887 Initial Inpt Care Lvl [address] R93.89 Pulmonary hypertension I27.20 DVT of lower extremity, bilateral I82.403
--- NOTE | 2021-03-03 11:09 | CT Scan Report ---
CT SCAN OF THE BRAIN WITHOUT IV CONTRAST CLINICAL HISTORY: Change in mental status. COMPARISON STUDY: CT of the brain dated 02/27/2021. TECHNIQUE: Unenhanced axial CT scan of the brain is performed from the vertex to the skull base. A do se lowering technique was utilized adhering to the principles of ALARA. 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 There are age- related involutional changes noting moderate subcortical and periventricular microangiopathic change . There is no hemorrhage, mass effect, or evidence of acute territorial ischemia by CT criteria. Matute -white matter differentiation is preserved. No extra-axial fluid collection is seen. Ventricles, sulci, cisterns: Prominent secondary to involutional change. Intracranial vasculature: There is atherosclerotic calcification of the cavernous carotid and vertebr al arteries. Calvarium: Unremarkable. Sinuses and mastoids: The visualized paranasal sinuses are clear. The mastoid air cells are well pneu matized. Orbits: The bony orbits are grossly intact. There are bilateral ocular lens implants. IMPRESSION: There is no hemorrhage, mass effect, or evidence of acute territorial ischemia by CT butch sultana. ACT 112: Negative or not required by law. Electronically signed by: Temo Rodriguez M.D. 03/03/2021 11:08 AM
[2021-03-03] MEDS: DOXYCYCLINE HYCLATE 100 MG in DEXTROSE 5% 100 ML IV SCH ×2 (11:15→22:40)
--- NOTE | 2021-03-03 13:31 | Cardiology Progress Note ---
Date of Service March 03, 2021 Assessment & Plan (1) Atrial fibrillation with RVR: (2) Unresponsive episode: (3) TIFFANY (acute kidney injury): (4) Pulmonary hypertension: (5) DVT of lower extremity, bilateral: Plan: Lower extremity venous Doppler study positive for bilateral DVT, which correlates well with the clinical suspicion of venous thrombotic event with acute RV strain on echocardiogram, pulmonary perfusion defects on nuclear medicine imaging. CT angiogram not performed due to acute kidney injury. Chest CT notable for a 5.9 x 3 cm dense consolidation of the right upper lobe consistent with pneumonia. Small bilateral pleural effusions noted. Creatinine increased to 2.98 mg /dl. Platelet count down to 89 k . Remains in SR. Transition from IV to oral amiodarone with caution given concerns for aspiration. Continue heparin to Coumadin with caution. Nephrology and pulmonary input appreciated. Admission and Anticipated Discharge Date Admission Date: February 28, 2021 Subjective Patient seen in follow up . No complaints. Perhaps confused. Physical Exam Physical Exam: Temp Pulse Resp BP Pulse Ox 36.7 C 87 20 101/67 98 03/03/21 11:00 03/03/21 11:00 03/03/21 11:00 03/03/21 11:00 03/03/21 11:00 Constitutional: + thin and + frail appearing; no acute distress Respiratory: mildly decreased BS at the bases Cardiovascular: Rate/Rhythm: regular rate Heart Sounds: no murmur Extremities: no edema Gastrointestinal (Abdomen): normal bowel sounds, soft, nontender, no hepatosplenomegaly Neurologic: follows commands. However does not seem to be asking appropriate questions today. Results & Data ([facility]) Vital Signs (Past 12 Hours) Vital Signs Temp Pulse Pulse Resp BP Pulse Ox 03/03/21 11:00 36.7 C 87 20 101/67 98 03/03/21 07:30 88 03/03/21 06:53 36.6 C 80 20 101/67 95 03/03/21 03:22 36.4 C L 93 H 20 104/91 95
--- NOTE | 2021-03-03 15:38 | Hospitalist Progress Note ---
Date of Service March 03, 2021 Assessment & Plan (1) Atrial fibrillation with RVR: Plan: Atrial fibrillation with RVR Syncopal episode Pulmonary hypertension Can not rule out PE -CXR: No acute process -Normal TSH -ECHO: Left ventricular cavity small. Severe concentric LVH. EF 50-55%. Right ventricle is severely dilated. Right ventricle systolic function is severely reduced. Left atrial size is normal. Right atrium is severely dilated. Aortic valve sclerosis moderate, without significant aortic valvular stenosis. Severe tricuspid regurgitation. Moderate pulmonary hypertension with estimated pulmonary artery pressure being 45 mmHg. -Continue IV heparin till INR is therapeutic Appreciate cardiology input Continue Coumadin Monitor INR: 1.3 IV amiodarone transition to PO Amiodarone 200mg BID Acute B/L DVT -POA Presumed PE --V/Q scan :Numerous bilateral perfusion defects with decreased tracer activity of the lung bases. These findings may be secondary to layering pleural effusions with bilateral pulmonary opacities as seen on the CT study from earlier today. The study is intermediate probability for pulmonary embolus. --Venous Doppler:On the left, and occlusive deep venous thrombosis seen in the posterior tibial vein. The anterior tibial vein is not seen. Intermittent flow is seen in the peroneal vein. On the right, there is a nonocclusive thrombus in the superficial femoral vein and nonocclusive thrombus in the popliteal vein. Intermittent flow is seen in the posterior tibial and peroneal veins. -Can not obtain CTA due to renal failure -Continue IV Heparin till INR is therapeutic -Continue Coumadin Pneumonia Likely due to aspiration -CT Chest:5.9 x 3 cm focus of dense consolidation within the right upper lobe suggestive of pneumonia. This contains a few lucencies which could reflect minimal cavitation or dilated airways. An underlying neoplastic process is considered unlikely however a follow-up chest CT in 3 months to ensure resolution is recommended. Small bilateral pleural effusions. Mildly dilated f luid-filled esophagus. -Blood Cx: Negative to date -Cefepime changed to Zosyn -Speech Eval completed -Consider Pulm eval if needed Continue Zosyn Added Doxy Appreciate Pulmonology Input Acute Kidney Injury on CKD III ? ATN Baseline Cr ~1.6 Cr:2.15>2.45>2.6>2.98 -CT ABD :The unenhanced kidneys are normal in size without hydronephrosis. There is no contour deforming renal mass lesion. No renal calculi are identified. Monitor renal function Avoid nephrotoxic agents as able Appreciate Nephrology Input Monitor volume status Not a candidate for dialysis Palliative care consulted to address goals of care B/L Adrenal enlargement Incidental finding on CT scan Needs further evaluation as outpatient Abnormal urine analysis UTI can not be ruled out Urine culture:Not confirmatory Likely contaminated sample Cefepime transitioned to Zosyn as above Chronic anemia Hb at baseline Monitor Dysphagia Mildly dilated fluid-filled esophagus on CT Aspiration precautions Speech eval Pureed diet for now May need GI eval if doesn't tolerate diet DVT Px: IV Heparin Coumadin Code Status Full Code Admission and Anticipated Discharge Date Admission Date: February 28, 2021 Subjective Patient is seen and examined at bedside Patient remains confused CT head showed no acute findings Updated patient's sister over the phone Was started on doxycycline for atypical coverage Patient unable to provide any history IV amiodarone discontinued Review of Systems Review of Systems: Unobtainable due to cognitive status Physical Exam Physical Exam: Physical Exam: Vitals signs as noted above General Appearance:Moderately built and nourished, no apparent distress Head: normocephalic, Atraumatic Eyes: normal inspection, EOMI Neck: supple, Trachea midline Respiratory/Chest: Coarse breath sounds, No accessory muscle use Cardiovascular:Irregular, No murmur Abdomen/GI:Soft, Non tender, Bowel sounds present Extremities/Musculoskeletal:normal inspection, B/L LE edema Neurologic/Psych:AAOX3, grossly no focal neurological deficits, +Hearing impairment Skin: normal color, warm Results & Data Results & Data ([facility]) Vital Signs (Past 12 Hours) Vital Signs Temp Pulse Pulse Resp BP Pulse Ox 03/03/21 11:00 36.7 C 87 20 101/67 98 03/03/21 07:30 88 03/03/21 06:53 36.6 C 80 20 101/67 95 Laboratory Results Short CBC 03/03/21 Range/Units 08:23 WBC 25.11 H (4.8-10.8) K/uL Hgb 12.6 (12.0-16.0) g/dL Hct 36.0 L (37-47) % Plt Count 89 L (130-400) K/uL BMP 03/03/21 08:23 Sodium 135 L Potassium 4.7 Chloride 103 Carbon Dioxide 20 L BUN 91 H Creatinine 2.98 H D Glucose 72 Calcium 8.0 L
[2021-03-03] MEDS: WARFARIN SOD 5 MG TAB PO SCH (17:11)
[2021-03-03] MEDS: AMIODARONE 200 MG TAB PO SCH (17:12)
[2021-03-04 00:37] LABS: Partial Thromboplastin Ratio 3.3
[2021-03-04 00:49] LABS: Partial Thromboplastin Time 87.7 Seconds (21.0-31.0)
[2021-03-04] MEDS: PANTOprazole 40 MG TAB PO SCH ×2 (05:43→07:47)
[2021-03-04] MEDS: PIPERACILLIN/TAZOBACTAM 3.375 GM in DEXTROSE 5% 100 ML IV SCH (05:48)
[2021-03-04] MEDS: HEPARIN SODIUM/DEXTROSE 25,000 UNITS/500 ML BAG IV SCH (05:49)
[2021-03-04] MEDS: AMIODARONE 200 MG TAB PO SCH (07:46)
[2021-03-04] MEDS: allopurinoL 100 MG TAB PO SCH (07:47)
[2021-03-04 08:23] LABS: INR 2.3 (0.9-1.1); Partial Thromboplastin Ratio 2.7; Prothrombin Time 21.8 Seconds (9.0-12.0)
[2021-03-04 08:28] LABS: Calcium 8.4 mg/dl (8.5-10.1); Creatinine Clr Calc Pharmacy 12.5 ml/min; Est GFR (African American) 15.2 ml/min; Est GFR (Non-African American) 13.1 ml/min
[2021-03-04 08:31] LABS: Partial Thromboplastin Time 69.8 Seconds (21.0-31.0)
[2021-03-04 08:45] LABS: Hematocrit (blood only) 35.3 % (37-47); Hemoglobin 12.1 g/dL (12.0-16.0); Mean Corpuscular Hemoglobin 33.3 pg (25-34); Mean Corpuscular Volume 97.2 fL (80-100); Mean Platelet Volume 10.6 fL (7.4-10.4); Platelet Count 110 K/uL (130-400); RDW Coefficient of Variation 16.6 % (11.5-14.5); Red Blood Count 3.63 M/uL (4.2-5.4); White Blood Count 20.94 K/uL (4.8-10.8)
[2021-03-04 09:11] LABS: Mean Corpuscular Hgb Conc 34.3 g/dL (32-36)
[2021-03-04] MEDS: DOXYCYCLINE HYCLATE 100 MG in DEXTROSE 5% 100 ML IV SCH (10:32)
--- NOTE | 2021-03-04 12:17 | Palliative Care Consultation ---
Date of Consultation March 04, 2021 Assessment & Plan (1) Palliative care encounter: I talked with the patients sister Hanane and her sister Pallavi on the phone at [phone]. We talked at length about her medical ailments and current hospitalization. They both agreed that since she has been admitted at [facility] that things have declined with her medically. Both sisters agree that she would not want aggressive measures taken if she were unable to return to a meaningful state of recovery. After full conversation, they decided that they would want to transition to a full comfort focused approach to her care. We discussed this in depth and confirmed that we would discontinue her heparin infusion and IV abx, and any other medications not focused on comfort. If she would not decline over the next few days, she would like her to transition home with hospice where her sister Melody Peace would be her caregiver who can be reached at [phone]. Due to her worsening kidney function, Dilaudid IV ordered for comfort to avoid opioid toxicity towards end of life. Additionally, I ordered Ativan and Robinul. I set expectation that patient likely has days to a week of life expectancy. Regarding visitation, I did discuss with Violette Hernandez network account manager, and Jeremiah Piper, [employer] internet and e business project manager to advise of allowing one visitor to rotate in and out for comfort focus end of life vistiation. The above was communicated with the hospitalist, RN, and disease case manager. Palliative Medicine will follow along. (2) Unresponsive episode: (3) DVT of lower extremity, bilateral: History of Present Illness Reason for Consultation: Goals of care Requesting Physician: Dr. Muñoz Attending Physician: Shravan Muñoz MD Allergies Allergy/AdvReac Type Severity Reaction Status Date / Time No Known Allergies Allergy Unknown Verified 02/27/21 21:38 Home Medications Medication Instructions Recorded Confirmed Type allopurinol 100 mg tablet 100 mg PO QAM 05/04/18 02/27/21 History clonidine HCl 0.1 mg tablet 0.1 mg PO QAM 05/04/18 02/27/21 History vit C,E,zinc,copper-[id number] 250 1 cap PO QAM 09/02/20 02/27/21 History mg-lutein 5 mg-zeaxanthin 1 mg capsule (Ocuvite Adult 50 Plus) ascorbic acid (vitamin C) 1,000 mg 1 g PO QAM 02/27/21 02/27/21 History tablet (Vitamin C) cyanocobalamin (vitamin B-12) 500 500 mcg PO QAM 02/27/21 02/27/21 History mcg tablet (Vitamin B-12) melatonin 3 mg tablet 3 mg PO HS PRN 02/27/21 02/27/21 History metoclopramide HCl 5 mg tablet 5 mg PO ACHS 02/27/21 02/27/21 History mirtazapine 15 mg tablet 15 mg PO HS 02/27/21 02/27/21 History omeprazole 40 mg capsule,delayed 40 mg PO DAILYBB 02/27/21 02/27/21 History release ondansetron HCl 4 mg tablet 4 mg PO Q6H PRN 02/27/21 02/27/21 History polyethylene glycol 3350 17 gram 17 g PO BID 02/27/21 02/27/21 History oral powder packet (Miralax) Patient History Medical History CKD (chronic kidney disease), stage III Dyslipidemia GI bleed Leg edema Palliative care encounter Poor historian SBO (small bowel obstruction) Surgical History History of abdominal surgery R/T GI BLEED History of [place] II operation History of cataract surgery RT History of cholecystectomy History of tooth extraction History of total knee replacement BL Family History Father Cancer Brother Heart disease Mother Hypertension Social History Smoking Status: Never smoker Second Hand Exposure: No; Hx Alcohol Use: No Hx Substance Use: No Preferred Language: Spanish Communication Ability: Effective Health Informatics Instructor Required: No Beliefs That Will Affect Care: None marital status: / Current Living Situation: Personal Care Facility current occupational status: retired How many Children do You have: 0 Other Information That Helps Us Care for You: No Feels Safe at Home: Yes Safety Concerns: Feels Safe At This Time Assistive Devices: None Review of Systems Review of Systems: [place] System Assessment Scale: Pain AD: 2/3 Anxiety AD: 1/3 Tiredness AD: 1/3 Shortness of breath AD: 1/3 Palliative Performance Scale: 20% Physical Exam Constitutional: + acute distress, + altered mental status and + frail appearing ENMT: Mouth: + dry oral mucous membranes Respiratory: normal respiratory effort Auscultation: + diminished lung sounds Cardiovascular: Rate/Rhythm: regular rate and regular rhythm Heart Sounds: normal S1 and normal S2 Extremities: normal capillary refill Gastrointestinal (Abdomen): Inspection/Auscultation: abdomen normal to inspection Skin: + dry skin and + pallor Psychiatric: Orientation: alert; + not oriented x 3 Insight: + impaired insight Judgement: + impaired judgement Results & Data ([facility]) Vital Signs (Past 12 Hours) Vital Signs Temp Pulse Pulse Pulse Resp BP Pulse Ox 03/04/21 08:26 36.5 C 80 18 90/63 L 99 03/04/21 08:00 90 03/04/21 04:00 36.6 C 102 H 20 105/72 96 03/04/21 00:56 36.2 C L 03/04/21 00:30 35.7 C L 89 20 97/61 L 98 PG Care Time/CCT Total # of Minutes Spent Total Time Spent with Patient: Total time spent is greater than 50% in coordination of care (as documented) at patient's floor/unit and/or counseling patient: 100 minutes with > 50% of that time spent assessing the patient, discussing goals of care with family and collaborating with IDT. Coding Level of Care Code 08669 Inpt Consult Level 3 Diagnoses Palliative care encounter Z51.5 Unresponsive episode R41.89 DVT of lower extremity, bilateral I82.403 Time Spent (min) 100
--- NOTE | 2021-03-04 13:57 | Cardiology Progress Note ---
Date of Service March 04, 2021 Assessment & Plan (1) Atrial fibrillation with RVR: (2) Unresponsive episode: (3) TIFFANY (acute kidney injury): (4) Pulmonary hypertension: (5) DVT of lower extremity, bilateral: Plan: Lower extremity venous Doppler study positive for bilateral DVT, which correlates well with the clinical suspicion of venous thrombotic event with acute RV strain on echocardiogram, pulmonary perfusion defects on nuclear medicine imaging. CT angiogram not performed due to acute kidney injury. Chest CT notable for a 5.9 x 3 cm dense consolidation of the right upper lobe consistent with pneumonia. Small bilateral pleural effusions noted. Creatinine increased to 2.98 mg /dl on 03/03, up to 3.15 today, 03/04/2021. Platelet count improved to 110 today.. Prognosis is poor with declining mental status, severe RV dysfunction. The images of the echocardiogram obtained on 02/28/2021 were reviewed independently. Her most recent prior echocardiogram dates back to 2011. At which time normal right ventricular chamber size and systolic function were described. The right ventricle is severely dilated, with severe RV hypokinesis that spares the RV apex, and is characteristic for the RV strain related to pulmonary embolism. The left heart and comparison is small, and underfilled. Prognosis is poor with multiorgan system compromise. I think palliative care may be the most appropriate next step. Dr Muñoz to discuss with family. Admission and Anticipated Discharge Date Admission Date: February 28, 2021 Subjective Patient seen in cardiology follow-up. She continues to decline clinically. Her mental status seems to be a bit better 2 days ago, worse yesterday, and today, she is unable to tell me what her "favorite color "is. Telemetry reveals significant artifact, but appears to be sinus rhythm. Review of Systems Review of Systems: Unobtainable due to reduced consciousness Physical Exam Physical Exam: Temp Pulse Resp BP Pulse Ox 36.5 C 80 18 90/63 L 99 03/04/21 08:03/04/21 08:26 03/04/21 08:03/04/21 08:03/04/21 08:26 Constitutional: + ill appearing and + frail appearing Respiratory: Decreased breath sounds bilaterally at the bases Cardiovascular: Rate/Rhythm: regular rate Heart Sounds: no murmur Extremities: no edema Results & Data ([facility]) Vital Signs (Past 12 Hours) Vital Signs Temp Pulse Pulse Pulse Resp BP Pulse Ox 03/04/21 08:26 36.5 C 80 18 90/63 L 99 03/04/21 08:00 90 03/04/21 04:00 36.6 C 102 H 20 105/72 96
--- NOTE | 2021-03-04 15:00 | Nephrology Progress Note ---
Date of Service March 04, 2021 Assessment & Plan (1) TIFFANY (acute kidney injury): Plan: Creatinine was 2.37 on admission, it has been slowly creeping up to 3.2 today Likely 2/2 hemodynamic changes with bilateral pulmonary embolism, deep venous thrombosis, atrial fibrillation with rapid ventricular response and hypotension prior to hospitalization. some concerns about preload dependence on presentation w/ acute RV strain and thus no diuretics at all this admission > with lower and lower bp, worsening creatinine > trial of diuretic gentle making about a liter of urine daily past 48 hrs but overall 7.5L positive on the admission to date -recommend lasix and albumin tid 10 mg IV tid -will hold off on FR for now -encourage protein intake -cont daily bmp, strict I/O; daily weight Palliative consult recs noted > no intensification of care planned (2) Atrial fibrillation with RVR: Admission and Anticipated Discharge Date Admission Date: February 28, 2021 Subjective no interval events. remains confused. denies musculoskeletal pain or dyspnea or orthopnea Review of Systems Review of Systems: Unobtainable due to cognitive status Physical Exam Constitutional: well developed, + altered mental status and + frail appearing; no acute distress Eyes: EOM intact bilaterally ENMT: Ears: no external ear abnormality Nose: no external nose abnormality Mouth: + dry oral mucous membranes Neck: no nuchal rigidity Respiratory: normal respiratory effort Auscultation: + diminished lung sounds Cardiovascular: Rate/Rhythm: regular rate and regular rhythm Extremities: + edema (1-2+) Gastrointestinal (Abdomen): Inspection/Auscultation: normal bowel sounds Percussion/Palpation: abdomen soft; abdomen nontender Musculoskeletal: Extremities: strength 5/5 throughout Skin: no rashes, warm and dry Neurologic: aguilar, fluent speech, no tremor Genitourinary: lucero w/ ample urine Results & Data ([facility]) Vital Signs (Past 12 Hours) Vital Signs Temp Pulse Pulse Pulse Resp BP Pulse Ox 03/04/21 08:26 36.5 C 80 18 90/63 L 99 03/04/21 08:00 90 03/04/21 04:00 36.6 C 102 H 20 105/72 96 Laboratory Results 03/04/21 08:31 03/04/21 07:28
[2021-03-04] MEDS ORDERED: GLYCOPYRROLATE 0.2 MG/ML VIAL IV PRN (15:21)
--- NOTE | 2021-03-04 15:29 | Hospitalist Progress Note ---
Date of Service March 04, 2021 Assessment & Plan (1) Atrial fibrillation with RVR: Plan: Atrial fibrillation with RVR Syncopal episode Pulmonary hypertension Can not rule out PE -CXR: No acute process -Normal TSH -ECHO: Left ventricular cavity small. Severe concentric LVH. EF 50-55%. Right ventricle is severely dilated. Right ventricle systolic function is severely reduced. Left atrial size is normal. Right atrium is severely dilated. Aortic valve sclerosis moderate, without significant aortic valvular stenosis. Severe tricuspid regurgitation. Moderate pulmonary hypertension with estimated pulmonary artery pressure being 45 mmHg. -IV heparin, Coumadin, Amiodarone discontinued Transitioned to comfort measures as per family's request given poor prognosis Appreciate palliative care input Acute B/L DVT -POA Presumed PE --V/Q scan :Numerous bilateral perfusion defects with decreased tracer activity of the lung bases. These findings may be secondary to layering pleural effusions with bilateral pulmonary opacities as seen on the CT study from earlier today. The study is intermediate probability for pulmonary embolus. --Venous Doppler:On the left, and occlusive deep venous thrombosis seen in the posterior tibial vein. The anterior tibial vein is not seen. Intermittent flow is seen in the peroneal vein. On the right, there is a nonocclusive thrombus in the superficial femoral vein and nonocclusive thrombus in the popliteal vein. Intermittent flow is seen in the posterior tibial and peroneal veins. -Can not obtain CTA due to renal failure -IV Heparin, Coumadin DCed Pneumonia Likely due to aspiration -CT Chest:5.9 x 3 cm focus of dense consolidation within the right upper lobe suggestive of pneumonia. This contains a few lucencies which could reflect minimal cavitation or dilated airways. An underlying neoplastic process is considered unlikely however a follow-up chest CT in 3 months to ensure resolution is recommended. Small bilateral pleural effusions. Mildly dilated fluid-filled esophagus. -Blood Cx: Negative to date -Speech Eval completed Appreciate Pulmonology Input Antibiotics discontinued Acute Kidney Injury on CKD III ? ATN Baseline Cr ~1.6 Cr:2.15>2.45>2.6>2.98 -CT ABD :The unenhanced kidneys are normal in size without hydronephrosis. There is no contour deforming renal mass lesion. No renal calculi are identified. Monitor renal function Avoid nephrotoxic agents as able Appreciate Nephrology Input Monitor volume status Not a candidate for dialysis Appreciate palliative care input B/L Adrenal enlargement Incidental finding on CT scan Abnormal urine analysis UTI can not be ruled out Urine culture:Not confirmatory Likely contaminated sample Chronic anemia Hb at baseline Monitor Dysphagia Mildly dilated fluid-filled esophagus on CT Aspiration precautions Speech eval Pureed diet DVT Px: Was IV Heparin, Coumadin Code Status DNI/DNR On comfort measures only Admission and Anticipated Discharge Date Admission Date: February 28, 2021 Subjective Patient is seen and examined at bedside Remains confused and agitated intermittently Discussed with patient's family, cardiology and nephrology Family prefers patient to be transition to comfort measures Appreciate palliative care input Review of Systems Review of Systems: Unobtainable due to cognitive status Physical Exam Physical Exam: Physical Exam: Vitals signs as noted above General Appearance:Moderately built and nourished, no apparent distress, confused Head: normocephalic, Atraumatic Eyes: normal inspection, EOMI Neck: supple, Trachea midline Respiratory/Chest: Coarse breath sounds, No accessory muscle use Cardiovascular:Irregular, No murmur Abdomen/GI:Soft, Non tender, Bowel sounds present Extremities/Musculoskeletal:normal inspection, B/L LE edema Neurologic/Psych:grossly no focal neurological deficits, +Hearing impairment, confused Skin: normal color, warm Results & Data Results & Data ([facility]) Vital Signs (Past 12 Hours) Vital Signs Temp Pulse Pulse Pulse Resp BP Pulse Ox 03/04/21 08:26 36.5 C 80 18 90/63 L 99 03/04/21 08:00 90 03/04/21 04:00 36.6 C 102 H 20 105/72 96 Laboratory Results Short CBC 03/04/21 03/04/21 Range/Units 07:28 08:31 WBC Cancelled 20.94 H Hgb Cancelled 12.1 Hct Cancelled 35.3 L Plt Count Cancelled 110 L BMP 03/04/21 07:28 Sodium 133 L Potassium 5.0 Chloride 103 Carbon Dioxide 17 L BUN 91 H Creatinine 3.15 H Glucose 74 Calcium 8.4 L
[2021-03-04] MEDS ORDERED: ALBUMIN 25% 12.5 GM/50 ML VIAL IV ONE (15:33)
[2021-03-04] MEDS: LORazepam 0.5 MG/1 ML VIAL IV PRN ×2 (16:00→20:27)
[2021-03-04] MEDS: HYDROmorphone INJ 0.5 MG/0.5 ML SYR IV PRN ×2 (16:00→20:24)
[2021-03-04] MEDS ORDERED: WARFARIN SOD 2.5 MG TAB PO SCH (16:00)
[2021-03-04 16:11] LABS: Partial Thromboplastin Ratio 3.1
[2021-03-04 16:13] LABS: Partial Thromboplastin Time 80.9 Seconds (21.0-31.0)
--- NOTE | 2021-03-04 17:15 | Pulmonology Progress Note ---
Date of Service March 04, 2021 Assessment & Plan (1) Abnormal chest CT: (2) Pulmonary hypertension: (3) DVT of lower extremity, bilateral: Plan: CT chest 03/01/2021 personally reviewed: 3 x 6 cm right apical lobe consolidative process appreciated Bilateral pleural effusion Dilated esophagus No mediastinal lymphadenopathy VQ scan: Only perfusion images show some defect bilaterally especially at the bases. Intermediate probability --Abnormal chest CT Likely represents right upper lobe consolidative process Treat as if the patient has pneumonia with antibiotics Possibility of cancer is there was low in the differential COVID-19 PCR negative Procalcitonin 1.[address] chest in 8 weeks --Acute DVT Bilateral lower extremity --Pulmonary hypertension PASP 45 mmHg Severely reduced RV function Acute PE is high in the differential given acute DVT Plan: In/out: +7 L since coming to the hospital Continue with antibiotics for 10 days. Atypical coverage for [address] chest without contrast in 8 weeks Palliative care is following the case No further recommendation from pulmonary perspective. Will sign off Please call directly with any questions. Please note the above document was generated using voice recognition software. It may contain grammatical, syntax or spelling errors.Any formal questions or concerns about the content, text or information contained within the body of this dictation should be directly addressed to the provider for clarification. Admission and Anticipated Discharge Date Admission Date: February 28, 2021 Subjective Patient seen and evaluated bedside. No acute distress, no adverse events overnight. Denies any chest pain Denies any back pain Review of Systems Review of Systems: Unobtainable due to mental health condition Physical Exam Physical Exam: Constitutional: No acute distress HEENT: EOMI, PERRLA, arcus senilis bilaterally Respiratory system: Decreased air entry bilaterally, no wheeze, rhonchi, positive crackles bilateral lower lobes as well as right upper anteriorly CVS: S1-S2 positive, no murmurs or gallops Abdomen: Soft, nontender, nondistended, positive bowel sounds x4 Extremities: +2 pulses bilaterally radialis/ dorsalis pedis, no cyanosis, +2 pitting edema bilateral lower extremity Neuro: Awake alert oriented to self Psych: Restless mood and affect G/U: Positive Segura Skin: no rashes, warm and dry Lymphatic: no cervical or axillary lymphadenopathy Results & Data Results & Data ([facility]) Vital Signs (Past 12 Hours) Vital Signs Temp Pulse Pulse Resp BP Pulse Ox 03/04/21 08:26 36.5 C 80 18 90/63 L 99 03/04/21 08:00 90 03/04/21 08:31 03/04/21 07:28 PG Care Time/CCT Total # of Minutes Spent Total Time Spent with Patient: Total time spent is greater than 50% in coordination of care (as documented) at patient's floor/unit and/or counseling patient: Coding Level of Care Code 17705 Subseq Hosp Care Lvl [address] R93.89 Pulmonary hypertension I27.20 DVT of lower extremity, bilateral I82.403
[2021-03-04] MEDS ORDERED: FUROSEMIDE 10 MG in SYRINGE 0 ML IV SCH (21:00)
[2021-03-05] MEDS: HYDROmorphone INJ 0.5 MG/0.5 ML SYR IV PRN ×2 (01:46→06:31)
[2021-03-05] MEDS: LORazepam 0.5 MG/1 ML VIAL IV PRN ×2 (01:48→06:31)
--- NOTE | 2021-03-05 10:37 | Palliative Care Progress Note ---
Date of Service March 05, 2021 Assessment & Plan (1) Palliative care encounter: Plan: I met with the patients sister and POA, Hanane, at her bedside. All questions answered. She has been visiting for the past 45 minutes and stated that Bette has not made any meaningful interaction with her since she has arrived. She appears more comfortable than when I visited with her yesterday. She, overnight, did have some periods of yelling out. I set expectation that she likely has hours to a day or two of life expectancy. Hanane mentioned that her generation mechanic helper, Lauren Antoine, plans to come for visitation tomorrow. This was communicated to Marysol Porras the RN power plant supervisor on the unit. Palliative Medicine will follow for symptom management and additional support to family. (2) Agitation: Plan: Patient with intermittent delirium. Patient now obtunded. She has Ativan 0.5 mg ordered Q4 PRN. She has utilized FOUR doses over the past 24 hours. (3) Pain: Plan: Patient has Dilaudid 0.2 mg IV Q4 PRN ordered for pain/agitation. Patient with renal failure, so avoiding Morphine agents. Patient has utilized FOUR doses over the past 24 hours. (4) Terminal respiratory secretions: Plan: Patient has Glycopyrrolate ordered for terminal secretions. Will monitor for use. Admission and Anticipated Discharge Date Admission Date: February 28, 2021 Subjective Patient evaluated at bedside in room 258. Bette's sister, Hanane was at her bedside. She is obtunded and unable to follow commands. She appears very comfortable. See A/P for further details. Review of Systems Review of Systems: [place] System Assessment Scale: Pain AD: 1/3 Anxiety AD: 0/3 Palliative Performance Scale: 10% Physical Exam Constitutional: + frail appearing and comfortable ENMT: Mouth: + dry oral mucous membranes Respiratory: normal respiratory effort Auscultation: + diminished lung sounds Cardiovascular: Rate/Rhythm: regular rate and regular rhythm Heart Sounds: normal S1 and normal S2 Extremities: normal capillary refill Gastrointestinal (Abdomen): Inspection/Auscultation: abdomen normal to inspection Skin: + dry skin and + pallor Neurologic: + obtunded PG Care Time/CCT Total # of Minutes Spent Total Time Spent with Patient: Total time spent is greater than 50% in coordination of care (as documented) at patient's floor/unit and/or counseling patient: 35 minutes with > 50% of that time spent assessing the patient, discussing goals of care with patients family, addressing symptom management and collaborating with IDT Coding Level of Care Code 92078 Subseq Hosp Care Lvl 3 Diagnoses Palliative care encounter Z51.5 Agitation R45.1 Pain R52 Terminal respiratory secretions R09.89 Time Spent (min) 35
--- NOTE | 2021-03-05 11:23 | Cardiology Progress Note ---
Date of Service March 05, 2021 Assessment & Plan (1) Atrial fibrillation with RVR: (2) Unresponsive episode: (3) TIFFANY (acute kidney injury): (4) Pulmonary hypertension: (5) DVT of lower extremity, bilateral: Plan: Lower extremity venous Doppler study positive for bilateral DVT, which correlates well with the clinical suspicion of venous thrombotic event with acute RV strain on echocardiogram, pulmonary perfusion defects on nuclear medicine imaging. CT angiogram not performed due to acute kidney injury. Chest CT notable for a 5.9 x 3 cm dense consolidation of the right upper lobe consistent with pneumonia. Small bilateral pleural effusions noted. Prognosis is poor with multiorgan system compromise. Patient has been transitioned to comfort care, which I believe is appripriate. Admission and Anticipated Discharge Date Admission Date: February 28, 2021 Subjective Patient seen in follow-up,sister at the bedside. Pt is somnolent, comfortable. Review of Systems Review of Systems: Unobtainable due to reduced consciousness Physical Exam Physical Exam: Temp Pulse Resp BP Pulse Ox 36.5 C 80 18 90/63 L 99 03/04/21 08:26 03/04/21 08:26 03/04/21 08:26 03/04/21 08:26 03/04/21 08:26 Respiratory: Shallow breaths Cardiovascular: Rate/Rhythm: regular rate Heart Sounds: no murmur Extremities: no edema
--- NOTE | 2021-03-05 16:31 | Hospitalist Progress Note ---
Date of Service March 05, 2021 Assessment & Plan (1) Atrial fibrillation with RVR: Plan: Atrial fibrillation with RVR Syncopal episode Pulmonary hypertension Can not rule out PE -CXR: No acute process -Normal TSH -ECHO: Left ventricular cavity small. Severe concentric LVH. EF 50-55%. Right ventricle is severely dilated. Right ventricle systolic function is severely reduced. Left atrial size is normal. Right atrium is severely dilated. Aortic valve sclerosis moderate, without significant aortic valvular stenosis. Severe tricuspid regurgitation. Moderate pulmonary hypertension with estimated pulmonary artery pressure being 45 mmHg. -IV heparin, Coumadin, Amiodarone discontinued Transitioned to comfort measures as per family's request given poor prognosis Appreciate palliative care input No distress on exam Continue comfort measures Acute B/L DVT -POA Presumed PE --V/Q scan :Numerous bilateral perfusion defects with decreased tracer activity of the lung bases. These findings may be secondary to layering pleural effusions with bilateral pulmonary opacities as seen on the CT study from earlier today. The study is intermediate probability for pulmonary embolus. --Venous Doppler:On the left, and occlusive deep venous thrombosis seen in the posterior tibial vein. The anterior tibial vein is not seen. Intermittent flow is seen in the peroneal vein. On the right, there is a nonocclusive thrombus in the superficial femoral vein and nonocclusive thrombus in the popliteal vein. Intermittent flow is seen in the posterior tibial and peroneal veins. -Can not obtain CTA due to renal failure -IV Heparin, Coumadin DCed Pneumonia Likely due to aspiration -CT Chest:5.9 x 3 cm focus of dense consolidation within the right upper lobe suggestive of pneumonia. This contains a few lucencies which could reflect minimal cavitation or dilated airways. An underlying neoplastic process is considered unlikely however a follow-up chest CT in 3 months to ensure resolution is recommended. Small bilateral pleural effusions. Mildly dilated fluid-filled esophagus. -Blood Cx: Negative to date -Speech Eval completed Appreciate Pulmonology Input Antibiotics discontinued Acute Kidney Injury on CKD III ? ATN Baseline Cr ~1.6 Cr:2.15>2.45>2.6>2.98 -CT ABD :The unenhanced kidneys are normal in size without hydronephrosis. There is no contour deforming renal mass lesion. No renal calculi are identified. Monitor renal function Avoid nephrotoxic agents as able Appreciate Nephrology Input Monitor volume status Not a candidate for dialysis Appreciate palliative care input B/L Adrenal enlargement Incidental finding on CT scan Abnormal urine analysis UTI can not be ruled out Urine culture:Not confirmatory Likely contaminated sample Chronic anemia Hb at baseline Monitor Dysphagia Mildly dilated fluid-filled esophagus on CT Aspiration precautions Speech eval Pureed diet DVT Px: Was on IV Heparin, Coumadin Code Status DNI/DNR On comfort measures only Admission and Anticipated Discharge Date Admission Date: February 28, 2021 Subjective Patient is seen and examined bedside No distress on exam Currently on comfort measures only Opens eyes on calling her name Unable to provide any history Review of Systems Review of Systems: Unobtainable due to reduced consciousness Physical Exam Physical Exam: Physical Exam: Vitals signs as noted above General Appearance:Moderately built and nourished, no apparent distress, drowsy Head: normocephalic, Atraumatic Eyes: normal inspection, EOMI Neck: supple, Trachea midline Respiratory/Chest: Coarse breath sounds, No accessory muscle use Cardiovascular:Irregular, No murmur Abdomen/GI:Soft, Non tender, Bowel sounds present Extremities/Musculoskeletal:normal inspection, B/L LE edema Neurologic/Psych:Unable to provide complete neurological exam Skin: normal color, warm Results & Data Results & Data ([facility]) Vital Signs (Past 12 Hours) Vital Signs Pulse Resp 03/05/21 08:00 102 H 12
[2021-03-06] MEDS ORDERED: LORazepam 0.5 MG TAB SL PRN (01:05)
[2021-03-06] MEDS: MoRPHine SULFATE 5 MG/0.25 ML UDP SL PRN ×2 (01:20→04:14)
[2021-03-06] MEDS: SCOPOLAMINE 1 MG TDSY TD SCH (05:22)
[2021-03-06] MEDS: CHECK SCOPOLAMINE PATCH PLACEMENT SCH ×2 (08:03→15:19)
--- NOTE | 2021-03-06 11:10 | Palliative Care Progress Note ---
Date of Service March 06, 2021 Assessment & Plan (1) Pain: Plan: Given renal failure, will rotate opioid to oxycodone with no IV access. Discontinue morphine. (2) Terminal respiratory secretions: Plan: On scopolamine patch, no audible secretions. (3) Palliative care encounter: Plan: Focus of care is comfort only. Called both sisters to update, but no answer. (4) Pulmonary hypertension: (5) Atrial fibrillation with RVR: (6) TIFFANY (acute kidney injury): Admission and Anticipated Discharge Date Admission Date: February 28, 2021 Subjective Lethargic but arouses briefly. Not able to answer any questions. Facial grimace noted. IV access lost overnight. Roxanol ordered and she has had two doses (10 OME) overnight. She was also started on scopolamine for moist cough. Review of Systems Review of Systems: Unobtainable due to reduced consciousness [place] Symptom Assessment Scale Pain 1/3 by observation Dyspnea 1/3 by observation Drowsiness 2/3 Palliative Performance Score 20% Physical Exam Constitutional: + lethargic ENMT: Mouth: + dry oral mucous membranes Respiratory: + uses accessory muscles Cardiovascular: Extremities: + edema Gastrointestinal (Abdomen): soft, nontender Skin: vascular skin changes PG Care Time/CCT Total # of Minutes Spent Total Time Spent: 25 Total Time Spent with Patient: Total time spent is greater than 50% in coordination of care (as documented) at patient's floor/unit and/or counseling patient: symptom management Coding Level of Care Code 10567 Subseq Hosp Care Lvl 2 Diagnoses Pain R52 Terminal respiratory secretions R09.89 Palliative care encounter Z51.5 Pulmonary hypertension I27.20 Atrial fibrillation with RVR I48.91 TIFFANY (acute kidney injury) N17.9
--- NOTE | 2021-03-06 12:49 | Hospitalist Progress Note ---
Date of Service March 06, 2021 Assessment & Plan (1) Atrial fibrillation with RVR: Plan: Atrial fibrillation with RVR Syncopal episode Pulmonary hypertension Can not rule out PE -CXR: No acute process -Normal TSH -ECHO: Left ventricular cavity small. Severe concentric LVH. EF 50-55%. Right ventricle is severely dilated. Right ventricle systolic function is severely reduced. Left atrial size is normal. Right atrium is severely dilated. Aortic valve sclerosis moderate, without significant aortic valvular stenosis. Severe tricuspid regurgitation. Moderate pulmonary hypertension with estimated pulmonary artery pressure being 45 mmHg. -IV heparin, Coumadin, Amiodarone discontinued Transitioned to comfort measures as per family's request given poor prognosis Appreciate palliative care input No distress on exam Continue comfort measures Acute B/L DVT -POA Presumed PE --V/Q scan :Numerous bilateral perfusion defects with decreased tracer activity of the lung bases. These findings may be secondary to layering pleural effusions with bilateral pulmonary opacities as seen on the CT study from earlier today. The study is intermediate probability for pulmonary embolus. --Venous Doppler:On the left, and occlusive deep venous thrombosis seen in the posterior tibial vein. The anterior tibial vein is not seen. Intermittent flow is seen in the peroneal vein. On the right, there is a nonocclusive thrombus in the superficial femoral vein and nonocclusive thrombus in the popliteal vein. Intermittent flow is seen in the posterior tibial and peroneal veins. -Can not obtain CTA due to renal failure -IV Heparin, Coumadin DCed Pneumonia Likely due to aspiration -CT Chest:5.9 x 3 cm focus of dense consolidation within the right upper lobe suggestive of pneumonia. This contains a few lucencies which could reflect minimal cavitation or dilated airways. An underlying neoplastic process is considered unlikely however a follow-up chest CT in 3 months to ensure r esolution is recommended. Small bilateral pleural effusions. Mildly dilated fluid-filled esophagus. -Blood Cx: Negative to date -Speech Eval completed Appreciate Pulmonology Input Antibiotics discontinued Acute Kidney Injury on CKD III ? ATN Baseline Cr ~1.6 Cr:2.15>2.45>2.6>2.98 -CT ABD :The unenhanced kidneys are normal in size without hydronephrosis. There is no contour deforming renal mass lesion. No renal calculi are identified. Monitor renal function Avoid nephrotoxic agents as able Appreciate Nephrology Input Monitor volume status Not a candidate for dialysis Appreciate palliative care input B/L Adrenal enlargement Incidental finding on CT scan Abnormal urine analysis UTI can not be ruled out Urine culture:Not confirmatory Likely contaminated sample Chronic anemia Hb at baseline Monitor Dysphagia Mildly dilated fluid-filled esophagus on CT Aspiration precautions Speech eval Pureed diet DVT Px: Was on IV Heparin, Coumadin Code Status DNI/DNR On comfort measures only Admission and Anticipated Discharge Date Admission Date: February 28, 2021 Subjective Patient seen in follow-up of multiple problems, currently on comfort care Laying in bed in no acute distress Opens her eyes to voice however not able to answer any questions Followed by palliative medicine - Roxanol ordered and she has had two doses (10 OME) overnight. She was also started on scopolamine for moist cough. Review of Systems Review of Systems: All systems reviewed & are unremarkable except as noted in Subjective Physical Exam Physical Exam: General Appearance:Moderately built and nourished, no apparent distress, drowsy Head: normocephalic, Atraumatic Eyes: normal inspection, EOMI Neck: supple, Trachea midline Respiratory/Chest: Coarse breath sounds, No accessory muscle use Cardiovascular:Irregular, No murmur Abdomen/GI:Soft, Non tender, Bowel sounds present Extremities/Musculoskeletal:normal inspection, + B/L LE edema Neurologic/Psych: Somnolent, opens her eyes to voice, does not answer questions, does not follow commands Skin: normal color, warm Results & Data Results & Data ([facility]) Medications Administered Current Inpatient Medications Acetaminophen (Acetaminophen 325 Mg Tab) 650 mg PO Q4H PRN PRN Reason: Pain or Fever Stop: 03/30/21 03:36 Hydromorphone HCl (Hydromorphone Inj 0.5 Mg/0.5 Ml Syr) 0.2 mg IV Q4H PRN PRN Reason: Pain Stop: 03/18/21 15:19 Last Admin: 03/05/21 06:31 Dose: 0.2 mg Documented by: Lorazepam (Ativan) 0.5 mg in 1 mls @ 1 mls/min IV Q4H PRN PRN Reason: Agitation Stop: 04/03/21 15:19 Last Admin: 03/05/21 06:31 Dose: 1 mls/min Documented by: Lorazepam (Lorazepam 0.5 Mg Tab) 0.5 mg SL Q4H PRN PRN Reason: Anxiety/Agitation Stop: 04/05/21 01:04 Miscellaneous (Check Scopolamine Patch Placement) 1 ea N/A QS IRENE Stop: 04/05/21 07:59 Last Admin: 03/06/21 15:19 Dose: 1 ea Documented by: Miscellaneous (Remove Transderm-Scop Patch) 1 ea N/A Q72H IRENE Stop: 04/05/21 04:14 Last Admin: 03/06/21 05:29 Dose: Not Given Documented by: Oxycodone HCl (Oxycodone Hcl 5 Mg/0.25 Ml Udp) 5 mg PO Q3H PRN PRN Reason: Pain or shortness of breath Stop: 03/20/21 10:52 Last Admin: 03/06/21 11:49 Dose: 5 mg Documented by: Scopolamine (Scopolamine 1 Mg Tdsy) 1 mg TD Q72H IRENE Stop: 04/05/21 04:14 Last Admin: 03/06/21 05:22 Dose: 1 mg Documented by:
[2021-03-07] MEDS: CHECK SCOPOLAMINE PATCH PLACEMENT SCH ×3 (07:17→16:33)
--- NOTE | 2021-03-07 13:18 | Palliative Care Progress Note ---
Date of Service March 07, 2021 Assessment & Plan (1) Pain: Plan: She appears to be resting more comfortably today. Will order oxycodone routine dosing to maintain comfort. (2) Terminal respiratory secretions: Plan: Not audible with scopolamine patch (3) Palliative care encounter: Plan: She appears to be within a day or two of her dying time. Called Hanane to update. Per her , she is getting covid booster shot today. (4) TIFFANY (acute kidney injury): (5) Atrial fibrillation with RVR: (6) Pulmonary hypertension: Admission and Anticipated Discharge Date Admission Date: February 28, 2021 Subjective Does not respond to voice or touch. Appears comfortable. She has had 30mg OME in oxycodone dosing in the last 24 hours. Review of Systems Review of Systems: Unobtainable due to reduced consciousness [place] Symptom Assessment Scale Pain by observation 0/3 Dyspnea by observation 0/3 Palliative Performance Score 10% Physical Exam Constitutional: no acute distress ENMT: Mouth: + dry oral mucous membranes Respiratory: + uses accessory muscles; no respiratory distress no audible rhonchi Cardiovascular: Extremities: no edema no mottling Neurologic: + obtunded PG Care Time/CCT Total # of Minutes Spent Total Time Spent with Patient: Total time spent is greater than 50% in coordination of care (as documented) at patient's floor/unit and/or counseling patient: Coding Level of Care Code 09587 Subseq Hosp Care Lvl 2 Diagnoses Pain R52 Terminal respiratory secretions R09.89 Palliative care encounter Z51.5 TIFFANY (acute kidney injury) N17.9 Atrial fibrillation with RVR I48.91 Pulmonary hypertension I27.20
--- NOTE | 2021-03-07 17:58 | Hospitalist Progress Note ---
Date of Service March 07, 2021 Assessment & Plan (1) Atrial fibrillation with RVR: Plan: Atrial fibrillation with RVR Syncopal episode Pulmonary hypertension Can not rule out PE -CXR: No acute process -Normal TSH -ECHO: Left ventricular cavity small. Severe concentric LVH. EF 50-55%. Right ventricle is severely dilated. Right ventricle systolic function is severely reduced. Left atrial size is normal. Right atrium is severely dilated. Aortic valve sclerosis moderate, without significant aortic valvular stenosis. Severe tricuspid regurgitation. Moderate pulmonary hypertension with estimated pulmonary artery pressure being 45 mmHg. -IV heparin, Coumadin, Amiodarone discontinued Transitioned to comfort measures as per family's request given poor prognosis Appreciate palliative care input No distress on exam Continue comfort measures Acute B/L DVT -POA Presumed PE --V/Q scan :Numerous bilateral perfusion defects with decreased tracer activity of the lung bases. These findings may be secondary to layering pleural effusions with bilateral pulmonary opacities as seen on the CT study from earlier today. The study is intermediate probability for pulmonary embolus. --Venous Doppler:On the left, and occlusive deep venous thrombosis seen in the posterior tibial vein. The anterior tibial vein is not seen. Intermittent flow is seen in the peroneal vein. On the right, there is a nonocclusive thrombus in the superficial femoral vein and nonocclusive thrombus in the popliteal vein. Intermittent flow is seen in the posterior tibial and peroneal veins. -Can not obtain CTA due to renal failure -IV Heparin, Coumadin DCed Pneumonia Likely due to aspiration -CT Chest:5.9 x 3 cm focus of dense consolidation within the right upper lobe suggestive of pneumonia. This contains a few lucencies which could reflect minimal cavitation or dilated airways. An underlying neoplastic process is considered unlikely however a follow-up chest CT in 3 months to ensure resolution is recommended. Small bilateral pleural effusions. Mildly dilated fluid-filled esophagus. -Blood Cx: Negative to date -Speech Eval completed Appreciate Pulmonology Input Antibiotics discontinued Acute Kidney Injury on CKD III ? ATN Baseline Cr ~1.6 Cr:2.15>2.45>2.6>2.98 -CT ABD :The unenhanced kidneys are normal in size without hydronephrosis. There is no contour deforming renal mass lesion. No renal calculi are identified. Monitor renal function Avoid nephrotoxic agents as able Appreciate Nephrology Input Monitored volume status Not a candidate for dialysis Appreciate palliative care input B/L Adrenal enlargement Incidental finding on CT scan Abnormal urine analysis UTI can not be ruled out Urine culture:Not confirmatory Likely contaminated sample Chronic anemia Hb at baseline Monitor Dysphagia Mildly dilated fluid-filled esophagus on CT Aspiration precautions Speech eval Pureed diet DVT Px: Was on IV Heparin, Coumadin Code Status DNI/DNR On comfort measures only Admission and Anticipated Discharge Date Admission Date: February 28, 2021 Subjective Patient seen in follow-up of multiple problems, currently on comfort care Laying in bed in no acute distress Today does not respond to voice or touch stimuli Followed by palliative medicine Review of Systems Review of Systems: All systems reviewed & are unremarkable except as noted in Subjective Physical Exam Physical Exam: General Appearance: Moderately built and nourished, appears comfortable, not responsive to voice or touch Head: normocephalic, Atraumatic Neck: normal to inspection Respiratory/Chest: No accessory muscle use, no significant rhonchi or crackles noted anteriorly Cardiovascular:Irregular, No murmur Abdomen/GI:Soft, sluggish sounds present Extremities/Musculoskeletal: + B/L LE and UE edema Neurologic/Psych: not responsive to voice or touch Skin: normal color, warm Results & Data Results & Data ([facility]) Medications Administered Current Inpatient Medications Acetaminophen (Acetaminophen 325 Mg Tab) 650 mg PO Q4H PRN PRN Reason: Pain or Fever Stop: 03/30/21 03:36 Hydromorphone HCl (Hydromorphone Inj 0.5 Mg/0.5 Ml Syr) 0.2 mg IV Q4H PRN PRN Reason: Pain Stop: 03/18/21 15:19 Last Admin: 03/05/21 06:31 Dose: 0.2 mg Documented by: Lorazepam (Ativan) 0.5 mg in 1 mls @ 1 mls/min IV Q4H PRN PRN Reason: Agitation Stop: 04/03/21 15:19 Last Admin: 03/05/21 06:31 Dose: 1 mls/min Documented by: Lorazepam (Lorazepam 0.5 Mg Tab) 0.5 mg SL Q4H PRN PRN Reason: Anxiety/Agitation Stop: 04/05/21 01:04 Miscellaneous (Check Scopolamine Patch Placement) 1 ea N/A QS IRENE Stop: 04/05/21 07:59 Last Admin: 03/07/21 16:33 Dose: 1 ea Documented by: Miscellaneous (Remove Transderm-Scop Patch) 1 ea N/A Q72H IRENE Stop: 04/05/21 04:14 Last Admin: 03/06/21 05:29 Dose: Not Given Documented by: Oxycodone HCl (Oxycodone Hcl 5 Mg/0.25 Ml Udp) 5 mg PO Q4H IRENE Stop: 03/21/21 13:44 Last Admin: 03/07/21 17:04 Dose: 5 mg Documented by: Scopolamine (Scopolamine 1 Mg Tdsy) 1 mg TD Q72H IRENE Stop: 04/05/21 04:14 Last Admin: 03/06/21 05:22 Dose: 1 mg Documented by:
[2021-03-08] MEDS: CHECK SCOPOLAMINE PATCH PLACEMENT SCH ×3 (00:37→15:54)
[2021-03-08] MEDS: ATROPINE SULFATE 1% OP SOLN 5 ML BTL SL PRN ×2 (03:20→06:47)
--- NOTE | 2021-03-08 07:18 | Hospitalist Progress Note ---
Date of Service March 08, 2021 Assessment & Plan (1) Atrial fibrillation with RVR: Plan: Atrial fibrillation with RVR Syncopal episode Pulmonary hypertension Can not rule out PE -CXR: No acute process -Normal TSH -ECHO: Left ventricular cavity small. Severe concentric LVH. EF 50-55%. Right ventricle is severely dilated. Right ventricle systolic function is severely reduced. Left atrial size is normal. Right atrium is severely dilated. Aortic valve sclerosis moderate, without significant aortic valvular stenosis. Severe tricuspid regurgitation. Moderate pulmonary hypertension with estimated pulmonary artery pressure being 45 mmHg. -IV heparin, Coumadin, Amiodarone discontinued Transitioned to comfort measures as per family's request given poor prognosis Appreciate palliative care input No distress on exam Continue comfort measures Acute B/L DVT -POA Presumed PE --V/Q scan :Numerous bilateral perfusion defects with decreased tracer activity of the lung bases. These findings may be secondary to layering pleural effusions with bilateral pulmonary opacities as seen on the CT study from earlier today. The study is intermediate probability for pulmonary embolus. --Venous Doppler:On the left, and occlusive deep venous thrombosis seen in the posterior tibial vein. The anterior tibial vein is not seen. Intermittent flow is seen in the peroneal vein. On the right, there is a nonocclusive thrombus in the superficial femoral vein and nonocclusive thrombus in the popliteal vein. Intermittent flow is seen in the posterior tibial and peroneal veins. -Can not obtain CTA due to renal failure -IV Heparin, Coumadin DCed Pneumonia Likely due to aspiration -CT Chest:5.9 x 3 cm focus of dense consolidation within the right upper lobe suggestive of pneumonia. This contains a few lucencies which could reflect minimal cavitation or dilated airways. An underlying neoplastic process is considered unlikely however a follow-up chest CT in 3 months to ensure resolution is recommended. Small bilateral pleural effusions. Mildly dilated fluid-filled esophagus. -Blood Cx: Negative to date -Speech Eval completed Appreciate Pulmonology Input Antibiotics discontinued Acute Kidney Injury on CKD III ? ATN Baseline Cr ~1.6 Cr:2.15>2.45>2.6>2.98 -CT ABD :The unenhanced kidneys are normal in size without hydronephrosis. There is no contour deforming renal mass lesion. No renal calculi are identified. Monitor renal function Avoid nephrotoxic agents as able Appreciate Nephrology Input Monitored volume status Not a candidate for dialysis Appreciate palliative care input B/L Adrenal enlargement Incidental finding on CT scan Abnormal urine analysis UTI can not be ruled out Urine culture:Not confirmatory Likely contaminated sample Chronic anemia Hb at baseline Monitor Dysphagia Mildly dilated fluid-filled esophagus on CT Aspiration precautions Speech eval Pureed diet DVT Px: Was on IV Heparin, Coumadin Code Status DNI/DNR On comfort measures only Admission and Anticipated Discharge Date Admission Date: February 28, 2021 Subjective Patient seen in follow-up of multiple problems, currently on comfort care Laying in bed in no acute distress Does not respond to voice or touch stimuli Followed by palliative medicine Review of Systems Review of Systems: All systems reviewed & are unremarkable except as noted in Subjective Physical Exam Physical Exam: General Appearance: Moderately built and nourished, appears comfortable, not responsive to voice or touch Head: normocephalic, Atraumatic Neck: normal to inspection Respiratory/Chest: No accessory muscle use, + rhonchous breath sounds Cardiovascular:Irregular, No murmur Abdomen/GI:Soft, sluggish bowel sounds present Extremities/Musculoskeletal: + B/L LE and UE edema Neurologic/Psych: not responsive to voice or touch Skin: normal color, warm
--- NOTE | 2021-03-08 15:58 | Palliative Care Progress Note ---
Date of Service March 08, 2021 Assessment & Plan (1) Pain: Plan: Controlled with routine oxycodone. (2) Terminal respiratory secretions: Plan: Controlled with scopolamine patch. (3) Palliative care encounter: Admission and Anticipated Discharge Date Admission Date: February 28, 2021 Subjective No response to voice or touch. Tolerates care per RN. Review of Systems Review of Systems: Unobtainable due to reduced consciousness [place] Symptom Assessment Scale Pain by observation 0/3 Dyspnea by observation 0/3 Palliative Performance Score 10% Physical Exam Constitutional: comfortable ENMT: Mouth: + dry oral mucous membranes Respiratory: no apnea, no audible rhonchi Cardiovascular: mottling of lower extremities noted on knees and feet karis aterally Neurologic: + obtunded PG Care Time/CCT Total # of Minutes Spent Total Time Spent with Patient: Total time spent is greater than 50% in coordination of care (as documented) at patient's floor/unit and/or counseling patient: Coding Level of Care Code 44447 Subseq Hosp Care Lvl 2 Diagnoses Pain R52 Terminal respiratory secretions R09.89 Palliative care encounter Z51.5
[2021-03-08] MEDS: HYDROmorphone INJ 0.5 MG/0.5 ML SYR IV PRN (17:39)
[2021-03-09] MEDS: CHECK SCOPOLAMINE PATCH PLACEMENT SCH ×3 (00:03→15:12)
[2021-03-09] MEDS: SCOPOLAMINE 1 MG TDSY TD SCH (05:47)
[2021-03-09] MEDS: ATROPINE SULFATE 1% OP SOLN 5 ML BTL SL PRN ×3 (05:48→13:47)
--- NOTE | 2021-03-09 11:52 | Hospitalist Progress Note ---
Date of Service March 09, 2021 Assessment & Plan (1) Atrial fibrillation with RVR: Plan: Atrial fibrillation with RVR Syncopal episode Pulmonary hypertension Can not rule out PE -CXR: No acute process -Normal TSH -ECHO: Left ventricular cavity small. Severe concentric LVH. EF 50-55%. Right ventricle is severely dilated. Right ventricle systolic function is severely reduced. Left atrial size is normal. Right atrium is severely dilated. Aortic valve sclerosis moderate, without significant aortic valvular stenosis. Severe tricuspid regurgitation. Moderate pulmonary hypertension with estimated pulmonary artery pressure being 45 mmHg. -IV heparin, Coumadin, Amiodarone discontinued Transitioned to comfort measures as per family's request given poor prognosis Appreciate palliative care input No distress on exam Continue comfort measures Acute B/L DVT -POA Presumed PE --V/Q scan :Numerous bilateral perfusion defects with decreased tracer activity of the lung bases. These findings may be secondary to layering pleural effusions with bilateral pulmonary opacities as seen on the CT study from earlier today. The study is intermediate probability for pulmonary embolus. --Venous Doppler:On the left, and occlusive deep venous thrombosis seen in the posterior tibial vein. The anterior tibial vein is not seen. Intermittent flow is seen in the peroneal vein. On the right, there is a nonocclusive thrombus in the superficial femoral vein and nonocclusive thrombus in the popliteal vein. Intermittent flow is seen in the posterior tibial and peroneal veins. -Can not obtain CTA due to renal failure -IV Heparin, Coumadin DCed Pneumonia Likely due to aspiration -CT Chest:5.9 x 3 cm focus of dense consolidation within the right upper lobe suggestive of pneumonia. This contains a few lucencies which could reflect minimal cavitation or dilated airways. An underlying neoplastic process is considered unlikely however a follow-up chest CT in 3 months to ensure resolution is recommended. Small bilateral pleural effusions. Mildly dilated fluid-filled esophagus. -Blood Cx: Negative to date -Speech Eval completed Appreciate Pulmonology Input Antibiotics discontinued Acute Kidney Injury on CKD III ? ATN Baseline Cr ~1.6 Cr:2.15>2.45>2.6>2.98 -CT ABD :The unenhanced kidneys are normal in size without hydronephrosis. There is no contour deforming renal mass lesion. No renal calculi are identified. Monitor renal function Avoid nephrotoxic agents as able Appreciate Nephrology Input Monitored volume status Not a candidate for dialysis Appreciate palliative care input B/L Adrenal enlargement Incidental finding on CT scan Abnormal urine analysis UTI can not be ruled out Urine culture:Not confirmatory Likely contaminated sample Chronic anemia Hb at baseline Monitor Dysphagia Mildly dilated fluid-filled esophagus on CT Aspiration precautions Speech eval Pureed diet Now on comfort care DVT Px: Was on IV Heparin, Coumadin Code Status DNI/DNR On comfort measures only Admission and Anticipated Discharge Date Admission Date: February 28, 2021 Subjective Patient seen in follow-up of multiple problems, currently on comfort care Laying in bed in no acute distress Does not respond to voice or touch stimuli Followed by palliative medicine Review of Systems Review of Systems: Unobtainable due to cognitive status Physical Exam Physical Exam: General Appearance: Moderately built and nourished, appears comfortable, not responsive to voice or touch Head: normocephalic, Atraumatic Neck: normal to inspection Respiratory/Chest: No accessory muscle use, + rhonchous breath sounds Cardiovascular:Irregular, No murmur Abdomen/GI:Soft, sluggish bowel sounds present Extremities/Musculoskeletal: + B/L LE and UE edema, multiple ecchymoses Neurologic/Psych: not responsive to voice or touch Skin: normal color, warm Results & Data Results & Data ([facility]) Vital Signs (Past 12 Hours) Vital Signs Resp 03/09/21 01:47 10 L Medications Administered Current Inpatient Medications Acetaminophen (Acetaminophen 325 Mg Tab) 650 mg PO Q4H PRN PRN Reason: Pain or Fever Stop: 03/30/21 03:36 Atropine Sulfate (Atropine Sulfate 1% Op Soln 5 Ml Btl) 4 drops SL Q1H PRN PRN Reason: Secretions or pulm congestion Stop: 04/07/21 02:38 Last Admin: 03/09/21 07:18 Dose: 4 drops Documented by: Hydromorphone HCl (Hydromorphone Inj 0.5 Mg/0.5 Ml Syr) 0.2 mg IV Q4H PRN PRN Reason: Pain Stop: 03/18/21 15:19 Last Admin: 03/08/21 17:39 Dose: 0.2 mg Documented by: Lorazepam (Ativan) 0.5 mg in 1 mls @ 1 mls/min IV Q4H PRN PRN Reason: Agitation Stop: 04/03/21 15:19 Last Admin: 03/05/21 06:31 Dose: 1 mls/min Documented by: Lorazepam (Lorazepam 0.5 Mg Tab) 0.5 mg SL Q4H PRN PRN Reason: Anxiety/Agitation Stop: 04/05/21 01:04 Miscellaneous (Check Scopolamine Patch Placement) 1 ea N/A QS IRENE Stop: 04/05/21 07:59 Last Admin: 03/09/21 07:18 Dose: 1 ea Documented by: Miscellaneous (Remove Transderm-Scop Patch) 1 ea N/A Q72H IRENE Stop: 04/05/21 04:14 Last Admin: 03/09/21 05:47 Dose: 1 ea Documented by: Oxycodone HCl (Oxycodone Hcl 5 Mg/0.25 Ml Udp) 5 mg PO Q4H IRENE Stop: 03/21/21 13:44 Last Admin: 03/09/21 09:10 Dose: 5 mg Documented by: Oxycodone HCl (Oxycodone Hcl 5 Mg/0.25 Ml Udp) 5 mg PO Q2H PRN PRN Reason: pain or dyspnea Stop: 03/22/21 10:04 Scopolamine (Scopolamine 1 Mg Tdsy) 1 mg TD Q72H IRENE Stop: 04/05/21 04:14 Last Admin: 03/09/21 05:47 Dose: 1 mg Documented by:
--- NOTE | 2021-03-09 19:26 | Discharge Summary ---
Date of Service March 09, 2021 Admission HPI Per Admitting Provider History obtained from patient, family, and records. Patient is a fair historian. History somewhat limited from patient secondary to hearing impairment. Medical history significant for hypertension, hyperlipidemia, gout, CRI (baseline creatinine 1.5), chronic anemia (baseline hemoglobin of 11 ), cognitive dysfunction as per records. Last confinement December 2020 for small bowel obstruction. Patient admitted to [facility] for rehab 01/18/21. Patient discharged to [facility] 02/04/21. Patient unhappy at current personal care facility residence. Patient not eating much. Poor appetite. Denies depression. Intermittent abdominal discomfort with occasional nausea/emesis. No constipation/diarrhea. Patient yelled for personal care facility staff to take her to the bathroom last night. Transient unresponsiveness while on the toilet. No witnessed seizures. Patient SBP noted to be 70s. Patient tachycardic. A. fib on the monitor upon EMS arrival. Patient more conscious in the ambulance. Patient denies headache, chest pain, S OB. IV Cardizem infusion initiated at the ER for rapid A. fib. IV Cefepime administered for possible sepsis. 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 Admission Exam Per Admitting Provider GENERAL: Comfortable, slightly hard of hearing, slow response to some questions (chronic as per sister), no respiratory distress SKIN: Normal color, warm HEENT: [place] palpebral conjunctivae, no ptosis, dry buccal mucosa NECK : Supple, no tenderness CHEST : CTA, no tenderness HEART : Irregular, tachycardic ABDOMEN: Some distention, nontender EXTREMITIES : Bilateral LE swelling, no LE tenderness, no other conspicuous deformities noted NEUROLOGIC : Coherent, no facial asymmetry, slightly hard of hearing, slow response to some questions, no other gross focality Principal Diagnosis Renal failure (TIFFANY on CKD) Afib with RVR Bilateral LE DVT, presumed PE Pulmonary hypertension Pneumonia Discharge Exam Physical exam - pronounced by 2 RNs Patient with no auscultated breath sounds, absent apical HR, pupils non reactive to light. Discharge Data Allergies Allergy/AdvReac Type Severity Reaction Status Date / Time No Known Allergies Allergy Unknown Verified 02/27/21 21:38 Consultations 02/27/21 23:35 ED Decision to Admit Stat 02/28/21 03:37 Consult Cardiology Routine 03/01/21 08:41 Consult Nephrology Routine 03/03/21 08:47 Consult Palliative Care Routine 03/03/21 09:29 Consult Pulmonology Routine Ordered Studies 02/27/21 20:58 CT head/brain wo con Urgent 02/28/21 00:54 CT abd pelvis wo con Urgent 03/01/21 08:45 US venous doppler LE BI Routine 03/01/21 08:51 CT chest diagnostic wo con Urgent 03/03/21 10:30 CT head/brain wo con Urgent Hospital Course (1) Atrial fibrillation with RVR: Atrial fibrillation with RVR Syncopal episode Pulmonary hypertension Can not rule out PE -CXR: No acute process -Normal TSH -ECHO: Left ventricular cavity small. Severe concentric LVH. EF 50-55%. Right ventricle is severely dilated. Right ventricle systolic function is severely reduced. Left atrial size is normal. Right atrium is severely dilated. Aortic valve sclerosis moderate, without significant aortic valvular stenosis. Severe tricuspid regurgitation. Moderate pulmonary hypertension with estimated pulmonary artery pressure being 45 mmHg. -IV heparin, Coumadin, Amiodarone discontinued Transitioned to comfort measures as per family's request given poor prognosis Appreciate palliative care input No distress on exam Continued comfort measures Acute B/L DVT -POA Presumed PE --V/Q scan :Numerous bilateral perfusion defects with decreased tracer activity of the lung bases. These findings may be secondary to layering pleural effusions with bilateral pulmonary opacities as seen on the CT study from earlier today. The study is intermediate probability for pulmonary embolus. --Venous Doppler:On the left, and occlusive deep venous thrombosis seen in the posterior tibial vein. The anterior tibial vein is not seen. Intermittent flow is seen in the peroneal vein. On the right, there is a nonocclusive thrombus in the superficial femoral vein and nonocclusive thrombus in the popliteal vein. Intermittent flow is seen in the posterior tibial and peroneal veins. -Can not obtain CTA due to renal failure -IV Heparin, Coumadin DCed Pneumonia Likely due to aspiration -CT Chest:5.9 x 3 cm focus of dense consolidation within the right upper lobe suggestive of pneumonia. This contains a few lucencies which could reflect minimal cavitation or dilated airways. An underlying neoplastic process is considered unlikely however a follow-up chest CT in 3 months to ensure resolution is recommended. Small bilateral pleural effusions. Mildly dilated fluid-filled esophagus. -Blood Cx: Negative to date -Speech Eval completed Appreciate Pulmonology Input Antibiotics discontinued Acute Kidney Injury on CKD III ? ATN Baseline Cr ~1.6 Cr:2.15>2.45>2.6>2.98 -CT ABD :The unenhanced kidneys are normal in size without hydronephrosis. There is no contour deforming renal mass lesion. No renal calculi are identified. Monitor renal function Avoid nephrotoxic agents as able Appreciate Nephrology Input Monitored volume status Not a candidate for dialysis Appreciate palliative care input B/L Adrenal enlargement Incidental finding on CT scan Abnormal urine analysis UTI can not be ruled out Urine culture:Not confirmatory Likely contaminated sample Chronic anemia Hb at baseline Monitor Dysphagia Mildly dilated fluid-filled esophagus on CT Aspiration precautions Speech eval Pureed diet Now on comfort care DVT Px: Was on IV Heparin, Coumadin Code Status DNI/DNR On comfort measures only Pt on March 09, at 18:30. Total Time Total Time Spent Total Time Spent (In Minutes): 0 Discharge Plan Discharge Items Patient Disposition: Other Date/Time: 03/09/21 18:30
== END 2021-03-09 21:32 | disposition expired | DRG 308 ==
LOC: ED 20:50 → SUATTDRO 02-28 01:10 → 2S 02-28 01:10 → 2W 03-04 15:30 → 3E 03-08 17:33
DX: J69.0 Pneumonitis due to inhalation of food and vomit; I48.91 Unspecified atrial fibrillation; N17.0 Acute kidney failure with tubular necrosis; N39.0 Urinary tract infection, site not specified; E83.42 Hypomagnesemia; Z51.5 Encounter for palliative care; Z96.653 Presence of artificial knee joint, bilateral; I27.20 Pulmonary hypertension, unspecified; I12.9 Hypertensive chronic kidney disease with stage 1 through stage 4 chronic kidney disease, or unspecified chronic kidney disease; I26.99 Other pulmonary embolism without acute cor pulmonale; I82.4Z3 Acute embolism and thrombosis of unspecified deep veins of distal lower extremity, bilateral; J98.11 Atelectasis; J91.8 Pleural effusion in other conditions classified elsewhere; N18.30 Chronic kidney disease, stage 3 unspecified; I36.1 Nonrheumatic tricuspid (valve) insufficiency; M10.9 Gout, unspecified; R64 Cachexia; R13.10 Dysphagia, unspecified; D64.9 Anemia, unspecified; Z66 Do not resuscitate; R73.9 Hyperglycemia, unspecified; I82.423 Acute embolism and thrombosis of iliac vein, bilateral